=== PATIENT | male | born 1970 | race Caucasian/White ===

== ENCOUNTER 2018-11-03 21:04 | Emergency (ER) | payer OTHER ==
[2018-11-03] MEDS ORDERED: KETOROLAC 30 MG/ML INJ ONE (21:45)
--- NOTE | 2018-11-03 22:23 | ER ---
Nurse's Notes [facility] Name: Jd Devries Age: 48 yrs Sex: Male : 1970 Arrival Date: 11/03/2018 Time: 21:12 Bed 9 Private MD: Diagnosis: Pain in right foot Presentation: 11/03 21:17 Presenting complaint: Patient states: I had an ankle injury in the 90s and it was fine la1 for a while but for the last month it has been getting worse and worse. Pain and burning up my ankle. Unable to work today due to pain and not able to bare weight. Transition of care: patient was not received from another setting of care. Onset of symptoms was November 03, 2018. Risk Assessment: Do you want to hurt yourself or someone else? Patient reports no desire to harm self or others. Initial Sepsis Screen: Does the patient meet any 2 criteria? No. Patient's initial sepsis screen is negative. Does the patient have a suspected source of infection? No. Patient's initial sepsis screen is negative. Care prior to arrival: None. 21:17 Method Of Arrival: Wheelchair la1 21:17 Acuity: PARRIS 4 la1 Historical: - Allergies: 21:18 PENICILLINS; la1 - PMHx: 21:18 Hypertension; Sleep Apnea; High Cholesterol; la1 - Immunization history:: Adult Immunizations up to date. - Social history:: Smoking status: Patient/guardian denies using tobacco. - Ebola Screening: : No symptoms or risks identified at this time. Screenin:23 Abuse screen: Denies threats or abuse. Nutritional screening: No deficits noted. la1 Tuberculosis screening: No symptoms or risk factors identified. Fall Risk None identified. Assessment: 21:22 General: Appears uncomfortable, Behavior is calm, cooperative. Pain: Complains of pain la1 in right lateral malleolus and right Achilles. Neuro: Level of Consciousness is awake, alert, obeys commands, Oriented to person, place, time, situation. Cardiovascular: Capillary refill < 3 seconds Patient's skin is warm and dry. Respiratory: Airway is patent Respiratory effort is even, unlabored. GI: No signs and/or symptoms were reported involving the gastrointestinal system. : No signs and/or symptoms were reported regarding the genitourinary system. Musculoskeletal: Circulation, motion, and sensation intact. Range of motion: limited in right ankle. 22:35 Reassessment: Patient appears in no apparent distress at this time. Patient is alert, aa1 oriented x 3, equal unlabored respirations, skin warm/dry/pink. Discussed d/c \T\ f/u instructions with pt; denies questions or concerns at this time. Vital Signs: 21:19 BP 163 / 96; Pulse 62; Resp 18; Temp 97.8(TE); Pulse Ox 98% on R/A; Weight 140.16 kg; la1 Height 5 ft. 10 in. (177.80 cm); Pain 3/10; 21:19 Body Mass Index 44.34 (140.16 kg, 177.80 cm) la1 ED Course: 21:12 Patient arrived in ED. ds1 21:18 Triage completed. la1 21:18 Arm band placed on left wrist. la1 21:22 Augie Tyson RN is Primary Nurse. la1 21:23 Call light in reach. la1 21:28 Aly Mckeon PA is PHCP. [facility] 21:28 Jorge Cary MD is Attending Physician. [facility] 22:32 Ankle Right 3 View XRAY In Process Unspecified. EDMS 22:35 No provider procedures requiring assistance completed. Patient did not have IV access aa1 during this emergency room visit. Crutch training done. Rickey wrap to right ankle. Administered Medications: 21:44 Drug: Ketorolac 30 mg Route: IM; Site: right gluteus; la1 22:35 Follow up: Response: No adverse reaction; Pain is decreased aa1 Outcome: 22:22 Discharge ordered by . [facility] 22:35 Discharged to home ambulatory, with crutches, with significant other. aa1 22:35 Condition: good 22:35 Discharge instructions given to patient, Instructed on discharge instructions, follow up and referral plans. crutch walking, Demonstrated understanding of instructions, follow-up care, crutch walking. 22:36 Instructed on medication usage, Demonstrated understanding of medications, aa1 Prescriptions given X 1. 22:37 Patient left the ED. aa1 Signatures: Dispatcher [employer] EDMS Brii Little RN RN aa1 Aly Mckeon PA PA [facility] Grace Ontiveros ds1 Attema, Augie, RN RN la1
--- NOTE | 2018-11-03 22:24 | EDPHYS ---
Physician Documentation [facility] Name: Jd Devries Age: 48 yrs Sex: Male : 1970 Arrival Date: 11/03/2018 Time: 21:12 Bed 9 Private MD: ED Physician Jorge Cary HPI: 11/03 21:28 This 48 yrs old Male presents to ER via Wheelchair with complaints of Ankle jmm Injury. 21:28 The patient presents with pain, that is chronic. Onset: The symptoms/episode jmm began/occurred gradually, 1 month(s) ago. This is a 48 year old male with a history of htn, hlp that presents to the ED with complaints of right ankle swelling and pain over the past month and developing in creased pain to his right calcaneus region. . Historical: - Allergies: 21:18 PENICILLINS; la1 - PMHx: 21:18 Hypertension; Sleep Apnea; High Cholesterol; la1 - Immunization history:: Adult Immunizations up to date. - Social history:: Smoking status: Patient/guardian denies using tobacco. - Ebola Screening: : No symptoms or risks identified at this time. ROS: 21:28 Constitutional: Negative for fever, chills, and weight loss, Cardiovascular: Negative jmm for chest pain, palpitations, and edema, Respiratory: Negative for shortness of breath, cough, wheezing, and pleuritic chest pain. 21:28 MS/extremity: Positive for pain, swelling. 21:28 All other systems are negative. Exam: 21:28 Constitutional: This is a well developed, well nourished patient who is awake, alert, jmm and in no acute distress. Head/Face: atraumatic. Eyes: EOMI, no conjunctival erythema appreciated ENT: Moist Mucus Membranes Neck: Trachea midline, Supple Chest/axilla: Normal chest wall appearance and motion. Cardiovascular: Regular rate and rhythm. No edema appreciated Respiratory: Normal respirations, no respiratory distress appreciated Abdomen/GI: Non distended, soft Back: Normal ROM 21:28 Musculoskeletal/extremity: FROM noted to the right ankle, pain on palpation of right calcaneus, TTP, no erythema appreciated, compartments are soft, full dorsalis pulse, NVI. 21:28 Skin: Appearance: Color: normal in color. 21:28 Neuro: Orientation: is normal, Mentation: is normal, Memory: is normal. 21:28 Psych: Behavior/mood is pleasant, cooperative. Vital Signs: 21:19 BP 163 / 96; Pulse 62; Resp 18; Temp 97.8(TE); Pulse Ox 98% on R/A; Weight 140.16 kg; la1 Height 5 ft. 10 in. (177.80 cm); Pain 3/10; 21:19 Body Mass Index 44.34 (140.16 kg, 177.80 cm) la1 MDM: 21:28 Patient medically screened. [facility] 22:21 Data reviewed: vital signs, nurses notes. Counseling: I had a detailed discussion with [facility] the patient and/or guardian regarding: the historical points, exam findings, and any diagnostic results supporting the discharge/admit diagnosis, radiology results, the need for outpatient follow up, to return to the emergency department if symptoms worsen or persist or if there are any questions or concerns that arise at home. 11/03 21:28 Order name: Ankle Right 3 View XRAY [facility] 11/03 22:08 Order name: Rickey wrap-joint; Complete Time: 22:36 [facility] 11/03 22:12 Order name: Crutches; Complete Time: 22:35 [facility] Administered Medications: 21:44 Drug: Ketorolac 30 mg Route: IM; Site: right gluteus; [facility] 22:35 Follow up: Response: No adverse reaction; Pain is decreased aa1 Disposition: 11/04 02:35 Co-signature as Attending Physician, Jorge Cary MD. Disposition: 11/03/18 22:22 Discharged to Home. Impression: Pain in right foot. - Condition is Stable. - Discharge Instructions: Foot Pain. - Prescriptions for Medrol (Vince) 4 mg Oral Tablets, Dose Pack - take 1 tablet by ORAL route as directed - follow package instructions; 1 packet. - Medication Reconciliation Form, Thank You Letter, Antibiotic Education, Prescription Opioid Use form. - Follow up: Private Physician; When: 2 - 3 days; Reason: Recheck today's complaints, Continuance of care, Re-evaluation by your physician. Signatures: Dispatcher [employer] EDBrii Gonzalez RN RN aa1 Aly Mckeon PA PA [facility] Augie Tyson RN RN la1 Jorge Cary MD MD Corrections: (The following items were deleted from the chart) 11/03 22:37 22:22 11/03/2018 22:22 Discharged to Home. Impression: Pain in right foot. Condition is aa1 Stable. Forms are Medication Reconciliation Form, Thank You Letter, Antibiotic Education, Prescription Opioid Use. Follow up: Private Physician; When: 2 - 3 days; Reason: Recheck today's complaints, Continuance of care, Re-evaluation by your physician. ligia
[2018-11-03 23:46] VITALS: BP 163/96; TEMP 97.8; O2SAT 98
--- NOTE | 2018-11-04 09:06 | RAD REPORT ---
EXAM DESCRIPTION: RAD - Ankle Right 3 View - 11/03/2018 10:28 pm CLINICAL HISTORY: Right ankle pain and swelling, progressive pain pattern from a remote injury COMPARISON: Right ankle May 2014 FINDINGS: No fracture, dislocation or periosteal reaction. No joint effusion seen. No joint space na rrowing. Soft tissues are not substantially different from comparison. Spurring at the Achilles tendo n attachment is present but not substantially different. Spurring at the plantar tendon attachment melara s progressed minimally from 2015. IMPRESSION: No acute bone or joint finding. Minimal progression of plantar spurring since 2015.
== END 2018-11-03 22:37 | disposition home or self-care (01) ==
LOC: ER 21:04
DX: M79.671 Pain in right foot (principal); I10 Essential (primary) hypertension; Z88.0 Allergy status to penicillin
CPT/HCPCS: 96372; 99284

== ENCOUNTER 2019-10-17 06:47 | Emergency (ER) | payer BC, OTHER ==
[2019-10-17] MEDS ORDERED: TETANUS & DIPHTHERIA TOX,ADULT 0.5 ML VIAL ONE (07:15)
[2019-10-17] MEDS ORDERED: LIDOCAINE 1% MPF 30 ML VIAL ONE (07:15)
--- NOTE | 2019-10-17 07:44 | EDPHYS ---
Physician Documentation [facility] Name: Jd Devries Age: 49 yrs Sex: Male : 1970 Arrival Date: 10/17/2019 Time: 06:50 Bed 5 Private MD: ED Physician Elvis So HPI: 10/16 06:57 This 49 yrs old Male presents to ER via Unassigned with complaints of Head jmm Injury-Adult. 06:57 The patient or guardian reports injury, a laceration. The complaints affect the left jmm supraorbital ridge. Onset: The symptoms/episode began/occurred acutely, just prior to arrival. This is a 49 year old male that presents to the ED with complaints of a laceration to his left eyebrow. Patient states he was awoken to his dogs fighting in his bed. He believes he was scratched. Not UTD on tetanus immunization. . Historical: - Allergies: 06:58 PENICILLINS; sg - PMHx: 06:58 High Cholesterol; Hypertension; Sleep Apnea; sg - Immunization history:: Adult Immunizations not up to date, Last tetanus immunization: > 10 years ago. - Social history:: Smoking status: Patient denies any tobacco usage or history of. ROS: 06:57 Constitutional: Negative for fever, chills, and weight loss, Cardiovascular: Negative jmm for chest pain, palpitations, and edema, Respiratory: Negative for shortness of breath, cough, wheezing, and pleuritic chest pain. 06:57 Skin: Positive for laceration(s). 06:57 All other systems are negative. Exam: 06:57 Constitutional: This is a well developed, well nourished patient who is awake, alert, jmm and in no acute distress. 06:57 ENT: Moist Mucus Membranes Neck: Trachea midline, Supple Chest/axilla: Normal chest wall appearance and motion. Cardiovascular: Regular rate and rhythm. No edema appreciated Respiratory: Normal respirations, no respiratory distress appreciated Abdomen/GI: Non distended, soft Back: Normal ROM 06:57 Head/face: 3 cm laceration noted to the left upper eyebrow. 06:57 Skin: 3 cm laceration noted to the left supraorbital ridge region. . 06:57 Neuro: Orientation: is normal, Mentation: is normal, Memory: is normal. 06:57 Psych: Behavior/mood is pleasant, cooperative. Vital Signs: 07:02 BP 163 / 106; Pulse 66; Resp 18; Temp 97; Pulse Ox 97% ; Weight 147.42 kg; Height 5 ft. wh 10 in. (177.80 cm); 07:02 Body Mass Index 46.63 (147.42 kg, 177.80 cm) Tk Coma Score: 06:56 Eye Response: spontaneous(4). Verbal Response: oriented(5). Motor Response: obeys sg commands(6). Total: 15. Laceration: 07:40 Wound Repair of 3cm ( 1.2in ) subcutaneous laceration to left supraorbital ridge. jmm Distal neuro/vascular/tendon intact. Anesthesia: Local anesthetic administered with 3 mls of 1% lidocaine. Wound prep: Simple cleansing with betadine by me. Skin closed with 10 6-0 Prolene using simple sutures and sterile technique. Patient tolerated well. MDM: 06:54 Patient medically screened. [facility] 07:40 Data reviewed: vital signs, nurses notes. Counseling: I had a detailed discussion with ligia the patient and/or guardian regarding: the historical points, exam findings, and any diagnostic results supporting the discharge/admit diagnosis, the need for outpatient follow up, to return to the emergency department if symptoms worsen or persist or if there are any questions or concerns that arise at home. ED course: Patient given wound infection return precautions. . Administered Medications: 07:09 Drug: Tetanus-Diphtheria Toxoid Adult 0.5 ml {Relief Cook: [employer]. Exp: sv 05/16/2022. Lot #: [id number]. } Route: IM; Site: right deltoid; 07:49 Follow up: Response: No adverse reaction sv 07:38 Drug: Lidocaine (1 %) 20 ml {Note: given to Aly MEJIAS for procedure.} Volume: 20 ml; sv Route: Infiltration; Disposition: 10:37 Co-signature as Attending Physician, Elvis So MD I agree with the assessment and hailey plan of care. Disposition: 10/17/19 07:43 Discharged to Home. Impression: Facial Laceration. - Condition is Stable. - Discharge Instructions: Facial Laceration. - Prescriptions for Bactrim DS 800- 160 mg Oral Tablet - take 1 tablet by ORAL route every 12 hours for 7 days; 14 tablet. - Medication Reconciliation Form, Thank You Letter, Antibiotic Education, Prescription Opioid Use form. - Follow up: Private Physician; When: 5 - 6 days; Reason: Recheck today's complaints, Continuance of care, Staple/Suture removal, Re-evaluation by your physician. Signatures: Ninfa De La Cruz RN RN sv Gay, Steven, RN RN sg Anderson, Corey, MD MD cha Mickail, Joel, PA PA jmm Corrections: (The following items were deleted from the chart) 07:49 07:43 10/17/2019 07:43 Discharged to Home. Impression: Facial Laceration. Condition is sv Stable. Forms are Medication Reconciliation Form, Thank You Letter, Antibiotic Education, Prescription Opioid Use. Follow up: Private Physician; When: 5 - 6 days; Reason: Recheck today's complaints, Continuance of care, Staple/Suture removal, Re-evaluation by your physician. ligia
--- NOTE | 2019-10-17 07:44 | ER ---
Nurse's Notes [facility] Name: Jd Devries Age: 49 yrs Sex: Male : 1970 Arrival Date: 10/17/2019 Time: 06:50 Bed 5 Private MD: Diagnosis: Facial Laceration Presentation: 10/16 06:56 Chief complaint: Patient states: My dogs were fighting, and I was breaking up the fight sg when I think one of them scratched my left eye brow. Coronavirus screen: Patient denies a cough. Patient denies shortness of breath or difficulty breathing. Patient denies measured and/or subjective temperature greater than 100.4F prior to today's visit. Patient denies travel on a cruise ship or to a country the [facility] currently lists as an affected area. Patient denies contact with known and/or suspected case of COVID-19. Proceed with normal triage. Ebola Screen: Patient negative for fever greater than or equal to 101.5 degrees Fahrenheit, and additional compatible Ebola Virus Disease symptoms Patient denies exposure to infectious person. Patient denies travel to an Ebola-affected area in the 21 days before illness onset. No symptoms or risks identified at this time. Mechanism of Injury: The problem was sustained at home, resulted from. Initial Sepsis Screen: Does the patient meet any 2 criteria? No. Patient's initial sepsis screen is negative. Does the patient have a suspected source of infection? Yes: Skin breakdown/wound. Risk Assessment: Do you want to hurt yourself or someone else? Patient reports no desire to harm self or others. Onset of symptoms was October 17, 2019. Care prior to arrival: None. Transition of care: patient was not received from another setting of care. 06:56 Method Of Arrival: Ambulatory 06:56 Acuity: PARRIS 4 sg Triage Assessment: 07:03 Neuro: Reports. wh 07:10 General: Appears in no apparent distress. comfortable, well developed, Behavior is sv calm, cooperative, appropriate for age. Pain: Complains of pain in left eye. Neuro: Level of Consciousness is awake, alert, obeys commands, Oriented to person, place, time, situation, Moves all extremities. Full function. Respiratory: Respiratory effort is even, unlabored, Respiratory pattern is regular, symmetrical. Derm: Skin is pink, warm \T\ dry. Injury Description: Laceration sustained to left eye is 2.6 to 7.5 cm long. Historical: - Allergies: 06:58 PENICILLINS; sg - PMHx: 06:58 High Cholesterol; Hypertension; Sleep Apnea; sg - Immunization history:: Adult Immunizations not up to date, Last tetanus immunization: > 10 years ago. - Social history:: Smoking status: Patient denies any tobacco usage or history of. Screenin:02 Abuse screen: Denies threats or abuse. Denies injuries from another. Nutritional wh screening: No deficits noted. Tuberculosis screening: No symptoms or risk factors identified. Fall Risk None identified. Assessment: 07:24 Reassessment: Aly MEJIAS at bedside. sv 07:48 Reassessment: Patient appears in no apparent distress at this time. Patient and/or sv family updated on plan of care and expected duration. Pain level reassessed. Patient is alert, oriented x 3, equal unlabored respirations, skin warm/dry/pink. Patient denies pain at this time. Patient states feeling better. Patient states symptoms have improved. Vital Signs: 07:02 BP 163 / 106; Pulse 66; Resp 18; Temp 97; Pulse Ox 97% ; Weight 147.42 kg; Height 5 ft. wh 10 in. (177.80 cm); 07:02 Body Mass Index 46.63 (147.42 kg, 177.80 cm) Tk Coma Score: 06:56 Eye Response: spontaneous(4). Verbal Response: oriented(5). Motor Response: obeys sg commands(6). Total: 15. ED Course: 06:50 Patient arrived in ED. cl3 06:51 Elvis So MD is Attending Physician. hailey 06:52 Aly Mckeon PA is PHCP. jmm 06:56 Arm band placed on. sg 06:58 Triage completed. sg 07:02 Ninfa De La Cruz, RN is Primary Nurse. sv 07:03 Patient has correct armband on for positive identification. Bed in low position. Call wh light in reach. Side rails up X 1. Pulse ox on. NIBP on. 07:11 Assist provider with laceration repair Set up tray. sv 07:24 Patient did not have IV access during this emergency room visit. sv 07:43 Assist provider with laceration repair on left eye that was between 2.6 to 7.5 cm using sv sutures. Performed by Aly MEJIAS Patient tolerated well. Administered Medications: 07:09 Drug: Tetanus-Diphtheria Toxoid Adult 0.5 ml {Electrical Laboratory Technician: [employer]. Exp: sv 05/16/2022. Lot #: [id number]. } Route: IM; Site: right deltoid; 07:49 Follow up: Response: No adverse reaction sv 07:38 Drug: Lidocaine (1 %) 20 ml {Note: given to Aly MEJIAS for procedure.} Volume: 20 ml; sv Route: Infiltration; Outcome: 07:43 Discharge ordered by . ligia 07:48 Discharged to home ambulatory. sv 07:48 Condition: stable 07:48 Discharge instructions given to patient, Instructed on discharge instructions, follow up and referral plans. medication usage, wound care, Demonstrated understanding of instructions, follow-up care, medications, wound care, Prescriptions given X 1. 07:49 Patient left the ED. sv Signatures: Ninfa De La Cruz RN RN sv Gay, Steven, RN RN sg Anderson, Corey, MD MD cha Mickail, Joel, PA PA jmm Habalo, Winsy wh Lewis, Charde cl3
[2019-10-17 07:54] VITALS: BP 163/106; TEMP 97; O2SAT 97
== END 2019-10-17 07:49 | disposition home or self-care (01) ==
LOC: ER 06:47
PROC: 0JQ10ZZ Repair Face Subcutaneous Tissue and Fascia, Open Approach (ICD-10-PCS; principal; 2019-10-17)
DX: S01.112A Laceration without foreign body of left eyelid and periocular area, initial encounter (principal); W45.8XXA Other foreign body or object entering through skin, initial encounter; Y93.89 Activity, other specified; Y92.009 Unspecified place in unspecified non-institutional (private) residence as the place of occurrence of the external cause; Z23 Encounter for immunization; Z88.0 Allergy status to penicillin; I10 Essential (primary) hypertension
CPT/HCPCS: 90471; 90714; 99284

== ENCOUNTER 2019-11-10 21:19 | Emergency (ER) | payer BC ==
[2019-11-10] MEDS ORDERED: HYDRALAZINE HCL 20 MG/ML VIAL ONE ×2 (22:30→23:06)
[2019-11-10 22:32] LABS: Absolute Lymphocytes (CBC) 2.8 K/uL (0.7-4.9); Basophils % 0.4 % (0-1.3); Hematocrit 43.6 % (39.6-49.0); Lymphocytes % 30.8 % (15.3-44.8); MPV 9.6 fL (7.6-11.3); RBC Red Blood Cell Count 5.38 M/uL (4.33-5.43)
[2019-11-10 22:33] LABS: Protime INR 0.99
[2019-11-10 22:49] LABS: ALT/SGPT 57 U/L (12-78); Albumin 3.7 g/dL (3.4-5.0); Alkaline Phosphatase 135 U/L (45-117); BUN Blood Urea Nitrogen 19 mg/dL (7-18); Bicarbonate 28 mmol/L (21-32); Bilirubin Direct < 0.1 mg/dL (0-0.2); Bilirubin Total 0.3 mg/dL (0.2-1.0); Glucose Level 128 mg/dL (74-106); NT PRO-BNP 12 pg/mL (<125); Protein, Total 7.2 g/dL (6.4-8.2); Sodium Level 142 mmol/L (136-145); Troponin (Emerg Dept Use Only) < 0.02 ng/mL (0.0-0.045)
[2019-11-10 22:53] LABS: AST/SGOT 25 U/L (15-37); Magnesium 2.4 mg/dL (1.8-2.4); Potassium 3.7 mmol/L (3.5-5.1)
[2019-11-10] MEDS ORDERED: LABETALOL 20 MG/4ML SYRINGE IV ONE (23:56)
[2019-11-11] MEDS ORDERED: cloNIDine HCL 0.1 MG TAB ONE (00:13)
[2019-11-11] MEDS ORDERED: LABETALOL 20 MG/4ML SYRINGE IV ONE (00:13)
--- NOTE | 2019-11-11 00:14 | ER ---
Nurse's Notes [facility] Name: Jd Devries Age: 49 yrs Sex: Male : 1970 Arrival Date: 11/10/2019 Time: 21:21 Bed 13 Private MD: Diagnosis: Hypertension secondary to other renal disorders Presentation: 11/09 21:41 Chief complaint: Patient states: " My blood pressure has been elevated today, I even vc took a second dose, about 1900, to try and help with my blood pressure I started feeling short of breath with exertion, I can't even walk to the bathroom without getting winded, I'm having some chest pressure and a tension headache.". Coronavirus screen: shortness of breath, Client presents with at least one sign or symptom that may indicate coronavirus-19. Standard/surgical mask placed on the client. Ebola Screen: No symptoms or risks identified at this time. 21:41 Method Of Arrival: Ambulatory vc 21:45 Initial Sepsis Screen: Does the patient meet any 2 criteria? RR > 20 per min. No. vc Patient's initial sepsis screen is negative. Does the patient have a suspected source of infection? No. Patient's initial sepsis screen is negative. Risk Assessment: Do you want to hurt yourself or someone else? Patient reports no desire to harm self or others. Onset of symptoms was November 10, 2019. 21:45 Acuity: PARRIS 3 vc Triage Assessment: 21:49 General: Appears in no apparent distress. uncomfortable, obese, Behavior is calm, vc cooperative, appropriate for age. Respiratory: Reports shortness of breath on exertion Airway is patent Respiratory effort is even, labored, Respiratory pattern is regular, hyperventilation Onset: The symptoms/episode began/occurred today, the patient has mild shortness of breath. Historical: - Allergies: 21:47 PENICILLINS; vc - PMHx: 21:47 High Cholesterol; Hypertension; Sleep Apnea; vc - Immunization history:: Adult Immunizations up to date. - Social history:: Smoking status: Patient reports the use of cigarette tobacco products, denies chronic smoking, but will smoke occasionally. Screenin:48 Abuse screen: Denies threats or abuse. Nutritional screening: No deficits noted. vc Tuberculosis screening: No symptoms or risk factors identified. Fall Risk None identified. Assessment: 21:48 Pain: Complains of pain in head. Cardiovascular: Rhythm is regular. Respiratory: Airway vc is patent Respiratory effort is even. 22:27 General: Appears in no apparent distress. obese, Behavior is calm, cooperative. Neuro: ls4 No deficits noted. Cardiovascular: Edema is 1+ to left ankle, left foot, right ankle and right foot. Respiratory: Breath sounds are clear bilaterally. Derm: Skin is pink, warm \\T\\ dry. 22:30 Reassessment: Patient appears in no apparent distress at this time. Patient and/or ls4 family updated on plan of care and expected duration. Pain level reassessed. Patient is alert, oriented x 3, equal unlabored respirations, skin warm/dry/pink. 23:30 Reassessment: Assumed care of patient from Griselda Villarreal RN. vc 23:37 Reassessment: Patient appears in no apparent distress at this time. Patient and/or vc family updated on plan of care and expected duration. Pain level reassessed. Patient is alert, oriented x 3, equal unlabored respirations, skin warm/dry/pink. 11/10 00:25 Reassessment: Patient appears in no apparent distress at this time. Patient and/or vc family updated on plan of care and expected duration. Pain level reassessed. Patient is alert, oriented x 3, equal unlabored respirations, skin warm/dry/pink. 00:25 Reassessment: Patient states feeling better. Patient states symptoms have improved. vc Vital Signs: 11/09 21:45 BP 163 / 89; Pulse 75; Resp 23; Temp 98.1; Pulse Ox 98% on R/A; Weight 145.15 kg; vc Height 5 ft. 10 in. (177.80 cm); Pain 0/10; 22:28 BP 155 / 110; Pulse 72; Resp 16; Pulse Ox 99% on R/A; Pain 0/10; ls4 23:30 BP 171 / 83; Pulse 90; Resp 18; Pulse Ox 96% on R/A; vc 23:51 BP 155 / 85; Pulse 89; Resp 18; Pulse Ox 95% on R/A; vc 11/10 00:00 BP 143 / 84; Pulse 91; Resp 20; Pulse Ox 97% on R/A; vc 00:10 BP 129 / 76; Pulse 92; Resp 17; Pulse Ox 96% on R/A; vc 11/09 21:45 Body Mass Index 45.91 (145.15 kg, 177.80 cm) vc ED Course: 11/09 21:21 Patient arrived in ED. ag3 21:38 Griselda Villarreal, MARIZOL is Primary Nurse. ls4 21:42 Wilner Buckner MD is Attending Physician. tw4 21:47 Triage completed. vc 21:50 Arm band placed on right wrist. vc 21:50 Patient has correct armband on for positive identification. Bed in low position. Pulse vc ox on. NIBP on. 21:55 XRAY Chest (1 view) In Process Unspecified. EDMS 22:26 No provider procedures requiring assistance completed. Initial lab(s) drawn, by isa mccain sent to lab. EKG done, by ED staff, reviewed by Wilner Buckner MD. Inserted saline lock: 18 gauge in right antecubital area, using aseptic technique. Blood collected. Patient maintains SpO2 saturation greater than 95% on room air. 11/10 00:25 IV discontinued, intact, bleeding controlled, No redness/swelling at site. Pressure vc dressing applied. Administered Medications: 11/09 22:25 Drug: hydrALAZINE 10 mg Route: IV; Rate: bolus; Site: right antecubital; ls4 23:08 Drug: hydrALAZINE 10 mg Route: IV; Rate: bolus; Site: right antecubital; ls4 23:49 Drug: Labetalol 10 mg Route: IVP; Site: right antecubital; vc 23:58 Follow up: Response: Blood pressure is unchanged vc 23:51 Drug: cloNIDine 0.1 mg Route: PO; vc 11/10 00:15 Follow up: Response: No adverse reaction; Blood pressure is lowered vc 00:00 Drug: Labetalol 20 mg Route: IVP; Infused Over: 2 mins; Site: right antecubital; vc 00:15 Follow up: Response: Blood pressure is lowered vc Outcome: 00:13 Discharge ordered by . tw4 00:25 Discharged to home ambulatory. vc 00:25 Condition: improved 00:25 Discharge instructions given to patient, Instructed on discharge instructions, follow up and referral plans. medication usage, Demonstrated understanding of instructions, follow-up care, medications, Prescriptions given X 1. 00:27 Patient left the ED. oe Signatures: Dispatcher [employer] EDPR Nuno, Wilner Chan MD MD tw4 Annabel Downing ag3 Griselda Villarreal, MARIZOL RN ls4 Kirstin Kamara RN RN vc
--- NOTE | 2019-11-11 00:14 | EDPHYS ---
Physician Documentation [facility] Name: Jd Devries Age: 49 yrs Sex: Male : 1970 Arrival Date: 11/10/2019 Time: 21:21 Bed 13 Private MD: ED Physician Wilner Buckner HPI: 11/10 06:19 This 49 yrs old Male presents to ER via Ambulatory with complaints of tw4 Shortness Of Breath. 06:19 The patient has shortness of breath with light activity. Onset: The symptoms/episode tw4 began/occurred today. Duration: The symptoms are continuous, and are steadily getting worse. The patient's shortness of breath has no apparent modifying factors. Associated signs and symptoms: The patient has no apparent associated signs or symptoms. Severity of symptoms: At their worst the symptoms were moderate in the emergency department the symptoms are unchanged. The patient has not experienced similar symptoms in the past. Historical: - Allergies: 11/09 21:47 PENICILLINS; vc - PMHx: 21:47 High Cholesterol; Hypertension; Sleep Apnea; vc - Immunization history:: Adult Immunizations up to date. - Social history:: Smoking status: Patient reports the use of cigarette tobacco products, denies chronic smoking, but will smoke occasionally. ROS: 11/10 06:19 Constitutional: Negative for fever, chills, and weight loss, Eyes: Negative for injury, tw4 pain, redness, and discharge, ENT: Negative for injury, pain, and discharge, Cardiovascular: Negative for chest pain, palpitations, and edema, Abdomen/GI: Negative for abdominal pain, nausea, vomiting, diarrhea, and constipation, Back: Negative for injury and pain, MS/Extremity: Negative for injury and deformity, Skin: Negative for injury, rash, and discoloration, Neuro: Negative for headache, weakness, numbness, tingling, and seizure. Respiratory: Positive for cough, dyspnea on exertion, shortness of breath, Negative for hemoptysis, orthopnea, pleurisy. Exam: 06:19 Constitutional: This is a well developed, well nourished patient who is awake, alert, tw4 and in no acute distress. Head/Face: Normocephalic, atraumatic. Chest/axilla: Normal chest wall appearance and motion. Nontender with no deformity. No lesions are appreciated. Cardiovascular: Regular rate and rhythm with a normal S1 and S2. No gallops, murmurs, or rubs. Normal PMI, no JVD. No pulse deficits. Respiratory: Lungs have equal breath sounds bilaterally, clear to auscultation and percussion. No rales, rhonchi or wheezes noted. No increased work of breathing, no retractions or nasal flaring. Abdomen/GI: Soft, non-tender, with normal bowel sounds. No distension or tympany. No guarding or rebound. No evidence of tenderness throughout. Back: No spinal tenderness. No costovertebral tenderness. Full range of motion. MS/ Extremity: Pulses equal, no cyanosis. Neurovascular intact. Full, normal range of motion. Neuro: Awake and alert, GCS 15, oriented to person, place, time, and situation. Cranial nerves II-XII grossly intact. Motor strength 5/5 in all extremities. Sensory grossly intact. Cerebellar exam normal. Normal gait. Vital Signs: 11/09 21:45 BP 163 / 89; Pulse 75; Resp 23; Temp 98.1; Pulse Ox 98% on R/A; Weight 145.15 kg; vc Height 5 ft. 10 in. (177.80 cm); Pain 0/10; 22:28 BP 155 / 110; Pulse 72; Resp 16; Pulse Ox 99% on R/A; Pain 0/10; ls4 23:30 BP 171 / 83; Pulse 90; Resp 18; Pulse Ox 96% on R/A; vc 23:51 BP 155 / 85; Pulse 89; Resp 18; Pulse Ox 95% on R/A; vc 11/10 00:00 BP 143 / 84; Pulse 91; Resp 20; Pulse Ox 97% on R/A; vc 00:10 BP 129 / 76; Pulse 92; Resp 17; Pulse Ox 96% on R/A; vc 11/09 21:45 Body Mass Index 45.91 (145.15 kg, 177.80 cm) vc MDM: 11/09 21:42 Patient medically screened. tw4 11/10 06:19 Differential diagnosis: Anemia Anxiety Reaction Myocardial Infarction pneumonia, tw4 Pneumothorax pulmonary edema, Pulmonary Embolism reactive airway disease, Unstable Angina. Data reviewed: vital signs, nurses notes. Data reviewed: lab test result(s), CBC, electrolytes, hepatic panel. Data interpreted: Pulse oximetry: Interpretation: normal. 11/09 21:44 Order name: Basic Metabolic Panel; Complete Time: 22:57 [facility] 11/09 22:57 Interpretation: Normal except: GLUC 128; BUN 19; GFR 65. [facility] 11/09 21:44 Order name: CBC with Diff; Complete Time: 22:57 [facility] 11/09 22:57 Interpretation: Within normal limits. [facility] 11/09 21:44 Order name: LFT's; Complete Time: 22:57 [facility] 11/09 22:57 Interpretation: Normal except: ALK 135. [facility] 11/09 21:44 Order name: Magnesium; Complete Time: 22:57 [facility] 11/09 22:57 Interpretation: Within normal limits: MG 2.4. [facility] 11/09 21:44 Order name: NT PRO-BNP; Complete Time: 22:57 [facility] 11/09 22:57 Interpretation: Within normal limits: NT PRO-BNP 12. tw 11/09 21:44 Order name: PT-INR; Complete Time: 22:57 [facility] 11/09 22:57 Interpretation: Within normal limits: PT 11.7. [facility] 11/09 21:44 Order name: Troponin (emerg Dept Use Only); Complete Time: 22:57 [facility] 11/09 22:58 Interpretation: Within normal limits: TROPED < 0.02. [facility] 11/09 21:44 Order name: XRAY Chest (1 view) [facility] 11/09 21:44 Order name: EKG; Complete Time: 21:45 [facility] 11/09 21:44 Order name: Cardiac monitoring; Complete Time: 22:26 [facility] 11/09 21:44 Order name: EKG - Nurse/Tech; Complete Time: 22:26 [facility] 11/09 21:44 Order name: IV Saline Lock; Complete Time: 22:26 [facility] 11/09 21:44 Order name: Labs collected and sent; Complete Time: 22:26 [facility] 11/09 21:44 Order name: O2 Per Protocol; Complete Time: 22:26 [facility] 11/09 21:44 Order name: O2 Sat Monitoring; Complete Time: 22:26 tw4 Administered Medications: 11/09 22:25 Drug: hydrALAZINE 10 mg Route: IV; Rate: bolus; Site: right antecubital; ls4 23:08 Drug: hydrALAZINE 10 mg Route: IV; Rate: bolus; Site: right antecubital; ls4 23:49 Drug: Labetalol 10 mg Route: IVP; Site: right antecubital; vc 23:58 Follow up: Response: Blood pressure is unchanged vc 23:51 Drug: cloNIDine 0.1 mg Route: PO; vc 11/10 00:15 Follow up: Response: No adverse reaction; Blood pressure is lowered vc 00:00 Drug: Labetalol 20 mg Route: IVP; Infused Over: 2 mins; Site: right antecubital; vc 00:15 Follow up: Response: Blood pressure is lowered vc Disposition: 11/11/19 00:13 Discharged to Home. Impression: Hypertension secondary to other renal disorders. - Condition is Stable. - Discharge Instructions: Hypertension, Hypertension, [id number]. - Prescriptions for Lisinopril- Hydrochlorothiazide 20-12.5 mg Oral Tablet - take 1 tablet by ORAL route once daily; 20 tablet. - Medication Reconciliation Form, Thank You Letter, Antibiotic Education, Prescription Opioid Use form. - Follow up: Private Physician; When: Upon discharge from the Emergency Department; Reason: Recheck today's complaints, Continuance of care, Re-evaluation by your physician. - Problem is new. - Symptoms have improved. Signatures: Dispatcher [employer] EDMS Nas Nuno Terrence, MD MD tw4 Griselda Villarreal, RN RN ls4 Kirstin Kamara RN RN vc Corrections: (The following items were deleted from the chart) 00:27 00:13 11/11/2019 00:13 Discharged to Home. Impression: Hypertension secondary to other oe renal disorders. Condition is Stable. Forms are Medication Reconciliation Form, Thank You Letter, Antibiotic Education, Prescription Opioid Use. Follow up: Private Physician; When: Upon discharge from the Emergency Department; Reason: Recheck today's complaints, Continuance of care, Re-evaluation by your physician. Problem is new. Symptoms have improved. tw4
[2019-11-11] MEDS ORDERED: KETOROLAC 30 MG/ML INJ ONE (00:30)
[2019-11-11 01:04] VITALS: TEMP 98.1
[2019-11-11 01:05] VITALS: BP 155/110; O2SAT 99
--- NOTE | 2019-11-11 07:40 | RAD REPORT ---
EXAM DESCRIPTION: [place] Single View11/10/2019 9:55 pm CLINICAL HISTORY: Chest pain COMPARISON: 2015 FINDINGS: The lungs appear clear of acute infiltrate. The heart is normal size IMPRESSION: No acute abnormalities displayed
== END 2019-11-11 00:27 | disposition home or self-care (01) ==
LOC: ER 21:19
DX: I15.1 Hypertension secondary to other renal disorders (principal); I10 Essential (primary) hypertension; F17.210 Nicotine dependence, cigarettes, uncomplicated; Z88.0 Allergy status to penicillin
CPT/HCPCS: 93005; 85025; 80048; 36415; 83735; 85610; 80076; 84484; 83880; 71045; J0360 ×2; 96374; 96375; 99285

== ENCOUNTER 2020-10-25 14:23 | Observation (INO) | payer BC ==
--- OUTSIDE RECORDS SUMMARY | 2020-10-25 14:26 | XMS REPORT | Continuity of Care Document ---
:1970 Author Organization [facility] t Address [address] [place] [address] Care Team Providers Name Role Phone Unavailable Unavailable Unavailable Problems This patient has no known problems. Allergies, Adverse Reactions, Alerts This patient has no known allergies or adverse reactions. Medications This patient has no known medications. Procedures This patient has no known procedures. Encounters Start End Encounter Admission Attending Care Care Encounter Source Date/Time Date/Time Type Type Clinicians Facility Department ID 2020-09-25 2020-09-25 Outpatient [facility] [id number] [facility] 00:00:00 [facility]00[facility]00 [facility] 2020-09-03 2020-09-03 Outpatient [facility] [id number] 00[facility]00[facility]00 00[facility]00:00 [facility] 2020-08-26 2020-08-26 Outpatient [facility] [id number] 00:00:00 00[facility]00:00 [facility] 2020-08-04 2020-08-04 Outpatient [facility] [id number] [facility] 00[facility]00[facility]00 00[facility]00[facility]00 [facility] 2020-07-28 2020-07-28 Outpatient [facility] [id number] [place] [place] [facility]00 [facility]00[facility] 2020-07-21 2020-07-21 [facility] [id number] [facility] 2020-07-13 2020-07-13 [facility] [id number] [facility] 2020-07-01 2020-07-01 [facility] [id number] [facility] 2020-06-30 2020-06-30 [facility] [id number] [facility] 2020-06-26 2020-06-26 [facility] [id number] [facility] 2020-05-26 2020-05-26 [facility] [id number] [facility] 2020-04-22 2020-04-22 Out[facility] [id number] [facility] 2020-04-09 2020-04-09 Out[facility] [id number] [facility] 2020-04-08 2020-04-08 Out[facility] [id number] [facility] 2020-03-25 2020-03-25 Out[facility] [id number] [facility] 2019-12-18 2019-12-18 Outpatient [facility] [id number] [facility] 2019-12-18 2019-12-18 Out[facility] [id number] [facility] 00[facility]00:00 00:00:00 [facility] Results This patient has no known results.
--- NOTE | 2020-10-25 15:26 | RAD REPORT ---
EXAM DESCRIPTION: CT - Head Brain Wo Cont - 10/25/2020 3:08 pm CLINICAL HISTORY: DIZZINESS Headache, drowsiness COMPARISON: <Comparisons> TECHNIQUE: All CT scans are performed using dose optimization technique as appropriate and may inclu de automated exposure control or mA/KV adjustment according to patient size. FINDINGS: No intracranial hemorrhage, hydrocephalus or extra-axial fluid collection.No areas of brai n edema or evidence of midline shift. The paranasal sinuses and mastoids are clear. The calvarium is intact. IMPRESSION: No acute intracranial abnormality.
--- NOTE | 2020-10-25 15:26 | RAD REPORT ---
EXAM DESCRIPTION: RAD - Chest Single View - 10/25/2020 3:08 pm CLINICAL HISTORY: CHEST PAIN Chest pain. COMPARISON: Chest Single View dated 11/10/2019; Chest Single View dated 01/04/2016; Chest Single View dated 01/03/2016 FINDINGS: Portable technique limits examination quality. The lungs are grossly clear. The heart is normal in size. No displaced fractures. IMPRESSION: No acute intrathoracic process suspected.
[2020-10-25] MEDS ORDERED: ONDANSETRON 4 MG/2 ML VIAL ONE (15:39)
[2020-10-25] MEDS ORDERED: NA CHLORIDE 0.9% 1,000 ML ONE ×3 (15:39→18:56)
[2020-10-25] MEDS ORDERED: DIAZEPAM 10 MG/2 ML INJ SYRINGE ONE (15:39)
[2020-10-25 15:55] LABS: Absolute Lymphocytes (CBC) 2.1 K/uL (0.7-4.9); Basophils % 1.1 % (0-1.3); Lymphocytes % 28.1 % (15.3-44.8); MPV 8.8 fL (7.6-11.3); RBC Red Blood Cell Count 5.23 M/uL (4.33-5.43)
[2020-10-25 16:01] LABS: Protime INR 1.01
[2020-10-25 16:14] LABS: ALT/SGPT 60 U/L (12-78); AST/SGOT 24 U/L (15-37); Albumin 3.8 g/dL (3.4-5.0); Alkaline Phosphatase 99 U/L (45-117); BUN Blood Urea Nitrogen 22 mg/dL (7-18); Bicarbonate 28 mmol/L (21-32); Bilirubin Direct 0.1 mg/dL (0-0.2); Bilirubin Total 0.6 mg/dL (0.2-1.0); Glucose Level 104 mg/dL (74-106); Magnesium 2.4 mg/dL (1.8-2.4); Potassium 3.6 mmol/L (3.5-5.1); Protein, Total 7.2 g/dL (6.4-8.2); Sodium Level 140 mmol/L (136-145); Troponin (Emerg Dept Use Only) < 0.02 ng/mL (0.0-0.045)
[2020-10-25 16:42] LABS: NT PRO-BNP < 5 pg/mL (<125)
--- NOTE | 2020-10-25 18:31 | ER ---
Nurse's Notes [facility] Name: Jd Devries Age: 50 yrs Sex: Male : 1970 Arrival Date: 10/25/2020 Time: 14:26 Bed 19 Private MD: Diagnosis: Chest pain, unspecified;Dizziness and giddiness Presentation: 10/25 14:47 Chief complaint: Patient states: CP, SOB, and dizziness started at 1000 today. No cough ll1 or fever. Coronavirus screen: Client denies travel out of the [place] in the last 14 days. At this time, the client does not indicate any symptoms associated with coronavirus-19. Ebola Screen: Patient denies travel to an Ebola-affected area in the 21 days before illness onset. Initial Sepsis Screen: Does the patient meet any 2 criteria? No. Patient's initial sepsis screen is negative. Does the patient have a suspected source of infection? Yes: Other: CP/SOB. Risk Assessment: Do you want to hurt yourself or someone else? Patient reports no desire to harm self or others. Onset of symptoms was October 25, 2020. 14:47 Method Of Arrival: Ambulatory ll1 14:47 Acuity: PARRIS 3 ll1 Triage Assessment: 15:00 General: Appears in no apparent distress. comfortable, obese, Behavior is cooperative, bp appropriate for age, anxious. Pain: Complains of pain in chest. EENT: No deficits noted. Neuro: No deficits noted. Cardiovascular: Reports chest pain. Respiratory: Reports. GI: No signs and/or symptoms were reported involving the gastrointestinal system. : No signs and/or symptoms were reported regarding the genitourinary system. Derm: No deficits noted. Musculoskeletal: No deficits noted. Historical: - Allergies: 14:48 PENICILLINS; ll1 - Home Meds: 21:22 lisinopril-hydrochlorothiazide 20-12.5 mg Oral tab 1 tab once daily [Active]; Flomax ld1 0.4 mg Oral cap 1 cap once daily [Active]; - PMHx: 14:48 High Cholesterol; Hypertension; Sleep Apnea; ll1 - Immunization history:: Client reports receiving the 2nd dose of the Covid vaccine, Flu vaccine is not up to date. - Social history:: Smoking status: Patient reports the use of cigarette tobacco products, cigars. Screenin:00 Abuse screen: Denies threats or abuse. Denies injuries from another. Nutritional bp screening: No deficits noted. Tuberculosis screening: No symptoms or risk factors identified. Fall Risk None identified. Assessment: 15:00 General: SEE TRIAGE NOTE. bp 16:00 Reassessment: No changes from previously documented assessment. Patient and/or family bp updated on plan of care and expected duration. Pain level reassessed. 18:00 Reassessment: No changes from previously documented assessment. Patient and/or family bp updated on plan of care and expected duration. Pain level reassessed. ADMIT PENDING. 19:36 Reassessment: No changes from previously documented assessment. Patient and/or family em updated on plan of care and expected duration. Pain level reassessed. Patient is alert, oriented x 3, equal unlabored respirations, skin warm/dry/pink. Patient denies pain at this time. Patient states feeling better. Vital Signs: 14:47 BP 122 / 79; Pulse 80; Resp 18; Temp 97.5; Pulse Ox 96% on R/A; Weight 149.69 kg; ll1 Height 5 ft. 10 in. (177.80 cm); Pain 5/10; 16:00 BP 119 / 68; Pulse 81; Resp 15; Pulse Ox 94% on R/A; bp 17:00 BP 123 / 67; Pulse 80; Resp 15; Pulse Ox 95% ; bp 18:00 BP 123 / 50; Pulse 73; Resp 16; Pulse Ox 95% ; bp 19:00 BP 121 / 70; Pulse 73; Resp 15; Pulse Ox 98% ; bp 19:36 BP 127 / 72; Pulse 72; Resp 18; Temp 97.8; Pulse Ox 100% on R/A; Pain 0/10; em 14:47 Body Mass Index 47.35 (149.69 kg, 177.80 cm) ll1 ED Course: 14:26 Patient arrived in ED. ds1 14:34 Aly Mckeon PA is PHCP. jmm 14:34 Jesse Padilla MD is Attending Physician. jmm 14:42 Arm band placed on Patient placed in an exam room, on a stretcher. ll1 14:48 Triage completed. ll1 15:00 Patient has correct armband on for positive identification. Bed in low position. Call bp light in reach. Side rails up X2. Adult w/ patient. gambling monitor on. Pulse ox on. NIBP on. 15:00 Inserted saline lock: 20 gauge in right antecubital area, using aseptic technique. bp Blood collected. Patient maintains SpO2 saturation greater than 95% on room air. 15:02 Dell Ortiz, MARIZOL is Primary Nurse. bp 15:08 CT Head Brain wo Cont In Process Unspecified. EDMS 15:08 XRAY Chest (1 view) In Process Unspecified. EDMS 18:29 Bety Prescott MD is Hospitalizing Provider. [facility] 19:30 Primary Nurse role handed off by Dell Ortiz RN mw2 19:36 Adam Conway RN is Primary Nurse. em 10/26 07:00 Primary Nurse role handed off by Adam Conway RN bp 07:00 Dell Ortiz, MARIZOL is Primary Nurse. bp 19:42 No provider procedures requiring assistance completed. Patient admitted, IV remains in em place. Administered Medications: 10/25 15:00 Drug: Valium (diazepam) 2 mg Route: IVP; Site: right antecubital; bp 17:48 Follow up: Response: No adverse reaction bp 15:00 Drug: Zofran (Ondansetron) 4 mg Route: IVP; Site: left antecubital; bp 17:48 Follow up: Response: No adverse reaction bp 15:00 Drug: NS 0.9% 1000 ml Route: IV; Rate: 1 bolus; Site: right antecubital; bp 10/26 19:43 Follow up: IV Status: Completed infusion; IV Intake: 1000ml em 10/25 17:00 Drug: NS 0.9% 1000 ml Route: IV; Rate: 1 bolus; Site: right antecubital; bp / 19:42 Follow up: IV Status: Completed infusion; IV Intake: 1000ml em 10/25 18:35 Drug: Aspirin Chewable Tablet 324 mg Route: PO; bp 19:07 Follow up: Response: No adverse reaction bp Intake: 10/26 19:42 IV: 1000ml; Total: 1000ml. em 19:43 IV: 1000ml; Total: 2000ml. em Outcome: 10/25 18:31 Decision to Hospitalize by Provider. [facility] 10/26 19:44 Admitted to Med/surg accompanied by nurse, via wheelchair, room 208, with chart, Report em called to MARIZOL Aparicio Condition: good Instructed on the need for admit, Demonstrated understanding of instructions. 19:49 Patient left the ED. em Signatures: Dispatcher [employer] Aly Bentley PA PA jmm Munoz, Edgar, RN RN Grace Meyers ds1 Dell Ortiz RN RN Briana Up mw2 Sully Suárez RN RN ll1 Alexandra Moreno RN RN ld1
--- NOTE | 2020-10-25 18:32 | EDPHYS ---
Physician Documentation [facility] Name: Jd Devries Age: 50 yrs Sex: Male : 1970 Arrival Date: 10/25/2020 Time: 14:26 Bed 19 Private MD: ED Physician Jesse Padilla HPI: 10/25 14:47 This 50 yrs old Male presents to ER via Ambulatory with complaints of Chest jm Pain, Shortness Of Breath. 14:47 The patient or guardian reports chest pain that is located primarily in the substernal [facility] area. Onset: acutely, at 10:00. The pain does not radiate. Associated signs and symptoms: Pertinent positives: dizziness, palpitations, shortness of breath. The chest pain is described as a pressure. Duration: The patient or guardian reports a single episode, that is still ongoing, and unchanged. Modifying factors: The symptoms are alleviated by nothing. the symptoms are aggravated by exertion. The patient has experienced a previous episode. Historical: - Allergies: 14:48 PENICILLINS; ll1 - Home Meds: 21:22 lisinopril-hydrochlorothiazide 20-12.5 mg Oral tab 1 tab once daily [Active]; Flomax ld1 0.4 mg Oral cap 1 cap once daily [Active]; - PMHx: 14:48 High Cholesterol; Hypertension; Sleep Apnea; ll1 - Immunization history:: Client reports receiving the 2nd dose of the Covid vaccine, Flu vaccine is not up to date. - Social history:: Smoking status: Patient reports the use of cigarette tobacco products, cigars. ROS: 14:47 Constitutional: Negative for fever, chills, and weight loss. jmm 14:47 Cardiovascular: Positive for chest pain. 14:47 Respiratory: Positive for shortness of breath. 14:47 Neuro: Positive for dizziness. 14:47 All other systems are negative. Exam: 14:47 Constitutional: This is a well developed, well nourished patient who is awake, alert, jmm and in no acute distress. Head/Face: atraumatic. 14:47 ENT: Moist Mucus Membranes Neck: Trachea midline, Supple Chest/axilla: Normal chest wall appearance and motion. Cardiovascular: Regular rate and rhythm. No edema appreciated Respiratory: Normal respirations, no respiratory distress appreciated Abdomen/GI: Non distended, soft Back: Normal ROM Skin: General appearance color normal MS/ Extremity: Moves all extremities, no obvious deformities appreciated, no edema noted to the lower extremities Neuro: Awake and alert, normal gait Psych: Behavior is normal, Mood is normal, Patient is cooperative and pleasant 14:47 Eyes: Extraocular movements: intact throughout, Nystagmus: nystagmus with fast component noted, bilaterally. Vital Signs: 14:47 BP 122 / 79; Pulse 80; Resp 18; Temp 97.5; Pulse Ox 96% on R/A; Weight 149.69 kg; ll1 Height 5 ft. 10 in. (177.80 cm); Pain 5/10; 16:00 BP 119 / 68; Pulse 81; Resp 15; Pulse Ox 94% on R/A; bp 17:00 BP 123 / 67; Pulse 80; Resp 15; Pulse Ox 95% ; bp 18:00 BP 123 / 50; Pulse 73; Resp 16; Pulse Ox 95% ; bp 19:00 BP 121 / 70; Pulse 73; Resp 15; Pulse Ox 98% ; bp 19:36 BP 127 / 72; Pulse 72; Resp 18; Temp 97.8; Pulse Ox 100% on R/A; Pain 0/10; em 14:47 Body Mass Index 47.35 (149.69 kg, 177.80 cm) ll1 MDM: 14:47 Patient medically screened. [facility] 18:28 Data reviewed: vital signs, nurses notes. Counseling: I had a detailed discussion with ligia the patient and/or guardian regarding: the historical points, exam findings, and any diagnostic results supporting the discharge/admit diagnosis, lab results, radiology results, the need for further work-up and treatment in the hospital. ED course: I discussed the patient with Yariel Johnson whom accepted the patient to Dr. Newby service. . 10/25 14:49 Order name: Basic Metabolic Panel; Complete Time: 16:45 [facility] 10/25 14:49 Order name: CBC with Diff; Complete Time: 16:12 [facility] 10/25 14:49 Order name: LFT's; Complete Time: 16:45 [facility] 10/25 14:49 Order name: Magnesium; Complete Time: 16:45 [facility] 10/25 14:49 Order name: NT PRO-BNP; Complete Time: 16:45 [facility] 10/25 14:49 Order name: PT-INR; Complete Time: 16:12 [facility] 10/25 14:49 Order name: Troponin (emerg Dept Use Only); Complete Time: 16:45 [facility] 10/25 14:49 Order name: D-Dimer [facility] 10/25 17:03 Order name: SARS-COV-2 RT PCR; Complete Time: 17:06 [facility] 10/25 18:05 Order name: D-Dimer; Complete Time: 18:14 [facility] 10/25 22:15 Order name: Troponin I; Complete Time: 22:18 [facility] 10/26 03:22 Order name: CBC with Automated Diff [facility] 10/25 14:49 Order name: XRAY Chest (1 view); Complete Time: 15:28 [facility] 10/25 14:49 Order name: EKG; Complete Time: 14:50 [facility] 10/25 14:49 Order name: Cardiac monitoring; Complete Time: 16:05 [facility] 10/25 14:49 Order name: EKG - Nurse/Tech; Complete Time: 16:05 [facility] 10/25 14:49 Order name: IV Saline Lock; Complete Time: 16:05 [facility] 10/25 14:49 Order name: CT Head Brain wo Cont; Complete Time: 15:28 [facility] 10/26 03:39 Order name: Troponin I [facility] 10/26 03:43 Order name: Basic Metabolic Panel [facility] 10/26 03:43 Order name: Lipid Profile [facility] 10/26 03:43 Order name: T4 Free [facility] 10/26 03:43 Order name: Thyroid Stimulating Hormone [facility] 10/25 14:49 Order name: Labs collected and sent; Complete Time: 16:05 [facility] 10/25 14:49 Order name: O2 Per Protocol; Complete Time: 16:09 [facility] 10/25 14:49 Order name: O2 Sat Monitoring; Complete Time: 16:01 [facility] Administered Medications: 15:00 Drug: Valium (diazepam) 2 mg Route: IVP; Site: right antecubital; bp 17:48 Follow up: Response: No adverse reaction bp 15:00 Drug: Zofran (Ondansetron) 4 mg Route: IVP; Site: left antecubital; bp 17:48 Follow up: Response: No adverse reaction bp 15:00 Drug: NS 0.9% 1000 ml Route: IV; Rate: 1 bolus; Site: right antecubital; bp 10/26 19:43 Follow up: IV Status: Completed infusion; IV Intake: 1000ml em 10/25 17:00 Drug: NS 0.9% 1000 ml Route: IV; Rate: 1 bolus; Site: right antecubital; bp 10/26 19:42 Follow up: IV Status: Completed infusion; IV Intake: 1000ml em 10/25 18:35 Drug: Aspirin Chewable Tablet 324 mg Route: PO; bp 19:07 Follow up: Response: No adverse reaction bp Disposition Summary: 10/25/20 18:31 Hospitalization Ordered Hospitalization Status: Observation [facility] Provider: Bety Prescott Condition: Stable jm Problem: new jmm Symptoms: are unchanged [facility] Bed/Room Type: Standard [facility] Location: Telemetry/MedSurg (observation)(10/26/20 18:42) bd Room Assignment: 208(10/26/20 18:42) bd Diagnosis - Chest pain, unspecified jmm - Dizziness and giddiness [facility] Forms: - Medication Reconciliation Form [facility] - SBAR form [facility] Addendum: 11/02/2020 07:05 Co-signature as Attending Physician, Jesse Padilla MD I agree with the assessment and r n plan of care. Attestation: The patient's history, exam findings, diagnostics, and a summary of any interventions or procedures was reviewed in detail with Aly MEJIAS. Signatures: Dispatcher [employer] EDMS Charlotte Jerez Martha, RN RN mw Mickail, Joel, PA PA jm Jesse Padilla MD MD rn Peltier, Brian, RN RN bp Lewis, Lynsay, RN RN ll1 Alexandra Moreno RN RN ld1 Adam Conway RN em Corrections: (The following items were deleted from the chart) 10/25 14:51 14:50 D-Dimer ordered. EDNC EDNC 16:03 14:50 CORONAVIRUS+MR.LAB.BRZ ordered. EDNC EDNC 19:51 18:31 Telemetry/MedSurg (observation) [facility] 19:51 18:31 [facility] 10/26 18:42 10/25 19:51 [facility] ER HOLD [facility] 10/26 18:42 10/25 19:51 ERHOLD- mw bd
[2020-10-25] MEDS ORDERED: ASPIRIN 81 MG CHEWABLE TABLET ONE (18:56)
--- NOTE | 2020-10-25 20:07 | P.HP ---
Certification for Inpatient Patient admitted to: Observation With expected LOS: <2 Midnights Patient will require the following post-hospital care: None Practitioner: I am a practitioner with admitting privileges, knowledge of patient current condition, hospital course, and medical plan of care. Services: Services provided to patient in accordance with Admission requirements found in Title 42 Section 412.3 of the Code of Federal Regulations Patient History Date of Service: 10/25/20 Primary Care Provider: Judson Reason for admission: Chest pain History of Present Illness: This is a 50-year-old male history of high cholesterol, hypertension, sleep apnea that presented to the emergency room today after having chest pain that started around 1300 hrs. this afternoon. Patient stated for the past month he has noticed that he has been more short of breath with normal exertional activities when compared to in the past. Today he had been feeling fine until he started having palpitations that started with light exertion along with dyspnea on exertion and chest tightness that had radiated to the left jaw and down the left arm. Patient was worked up in the emergency room, no EKG changes, first troponin was negative, mild elevation in creatinine but otherwise no other acute findings. Patient's pain right now at most about a 1 he said. Patient stated that he has been compliant with all of his medications including his CPAP at nighttime. Last echocardiogram and chemical stress test was 4 years ago which were both negative at that time. Patient will be admitted for cardiac observation. Allergies Penicillins Allergy (Verified 01/03/16 16:22) Hives Home medications list reviewed: Yes Home Medications: Lisinopril/Hydrochlorothiazide [Lisinopril-Hctz 20-12.5 mg Tab] 1 tab PO DAILY 01/03/16 Venlafaxine HCl [Effexor*] 75 mg PO DAILY 01/03/16 - Past Medical/Surgical History Has patient received pneumonia vaccine in the past: No Diabetic: No -: htn -: sleep apnea -: high cholesterol -: previous chest pain - Family History Father -: Heart disease, Cancer Mother -: Hypertension - Social History Smoking Status: Current some day smoker Alcohol use: Yes CD- Drugs: No Caffeine use: Yes Place of Residence: Home Review of Systems General: Unremarkable Eyes: Unremarkable ENT: Unremarkable Respiratory: Shortness of Breath, SOB with Excertion Cardiovascular: Chest Pain, Palpitations Gastrointestinal: Unremarkable Genitourinary: Unremarkable Musculoskeletal: Unremarkable Integumentary: Unremarkable Neurological: Unremarkable Lymphatics: Unremarkable Physical Examination - Vital Signs Temperature: 97.5 F Blood Pressure: 122/79 Pulse: 80 Respirations: 18 Pulse Ox (%): 96 (Room air) - Physical Exam General: Alert, In no apparent distress, Oriented x3, Cooperative HEENT: Normocephalic, PERRLA, Mucous membr. moist/pink, EOMI Neck: Supple, 2+ carotid pulse no bruit, JVD not distended, No Thyromegaly, No LAD Respiratory: Clear to auscultation bilaterally, Normal air movement Cardiovascular: No edema, Normal pulses, Regular rate/rhythm, Normal S1 S2, No gallops, No rubs, No murmurs Capillary refill: <2 Seconds Gastrointestinal: Normal bowel sounds, Soft and benign, Non-distended, No ascites, No tenderness, No masses, No rebound, No guarding Musculoskeletal: No clubbing, No swelling, No contractures, No erythema, No tenderness, No warmth Integumentary: No rashes, No breakdown, No significant lesion, No tenderness/swelling, No erythema, No warmth, No cyanosis Neurological: Normal speech, Normal strength at 5/5 x4 extr, Normal tone, Sensation intact, Cranial nerves 3-12 intact, Normal affect Lymphatics: No axilla or inguinal lymphadenopathy - Studies Laboratory Data (last 24 hrs) 10/25/20 15:40: PT 11.6, INR 1.01 10/25/20 15:40: WBC 7.40, Hgb 14.3, Hct 43.0, Plt Count 205 10/25/20 15:40: Sodium 140, Potassium 3.6, BUN 22 H, Creatinine 1.31 H, Glucose 104, Magnesium 2.4, Total Bilirubin 0.6, AST 24, ALT 60, Alkaline Phosphatase 99 Assessment and Plan - Problems (Diagnosis) (1) Hyperlipidemia Current Visit: Yes Status: Chronic Qualifiers: Hyperlipidemia type: moderate mixed hyperlipidemia not requiring statin therapy Qualified Code(s): E78.2 - Mixed hyperlipidemia (2) Sleep apnea Current Visit: Yes Status: Chronic Qualifiers: Sleep apnea type: obstructive Qualified Code(s): G47.33 - Obstructive sleep apnea (adult) (pediatric) (3) Chest pain Onset Date: 01/04/16 Current Visit: No Status: Acute Qualifiers: Chest pain type: unspecified Qualified Code(s): R07.9 - Chest pain, unspecified (4) Hypertension Onset Date: 01/04/16 Current Visit: No Status: Chronic Qualifiers: Hypertension type: primary hypertension Qualified Code(s): I10 - Essential (primary) hypertension - Plan 1. Patient will be monitored over the next 24 hours for new onset chest pain 2. Cardiology has been consulted for further evaluation for his chest pain 3. Serial troponins will be ran 4. Patient's vital signs will be taken per protocol 5. Oxygen per protocol 6. Patient given antiemetics and pain medicine as needed 7. Basic labs to be drawn in the morning including cholesterol panel, TSH, T4 8. EKGs as needed 9. Will await further consultation from cardiology. It is assumed that if everything comes back okay patient will go home in the next 24 hours or less. Discharge Plan: Home Plan to discharge in: 24 Hours - Advance Directives Does patient have a Living Will: No Does patient have a Durable POA for Healthcare: No - Code Status/Comfort Care Code Status Assessed: Yes Code Status: Full Code Critical Care: No Time Spent Managing Pts Care (In Minutes): 70
[2020-10-25] MEDS ORDERED: MORPHINE 4 MG/ML SYR IV PRN (21:19)
[2020-10-25] MEDS ORDERED: ONDANSETRON 4 MG/2 ML VIAL IV PRN (21:19)
[2020-10-25] MEDS ORDERED: ACETAMINOPHEN 500 MG TAB PO PRN (21:19)
[2020-10-26 03:20] LABS: Absolute Lymphocytes (CBC) 2.6 K/uL (0.7-4.9); Basophils % 1.1 % (0-1.3); Hematocrit 40.8 % (39.6-49.0); Lymphocytes % 32.6 % (15.3-44.8); MPV 8.7 fL (7.6-11.3); RBC Red Blood Cell Count 4.92 M/uL (4.33-5.43)
[2020-10-26 03:43] LABS: Potassium 4.1 mmol/L (3.5-5.1); Thyroid Stimulating Hormone 1.98 uIU/mL (0.360-3.740)
[2020-10-26] MEDS ORDERED: ASPIRIN EC 81 MG TAB PO ONE (08:45)
[2020-10-26] MEDS ORDERED: lisinopriL 5 MG TAB ONE (08:45)
[2020-10-26] MEDS: ASPIRIN EC 81 MG TAB PO SCH (09:00)
[2020-10-26] MEDS ORDERED: lisinopriL 5 MG TAB PO SCH (09:00)
[2020-10-26] MEDS: FLUOXETINE 20 MG CAP PO SCH (09:00)
--- NOTE | 2020-10-26 09:05 | EKG ---
Test Date: 2020-10-25 Test Time: 15:38:45 Program Control Analyst: BP MEASUREMENT RESULTS: Intervals: Rate: 78 MS: 162 QRSD: 90 QT: 378 QTc: 430 [place]: P: 38 MS: 162 QRS: 18 T: 41 INTERPRETIVE STATEMENTS: Normal sinus rhythm Normal ECG Compared to ECG 11/10/2019 22:10:10 Left ventricular hypertrophy no longer present Electronically Signed On 10-26-20 09:04:01 CDT by Zachary Martin
--- NOTE | 2020-10-26 16:35 | P.PN ---
Subjective Date of Service: 10/26/20 Primary Care Provider: Judson Chief Complaint: Chest pain Subjective: Improving, Doing well (Chest pain improved.) Physical Examination - Vital Signs Temperature: 98.7 F Blood Pressure: 171/94 Pulse: 75 Respirations: 15 Pulse Ox (%): 98 - Studies Laboratory Data (last 24 hrs) 10/25/20 15:40: Sodium 140, Potassium 3.6, BUN 22 H, Creatinine 1.31 H, Glucose 104, Magnesium 2.4, Total Bilirubin 0.6, AST 24, ALT 60, Alkaline Phosphatase 99 Assessment & Plan Discharge Plan: Home Plan to discharge in: 24 Hours Physician Review Additional Text: CT Head: FINDINGS: No intracranial hemorrhage, hydrocephalus or extra-axial fluid collection.No areas of brain edema or evidence of midline shift. The paranasal sinuses and mastoids are clear. The calvarium is intact. IMPRESSION: No acute intracranial abnormality. CXR: COMPARISON: Chest Single View dated 11/10/2019; Chest Single View dated ; Chest Single View dated 01/03/2016 FINDINGS: Portable technique limits examination quality. The lungs are grossly clear. The heart is normal in size. No displaced fractures. IMPRESSION: No acute intrathoracic process suspected. Physical exam: General: Alert, In no apparent distress, Oriented x3, Cooperative HEENT: Normocephalic, PERRLA, Mucous membr. moist/pink, EOMI Neck: Supple, 2+ carotid pulse no bruit, JVD not distended, No Thyromegaly, No LAD Respiratory: Clear to auscultation bilaterally, Normal air movement Cardiovascular: No edema, Normal pulses, Regular rate/rhythm, Normal S1 S2, No gallops, No rubs, No murmurs Capillary refill: <2 Seconds Gastrointestinal: Normal bowel sounds, Soft and benign, Non-distended, No ascites, No tenderness, No masses, No rebound, No guarding Musculoskeletal: No clubbing, No swelling, No contractures, No erythema, No tenderness, No warmth Integumentary: No rashes, No breakdown, No significant lesion, No tenderness/swelling, No erythema, No warmth, No cyanosis Neurological: Normal speech, Normal strength at 5/5 x4 extr, Normal tone, Sensation intact, Cranial nerves 3-12 intact, Normal affect Lymphatics: No axilla or inguinal lymphadenopathy Impression: Chest pain suspect unstable angina Hypertension Hyperlipidemia Obstructive sleep apnea Depression BPH Plan: Chest pain suspect unstable angina: Patient seen and evaluated by cardiology. Cardiology recommends heart catheterization to further evaluate.. This will be done tomorrow. Keep n.p.o. after midnight. Await findings. Continue aspirin, Lipitor, fish oil, lisinopril and Lovenox. Hypertension: Restart lisinopril. Will monitor and adjust appropriately. Hyperlipidemia: Will provide medicationLipitor and fish oil. Obstructive sleep apnea: Continue with CPAP at night. Depression: Continue with Prozac. BPH: Continue Flomax DVT prophylaxis: Lovenox CODE STATUS: Full code Advance care [id number] minutes: Home at discharge Time Spent Managing Pts Care (In Minutes): 55
[2020-10-26] MEDS: lisinopriL 10 MG TAB PO SCH (20:32)
[2020-10-26] MEDS: DOCOSAHEXANOIC AC/EPA 1000 MG PO SCH (20:32)
[2020-10-26] MEDS ORDERED: TAMSULOSIN 0.4 MG SR CAP PO SCH (21:00)
[2020-10-26] MEDS ORDERED: ATORVASTATIN 40 MG TAB PO SCH (21:00)
[2020-10-26 21:41] VITALS: BMI 47.7
--- NOTE | 2020-10-27 06:02 | P.PN ---
Subjective Date of Service: 10/27/20 Primary Care Provider: Judson Chief Complaint: Chest pain Subjective: Improving, Doing well Physical Examination - Vital Signs Temperature: 97.6 F Blood Pressure: 101/54 Pulse: 65 Respirations: 16 Pulse Ox (%): 96 - Physical Exam General: Alert, In no apparent distress, Oriented x3, Cooperative HEENT: Atraumatic Neck: Supple Respiratory: Clear to auscultation bilaterally, Normal air movement Cardiovascular: Normal pulses, Regular rate/rhythm Gastrointestinal: Normal bowel sounds, No tenderness, No masses, No rebound, No guarding Musculoskeletal: No erythema, No tenderness, No warmth Integumentary: No tenderness/swelling Neurological: Normal speech, Normal strength at 5/5 x4 extr, Normal tone, Normal affect - Studies Medications List Reviewed: Yes Assessment & Plan Discharge Plan: Home Plan to discharge in: 24 Hours Physician Review Additional Text: CT Head: FINDINGS: No intracranial hemorrhage, hydrocephalus or extra-axial fluid collection.No areas of brain edema or evidence of midline shift. The paranasal sinuses and mastoids are clear. The calvarium is intact. IMPRESSION: No acute intracranial abnormality. CXR: COMPARISON: Chest Single View dated 11/10/2019; Chest Single View dated 01/04/2016; Chest Single View dated 01/03/2016 FINDINGS: Portable technique limits examination quality. The lungs are grossly clear. The heart is normal in size. No displaced fractures. IMPRESSION: No acute intrathoracic process suspected. Physical exam: General: Alert, In no apparent distress, Oriented x3, Cooperative HEENT: Normocephalic, PERRLA, Mucous membr. moist/pink, EOMI Neck: Supple, 2+ carotid pulse no bruit, JVD not distended, No Thyromegaly, No LAD Respiratory: Clear to auscultation bilaterally, Normal air movement Cardiovascular: No edema, Normal pulses, Regular rate/rhythm, Normal S1 S2, No gallops, No rubs, No murmurs Capillary refill: <2 Seconds Gastrointestinal: Normal bowel sounds, Soft and benign, Non-distended, No ascites, No tenderness, No masses, No rebound, No guarding Musculoskeletal: No clubbing, No swelling, No contractures, No erythema, No tenderness, No warmth Integumentary: No rashes, No breakdown, No significant lesion, No tenderness/swelling, No erythema, No warmth, No cyanosis Neurological: Normal speech, Normal strength at 5/5 x4 extr, Normal tone, Sensation intact, Cranial nerves 3-12 intact, Normal affect Lymphatics: No axilla or inguinal lymphadenopathy Impression: Chest pain suspect unstable angina Hypertension Hyperlipidemia Obstructive sleep apnea Depression BPH Plan: Chest pain suspect unstable angina: Patient to have heart catheterization today. Will monitor closely. Hypertension: Continue lisinopril. Will monitor and adjust appropriately. Hyperlipidemia: Will provide medicationLipitor and fish oil. Obstructive sleep apnea: Continue with CPAP at night. Depression: Continue with Prozac. BPH: Continue Flomax DVT prophylaxis: Lovenox CODE STATUS: Full code Advance care [id number] minutes: Home at discharge Time Spent Managing Pts Care (In Minutes): 55
[2020-10-27] MEDS ORDERED: HEPA 1000U/500MLS 1,000 UNIT/500 ML BAG IV ONE (07:07)
[2020-10-27] MEDS ORDERED: FENTANYL CITR 100 MCG/2 ML ONE (07:10)
[2020-10-27] MEDS ORDERED: MIDAZOLAM HCL 2 MG/2 ML INJ ONE ×2 (07:10→07:46)
[2020-10-27] MEDS ORDERED: NA CHLORIDE 0.9% 0 ML ONE (07:11)
[2020-10-27] MEDS ORDERED: ATROPINE SULF 1 MG/10 ML SYR IV ONE (07:11)
[2020-10-27] MEDS ORDERED: NA CHLORIDE 0.9% 1,000 ML ONE (07:24)
[2020-10-27 08:24] VITALS: O2SAT 98
--- NOTE | 2020-10-27 08:51 | OP ---
Date of Procedure: 10/27/2020 Surgeon: Zachary Martin MD Forest Manager: Mr. Oren Boland. Procedure Performed: Admitted to Dr. Barnett and Dr. Prescott on 10/25/2020 with unstable angina. The pa tient was seen on 10/26/2020. A heart catheterization was planned for today on 10/27/2020 as an inpa tient. Procedure In Detail: He was brought to the lab engineer, prepped and draped in routine sterile fashion. Given Versed and fentanyl for sedation. A 6-Portuguese sheath introduced in the right common femoral ar chelsie successfully. Angio-Seal was used to close the case. Angiography there was normal. Naomie ca theter left and right were used to do the heart catheterization. The patient was found to have felix l coronaries, right dominant system. There were no complications. Blood loss was 5 mL. Postoperative Diagnoses: Unstable angina, normal coronaries, history of obesity, hypertension, diabe anu, and dyslipidemia. Plan: To continue medical therapy. The patient can go home today in 2 hours after bedrest. Anesthesia: Total conscious sedation 45 minutes. NB/MODL Voice ID: [id number] Report ID: [id number]
[2020-10-27] MEDS: lisinopriL 10 MG TAB PO SCH (09:51)
[2020-10-27] MEDS: FLUOXETINE 20 MG CAP PO SCH (09:52)
[2020-10-27] MEDS: DOCOSAHEXANOIC AC/EPA 1000 MG PO SCH (09:53)
[2020-10-27] MEDS: ASPIRIN EC 81 MG TAB PO SCH (09:53)
[2020-10-27 10:29] VITALS: TEMP 97.6
--- NOTE | 2020-10-27 10:33 | P.DS ---
Admission Date: 10/25/20 Discharge Date: 10/27/20 Primary Care Provider: Simi Roper NP Disposition: ROUTINE DISCHARGE Discharge Condition: GOOD Reason for Admission: Chest pain Consultations: Cardiology-Dr. Martin Procedures: CT Head: FINDINGS: No intracranial hemorrhage, hydrocephalus or extra-axial fluid collection.No areas of brain edema or evidence of midline shift. The paranasal sinuses and mastoids are clear. The calvarium is intact. IMPRESSION: No acute intracranial abnormality. CXR: COMPARISON: Chest Single View dated 11/10/2019; Chest Single View dated 01/04/2016; Chest Single View dated 01/03/2016 FINDINGS: Portable technique limits examination quality. The lungs are grossly clear. The heart is normal in size. No displaced fractures. IMPRESSION: No acute intrathoracic process suspected. Heart catheterization: Unremarkable. Normal coronaries noted Medical problem list: Chest pain, status post heart catheterization showing normal coronaries Hypertension Hyperlipidemia Obstructive sleep apnea Depression BPH Brief History of Present Illness: 50-year-old male with history of hypertension, hyperlipidemia, sleep apnea. Patient presented with chest pain. Patient also reported some palpi tation. Patient was admitted for further evaluation. Hospital Course: Patient presented with chest pain. Patient with underlying history of hypertension, hyperlipidemia, obstructive sleep apnea, depression and BPH. Patient was seen and evaluated by cardiology. Cardiology recommended heart catheterization to further evaluate. Heart catheterization performed showed n ormal coronaries. Medications have been adjusted during the course of his stay. At discharge the patient will continue with lisinopril 10 mg 1 pill twice daily for hypertension. The patient will also continue with fish oil 1000 mg 1 pill twice daily for hyperlipidemia. Recommend follow-up with cardiology in 2 to 4 weeks. Recommend follow-up with PCP in 1 week to follow-up his hospitalization. Patient with hypertension. Medications have been adjusted during the course of his stay. Patient will no longer take lisinopril hydrochlorothiazide. Patient will continue with lisinopril 10 mg 1 pill twice daily. Recommend to maintain blood pressure less than 130/80. Further adjustment can be done by his PCP. Patient with hyperlipidemia. Patient was started on fish oil 1000 mg 1 pill twice daily due to elevated triglyceride level. Recommend to recheck fasting lipid panel in 4 to 6 weeks to monitor his progress. Further adjustment can be done by his PCP. Patient with obstructive sleep apnea. Patient will continue with CPAP at night. Patient with depression. At discharge patient will continue with Prozac 40 mg daily. Patient with BPH. At discharge patient will continue with Flomax 0.4 mg daily. Vital Signs/Physical Exam: Temp Pulse Resp BP Pulse Ox 97.6 F 65 16 101/54 L 96 10/27/20 10:28 10/27/20 10:28 10/27/20 10:28 10/27/20 10:28 10/27/20 10:28 General: Alert, In no apparent distress, Oriented x3, Cooperative HEENT: Atraumatic Neck: Supple Respiratory: Clear to auscultation bilaterally, Normal air movement Cardiovascular: Normal pulses, Regular rate/rhythm Gastrointestinal: Normal bowel sounds, Non-distended, No tenderness, No masses, No rebound, No guarding Musculoskeletal: No erythema, No tenderness, No warmth Integumentary: No tenderness/swelling Neurological: Normal speech, Normal strength at 5/5 x4 extr, Normal tone, Normal affect Laboratory Data at Discharge: WBC 8.00 K/uL (4.3-10.9) 10/26/20 02:31 Hgb 13.9 g/dL (13.6-17.9) 10/26/20 02:31 Hct 40.8 % (39.6-49.0) 10/26/20 02:31 Plt Count 188 K/uL (152-406) 10/26/20 02:31 PT 11.6 SECONDS (9.5-12.5) 10/25/20 15:40 INR 1.01 10/25/20 15:40 Sodium 140 mmol/L (136-145) 10/26/20 02:31 Potassium 4.1 mmol/L (3.5-5.1) 10/26/20 02:31 BUN 21 mg/dL (7-18) H 10/26/20 02:31 Creatinine 1.08 mg/dL (0.55-1.3) 10/26/20 02:31 Glucose 98 mg/dL (74-106) 10/26/20 02:31 Magnesium 2.4 mg/dL (1.8-2.4) 10/25/20 15:40 Total Bilirubin 0.6 mg/dL (0.2-1.0) 10/25/20 15:40 AST 24 U/L (15-37) 10/25/20 15:40 ALT 60 U/L (12-78) 10/25/20 15:40 Alkaline Phosphatase 99 U/L (45-117) 10/25/20 15:40 Troponin I < 0.02 ng/mL (0.0-0.045) 10/26/20 02:31 Triglycerides 324 mg/dL (<150) H 10/26/20 02:31 Cholesterol 194 mg/dL (<200) 10/26/20 02:31 HDL Cholesterol 28 mg/dL (40-60) L 10/26/20 02:31 Cholesterol/HDL Ratio 6.93 10/26/20 02:31 Home Medications: Fluoxetine HCl [Prozac] 40 mg PO DAILY 10/26/20 Tamsulosin HCl [Flomax] 1 tab PO BEDTIME 10/26/20 clomiPHENE citrate [Clomiphene Citrate] 0.5 tab PO DAILY 10/26/20 Docosahexanoic AC/Epa [Fish Oil 1,000 MG*] 1,000 mg PO BID #60 cap 10/27/20 lisinopriL [Prinivil*] 10 mg PO BID #60 tab 10/27/20 New Medications: Docosahexanoic AC/Epa [Fish Oil 1,000 MG*] 1,000 mg PO BID #60 cap lisinopriL [Prinivil*] 10 mg PO BID #60 tab Physician Discharge Instructions: Patient presented with chest pain. Patient with underlying history of hypertension, hyperlipidemia, obstructive sleep apnea, depression and BPH. Patient was seen and evaluated by cardiology. Cardiology recommended heart catheterization to further evaluate. Heart catheterization performed showed normal coronaries. Medications have been adjusted during the course of his stay. At discharge the patient will continue with lisinopril 10 mg 1 pill twice daily for hypertension. The patient will also continue with fish oil 1000 mg 1 pill twice daily for hyperlipidemia. Recommend follow-up with cardiology in 2 to 4 weeks. Recommend follow-up with PCP in 1 week to follow-up his hospitalization. Patient with hypertension. Medications have been adjusted during the course of his stay. Patient will no longer take lisinopril hydrochlorothiazide. Patient will continue with lisinopril 10 mg 1 pill twice daily. Recommend to maintain blood pressure less than 130/80. Further adjustment can be done by his PCP. Patient with hyperlipidemia. Patient was started on fish oil 1000 mg 1 pill twice daily due to elevated triglyceride level. Recommend to recheck fasting lipid panel in 4 to 6 weeks to monitor his progress. Further adjustment can be done by his PCP. Patient with obstructive sleep apnea. Patient will continue with CPAP at night. Patient with depression. At discharge patient will continue with Prozac 40 mg daily. Patient with BPH. At discharge patient will continue with Flomax 0.4 mg daily. Diet: AHA Activity: Ad huang Followup: Zachary Martin MD [ACTIVE - CAN ADMIT] - (Follow up in office in 2 weeks. Call to schedule an appointment.) Lenore Roper NP [Primary Care Provider] - Time spent managing pt's care (in minutes): 55
[2020-10-27 12:07] VITALS: BP 124/84
--- NOTE | 2020-10-29 11:27 | CON ---
Date of Consultation: 10/26/2020 Additional Admitting Physician: Kaiden Barnett DO. Reason For Consultation: Chest pain. History Of Present Illness: Mr. Devries is a 50-year-old male with history of obesity, sleep apnea, hy pertension, dyslipidemia. Came in with substernal chest pressure radiating to both arms with diaphor esis and shortness of breath and nausea without exertion. Symptoms would last anywhere from 30 minut es to an hour and half. Denied PND, orthopnea, pedal edema, fever, chills, palpitations, or syncope. He has already ruled out for an RI. Past Medical History: As stated above. Allergies: PENICILLIN. Review of Systems: Negative. Social History: Negative. Family History: Positive for heart disease. Medications: At home include Effexor, lisinopril with hydrochlorothiazide. Physical Examination: Vital Signs: He weighed 320 pounds. HEENT: Negative. Neck: Supple with no bruit. Chest: Clear to auscultation and percussion. Cardiac: Revealed a regular rhythm and rate. No murmurs, gallops, or rubs. Abdomen: Benign. Extremities: Revealed no clubbing, cyanosis, or edema. Diagnostic Data: All within normal limit. Impression And Plan: 1.Unstable angina. 2.Hypertension. 3.Dyslipidemia. 4.Obesity. 5.Sleep apnea. 6.Depression. I am not very comfortable having Mr. Devries do a stress test because of his size and t he high chance of this being a false positive or false negative. I think his symptoms are very worri some. He has many risk factors for heart disease including hypertension, dyslipidemia, obesity, and family history. I suggested a left heart catheterization to define his coronary anatomy. He underst ands the risk and the benefits of the procedure and he agrees to proceed. We will see what that show s before making further decisions. CHARLIE/KASSIE Voice ID: [id number] Report ID: [id number]
== END 2020-10-27 11:40 | disposition home or self-care (01) ==
LOC: ER 14:23 → ERHOLD 18:37 → 2ND 10-26 19:25
PROVIDERS: ADMIT Hospitalist; ATTEND Family Medicine
DX: R07.9 Chest pain, unspecified (principal); I10 Essential (primary) hypertension; G47.33 Obstructive sleep apnea (adult) (pediatric); E78.2 Mixed hyperlipidemia; N40.0 Benign prostatic hyperplasia without lower urinary tract symptoms; F32.9 Major depressive disorder, single episode, unspecified; E78.00 Pure hypercholesterolemia, unspecified; R42 Dizziness and giddiness; F17.210 Nicotine dependence, cigarettes, uncomplicated; E66.9 Obesity, unspecified; Z68.42 Body mass index [BMI] 45.0-49.9, adult; Z20.822 Contact with and (suspected) exposure to COVID-19; Z88.0 Allergy status to penicillin; Z82.49 Family history of ischemic heart disease and other diseases of the circulatory system; Z80.9 Family history of malignant neoplasm, unspecified
CPT/HCPCS: 93005 ×2; 85025 ×2; 80048 ×2; 36415; 83735; 85610; 80061; 85379; 80076; 84443; 84484 ×3; 84439; 83880; 70450; 71045; 93454; 94660; 99285; U0003; C1893; C1760; J2250; J3360; J3010; G0378 ×5; J7030 ×4; J1644; J2405; J0583

== ENCOUNTER 2022-01-18 13:18 | Emergency (ER) | payer SELFPAY ==
--- OUTSIDE RECORDS SUMMARY | 2022-01-18 13:24 | XMS REPORT | Continuity of Care Document ---
:1970 Author Organization [facility] t Address [address] [place] [address] Care Team Providers Name Role Phone Lenore Roper Attending Clinician Unavailable Meron Jaquez Attending Clinician Unavailable Payers Payer Name Policy Type Policy Number Effective Date Expiration Date S [place] [employer] 6 [id number] 2019 Common Spiri t [employer] of 00:00:00 - [facility] Problems Condition Condition Condition Status Onset Resolution Last Treating Co mments Source Name Details Category Date Date Treatment Clinician Date Arthralgia Pain in Problem Active Comm on of the right knee Spirit lower leg [facility] [id number] ED Problem Active Common (erectile Spirit dysfunctio - [facility] n[facility] of [facility] Low back Low back Problem Active Commo n pain pain Spirit [facility] [id number] Essential Problem Active Comm on hypertensi Spirit on [facility] [id number] Hyperchole Problem Active Com mon sterolemia Spirit [facility] [id number] Depression Problem Active Co mmon with Spirit anxiety [facility] [id number] Back Problem Active Common muscle Spirit spasm [facility] [id number] Low Problem Active Common testostero Spirit ne in male - [facility] [id number] Urethritis Problem Active Com mon Spirit [facility] Chronic Other Problem Active Common pain chronic [facility] pain [facility] [id number] Arthritis Problem Active Co mmon [id number] of knee, [facility] right [facility] Kidney Kidney Problem Active Common stone stones [facility] [id number] Other Problem Active Commo n [id number] stricture [facility] [id number] BPH loc w Problem Active Com [facility] urin Spirit obs/LUTS [facility] [id number] Hypogonadi Problem Active Com mon sm male [facility] Allergies, Adverse Reactions, Alerts Allergy Allergy Status Severity Reaction(s) Onset Inactive Treating Comm ents Source Name Type Date Date Clinician 0 Drug Active hives Common allergy [facility] Social History Social Habit Start Date Stop Date Quantity Comments Source History of Tobacco Current Smoker Co mmon [facility] - Use [facility] Medic al [place] Sex Assigned At Com [facility] Smoking Status Start Date Stop Date Source Current Smoker 2021-09-10 00:00:00 Common Spiri t - [facility] Medications Ordered Filled Start Stop Current Ordering Indication Dosage Frequency Signature Comments Components Source Medication Medication Date Date Medication? Clinician (SIG) Name Name Niki Anguiano Cialis 20 2020-03- No 1{table Cialis 20 MG MG 03-30 t} MG 00:00: 00:00 00 :00 Cialis 20 Gelylis 20 2020-03- No 1{table Cialis 20 MG MG 03-30 t} MG 00:00: 00:00 00 :00 Viagra 100 Viagra 100 2020-03- No QD Viagra 100 MG MG 0-14 05-12 MG 00:00: 00:00 00 :00 Viagra 100 Viagra 100 2020-03- No QD Viagra 100 MG MG 0-14 05-12 MG 00:00: 00:00 00 :00 Viagra 100 Viagra 100 2020-03- No QD Viagra 100 MG MG 0-14 05-12 MG 00:00: 00:00 00 :00 Viagra 100 Viagra 100 2020-03- No QD Viagra 100 MG MG 0-14 05-12 MG 00:00: 00:00 00 :00 clomiPHENE clomiPHENE 2020-0 No QD clomiPHENE Citrate 50 Citrate 50 7-15 Citrate 50 MG MG 00:00: MG 00 clomiPHENE clomiPHENE 0 No QD clomiPHENE Citrate 50 Citrate 50 7-15 Citrate 50 MG MG 00:00: MG 00 clomiPHENE clomiPHENE 2020-0 No QD clomiPHENE Citrate 50 Citrate 50 7-15 Citrate 50 MG MG 00:00: MG 00 clomiPHENE clomiPHENE 0 No QD clomiPHENE Citrate 50 Citrate 50 7-15 Citrate 50 MG MG 00:00: MG 00 clomiPHENE clomiPHENE 0 No QD clomiPHENE Citrate 50 Citrate 50 7-15 Citrate 50 MG MG 00:00: MG 00 clomiPHENE clomiPHENE 0 No QD clomiPHENE Citrate 50 Citrate 50 7-15 Citrate 50 MG MG 00:00: MG 00 clomiPHENE clomiPHENE 0 No QD clomiPHENE Citrate 50 Citrate 50 7-15 Citrate 50 MG MG 00:00: MG 00 clomiPHENE clomiPHENE 2020-0 No QD clomiPHENE Citrate 50 Citrate 50 7-15 Citrate 50 MG MG 00:00: MG 00 Flomax 0.4 Flomax 0.4 2021- No 1{capsu QD Flomax 0.4 MG MG -15 01-02 le} MG 00:00: 00:00 00 :00 Flomax 0.4 Flomax 0.4 2021- No 1{capsu QD Flomax 0.4 MG MG 7-15 01-02 le} MG 00:00: 00:00 00 :00 Flomax 0.4 Flomax 0.4 2021- No 1{capsu QD Flomax 0.4 MG MG 7-15 01-02 le} MG 00:00: 00:00 00 :00 Flomax 0.4 Flomax 0.4 2021- No 1{capsu QD Flomax 0.4 MG MG -15 01-02 le} MG 00:00: 00:00 00 :00 Flomax 0.4 Flomax 0.4 2020-0 2021- No 1{capsu QD Flomax 0.4 MG MG 10-08 le} MG 00:00: 00:00 00 :00 Flomax 0.4 Flomax 0.4 2020-0 2- No 1{capsu QD Flomax 0.4 MG MG -05-05 le} MG 00:00: 00:00 00 :00 Flomax 0.4 Flomax 0.4 2020-0 2- No 1{capsu QD Flomax 0.4 MG MG 10-08 le} MG 00:00: 00:00 00 :00 Flomax 0.4 Flomax 0.4 2020-0 2021- No 1{capsu QD Flomax 0.4 MG MG 10-08 le} MG 00:00: 00:00 00 :00 Bupivicaine Bupivicaine 2020-0 No 2.5mg Common Barnett Barnett 5-04 Spirit 00:00: - [facility]I 00 [facility] Kenalog Kenalog 2020-0 No 40mg Common (Triamcinol (Triamcinol 5-04 S pirit one) one) 00:00: - CHI 00 [facility] Methocarbam Methocarbam No QID Methocarba ol 750 MG ol 750 MG mol 750 MG Testosteron Testosteron No 1{ml} Testostero e Cypionate e Cypionate ne 200 MG/ML 200 MG/ML Cypionate 200 MG/ML Methocarbam Methocarbam No QID Methocarba ol 750 MG ol 750 MG mol 750 MG Lisinopril Lisinopril No Lisinopril 10 MG 10 MG 10 MG Celecoxib Celecoxib No 1{capsu BID Celecoxib 100 MG 100 MG le_with 100 MG _food} Fish Oil Fish Oil No 1{capsu BID Fish Oil 1000 MG 1000 MG le} 1000 MG FLUoxetine FLUoxetine No 1{capsu QD FLUoxetine HCl 40 MG HCl 40 MG le} HCl 40 MG Testosteron Testosteron No 1{ml} Testostero e Cypionate e Cypionate ne 200 MG/ML 200 MG/ML Cypionate 200 MG/ML FLUoxetine FLUoxetine No 1{capsu QD FLUoxetine HCl 40 MG HCl 40 MG le} HCl 40 MG Celecoxib Celecoxib No 1{capsu BID Celecoxib 100 MG 100 MG le_with 100 MG _food} Testosteron Testosteron No 1{ml} Testostero e Cypionate e Cypionate ne 200 MG/ML 200 MG/ML Cypionate 200 MG/ML Fish Oil Fish Oil No 1{capsu BID Fish Oil 1000 MG 1000 MG le} 1000 MG Methocarbam Methocarbam No QID Methocarba ol 750 MG ol 750 MG mol 750 MG Lisinopril Lisinopril No QD Lisinopril 10 MG 10 MG 10 MG Fish Oil Fish Oil No 1{capsu BID Fish Oil 1000 MG 1000 MG le} 1000 MG Methocarbam Methocarbam No QID Methocarba ol 750 MG ol 750 MG mol 750 MG Lisinopril Lisinopril No 1{table BID Lisinopril 20 MG 20 MG t} 20 MG FLUoxetine FLUoxetine No 1{capsu QD FLUoxetine HCl 40 MG HCl 40 MG le} HCl 40 MG Fish Oil Fish Oil No 1{capsu BID Fish Oil 1000 MG 1000 MG le} 1000 MG Methocarbam Methocarbam No QID Methocarba ol 750 MG ol 750 MG mol 750 MG Lisinopril Lisinopril No 1{table BID Lisinopril 20 MG 20 MG t} 20 MG FLUoxetine FLUoxetine No 1{capsu QD FLUoxetine HCl 40 MG HCl 40 MG le} HCl 40 MG FLUoxetine FLUoxetine No 1{capsu QD FLUoxetine HCl 40 MG HCl 40 MG le} HCl 40 MG Fish Oil Fish Oil No 1{capsu BID Fish Oil 1000 MG 1000 MG le} 1000 MG Methocarbam Methocarbam No QID Methocarba ol 750 MG ol 750 MG mol 750 MG Lisinopril Lisinopril No 1{table BID Lisinopril 20 MG 20 MG t} 20 MG FLUoxetine FLUoxetine No 1{capsu QD FLUoxetine HCl 40 MG HCl 40 MG le} HCl 40 MG Fish Oil Fish Oil No 1{capsu BID Fish Oil 1000 MG 1000 MG le} 1000 MG Methocarbam Methocarbam No QID Methocarba ol 750 MG ol 750 MG mol 750 MG Lisinopril Lisinopril No 1{table BID Lisinopril 20 MG 20 MG t} 20 MG FLUoxetine FLUoxetine No 1{capsu QD FLUoxetine HCl 40 MG HCl 40 MG le} HCl 40 MG Fish Oil Fish Oil No 1{capsu BID Fish Oil 1000 MG 1000 MG le} 1000 MG Lisinopril Lisinopril No 1{table BID Lisinopril 20 MG 20 MG t} 20 MG Lisinopril- Lisinopril- No QD Lisinopril hydroCHLORO hydroCHLORO -hydroCHLO thiazide thiazide ROthiazide 20-12.5 MG 20-12.5 MG 20-12.5 MG FLUoxetine FLUoxetine No 1{capsu QD FLUoxetine HCl 40 MG HCl 40 MG le} HCl 40 MG Methocarbam Methocarbam No QID Methocarba ol 750 MG ol 750 MG mol 750 MG Celecoxib Celecoxib No 1{capsu BID Celecoxib 100 MG 100 MG le_with 100 MG _food} Testosteron Testosteron No 1{ml} Testostero e Cypionate e Cypionate ne 200 MG/ML 200 MG/ML Cypionate 200 MG/ML Celecoxib Celecoxib No 1{capsu BID Celecoxib 100 MG 100 MG le_with 100 MG _food} Lisinopril- Lisinopril- No QD Lisinopril hydroCHLORO hydroCHLORO -hydroCHLO thiazide thiazide ROthiazide 20-12.5 MG 20-12.5 MG 20-12.5 MG FLUoxetine FLUoxetine No 1{capsu QD FLUoxetine HCl 40 MG HCl 40 MG le} HCl 40 MG Methocarbam Methocarbam 2021- No BID Methocarba ol 750 MG ol 750 MG 10-15 mol 750 MG 00:00 :00 Immunizations Ordered Immunization Filled Immunization Date Status Commen ts Source Name Name Bupivicaine Barnett Bupivicaine Barnett 2020-07-28 Completed Common Spirit 15:28:00 - [facility] Kenalog Kenalog 2020-07-28 Completed Common Spirit (Triamcinolone) (Triamcinolone) 15:28:00 - [facility] Bupivicaine Barnett Bupivicaine Barnett 2020-07-28 Completed Common [facility] 15:28:00 - [facility] Kenalog Kenalog 2020-07-28 Completed Common [facility] (Triamcinolone) (Triamcinolone) 15:28:00 - [facility] Bupivicaine Barnett Bupivicaine Barnett 2020-07-28 Completed Common [facility] 15:28:00 - [facility] Kenalog Kenalog 2020-07-28 Completed Common [facility] (Triamcinolone) (Triamcinolone) 15:28:00 [facility] Bupivicaine Barnett Bupivicaine Barnett 2020-07-28 Completed Common Spirit 15:28:00 - [facility] Salomón Kenlavell 2020-07-28 Completed [facility] (Triamcinolone) (Triamcinolone) 15:28:00 - CH I [facility] Bupivicaine Barnett Bupivicaine Barnett 2020-07-28 Completed Common [facility] 15:28:00 - [facility] Kenalog Kenalog 2020-07-28 Completed [facility] (Triamcinolone) (Triamcinolone) 15:28:00 - CH I [facility] Bupivicaine Barnett Bupivicaine Barnett 2020-07-28 Completed Common Spirit 15:28:00 - [facility] Salomón Kenalog 2020-07-28 Completed Common Spirit (Triamcinolone) (Triamcinolone) 15:28:00 - I [facility] Moderna COVID-19 Moderna COVID-19 2020-04-29 Completed Co mmon Spirit Vaccine Vaccine 09:26:00 - [facility] Moderna COVID-19 Moderna COVID-19 2020-04-29 Completed Co mmon Spirit Vaccine Vaccine 09:26:00 - [facility] Moderna COVID-19 Moderna COVID-19 2020-04-29 Completed Co mmon Spirit Vaccine Vaccine 09:26:00 - [facility] Moderna COVID-19 Moderna COVID-19 2020-04-29 Completed Co mmon Spirit Vaccine Vaccine 09:26:00 - [facility] Moderna COVID-19 Moderna COVID-19 2020-04-29 Completed Co mmon Spirit Vaccine Vaccine 09:26:00 - [facility] Moderna COVID-19 Moderna COVID-19 2020-04-29 Completed Co mmon Spirit Vaccine Vaccine 09:26:00 - [facility] Moderna COVID-19 Moderna COVID-19 2020-04-29 Completed Co mmon Spirit Vaccine Vaccine 09:26:00 - [facility] Moderna COVID-19 Moderna COVID-19 2020-04-29 Completed Co mmon Spirit Vaccine Vaccine 09:26:00 - [facility] Moderna COVID-19 Moderna COVID-19 2020-04-29 Completed Co mmon Spirit Vaccine Vaccine 09:26:00 - [facility] Moderna COVID-19 Moderna COVID-19 2020-03-24 Completed Co mmon Spirit Vaccine Vaccine 09:26:00 [facility] Moderna COVID-19 Moderna COVID-19 2020-03-24 Completed Co mmon Spirit Vaccine Vaccine 09:26:00 [facility] Moderna COVID-19 Moderna COVID-19 2020-03-24 Completed Co mmon Spirit Vaccine Vaccine 09:26:00 [facility] Moderna COVID-19 Moderna COVID-19 2020-03-24 Completed Co mmon Spirit Vaccine Vaccine 09:26:00 [facility] Moderna COVID-19 Moderna COVID-19 2020-03-24 Completed Co mmon Spirit Vaccine Vaccine 09:26:00 [facility] Moderna COVID-19 Moderna COVID-19 2020-03-24 Completed Co mmon Spirit Vaccine Vaccine 09:26:00 [facility] Moderna COVID-19 Moderna COVID-19 2020-03-24 Completed Co mmon Spirit Vaccine Vaccine 09:26:00 [facility] Moderna COVID-19 Moderna COVID-19 2020-03-24 Completed Co mmon Spirit Vaccine Vaccine 09:26:00 [facility] Moderna COVID-19 Moderna COVID-19 2020-03-24 Completed Co mmon Spirit Vaccine Vaccine 09:26:00 [facility] Vital Signs Vital Name Observation Time Observation Value Comments Source height 2021-09-10 08:40:00 70.00 [in_i] [facility] weight 2021-09-10 08:40:00 348.8 [lb_av] [facility] temperature 2021-09-10 08:40:00 97.3 [degF] [facility] bmi 2021-09-10 08:40:00 50.04 kg/m2 [facility] oximetry 2021-09-10 08:40:00 94 % Common S pirit - [facility] respiratory rate 2021-09-10 08:40:00 18 /min Comm on [facility] blood pressure 2021-09-10 08:40:00 138 mm[Hg] [facility] Spirit - systolic [facility] blood pressure 2021-09-10 08:40:00 88 mm[Hg] Common Spirit - diastolic [facility] height 2021-01-07 10:00:00 70.00 [in_i] Common S pirit [facility] weight 2021-01-07 10:00:00 332 [lb_av] [facility] temperature 2021-01-07 10:00:00 98.1 [degF] [facility] bmi 2021-01-07 10:00:00 47.63 kg/m2 [facility] oximetry 2021-01-07 10:00:00 96 % Common S pirit [facility] blood pressure 2021-01-07 10:00:00 161 mm[Hg] Common [facility] - systolic [facility] blood pressure 2021-01-07 10:00:00 97 mm[Hg] Common [facility] - diastolic [facility] height 2020-12-29 10:20:00 70.00 [in_i] Common S pirit [facility] weight 2020-12-29 10:20:00 334 [lb_av] Common S pirit [facility] temperature 2020-12-29 10:20:00 97.0 [degF] Common S pirit [facility] bmi 2020-12-29 10:20:00 47.92 kg/m2 Common S pirit [facility] oximetry 2020-12-29 10:20:00 97 % Common S pirit [facility] respiratory rate 2020-12-29 10:20:00 16 /min Comm on [facility] blood pressure 2020-12-29 10:20:00 134 mm[Hg] Common [facility] - systolic [facility] blood pressure 2020-12-29 10:20:00 88 mm[Hg] Common Spirit - diastolic [facility] height 2020-11-11 09:00:00 70.00 [in_i] Common [facility] weight 2020-11-11 09:00:00 339 [lb_av] Common S [facility] temperature 2020-11-11 09:00:00 97.9 [degF] Common S [facility] bmi 2020-11-11 09:00:00 48.64 kg/m2 Common [facility] oximetry 2020-11-11 09:00:00 97 % Common [facility] respiratory rate 2020-11-11 09:00:00 18 /min Comm on [facility] blood pressure 2020-11-11 09:00:00 140 mm[Hg] Common [facility] - systolic [facility] blood pressure 2020-11-11 09:00:00 89 mm[Hg] Common [facility] - diastolic [facility] height 2020-09-25 10:20:00 70.00 [in_i] Common [facility] weight 2020-09-25 10:20:00 333 [lb_av] [facility] temperature 2020-09-25 10:20:00 97.2 [degF] Common [facility] bmi 2020-09-25 10:20:00 47.78 kg/m2 Common [facility] oximetry 2020-09-25 10:20:00 95 % Common [facility] respiratory rate 2020-09-25 10:20:00 16 /min Comm on [facility] blood pressure 2020-09-25 10:20:00 127 mm[Hg] Common [facility] - systolic [facility] blood pressure 2020-09-25 10:20:00 74 mm[Hg] Common [facility] - diastolic [facility] Procedures This patient has no known procedures. Encounters Start End Encounter Admission Attending Care Care Encounter Source Date/Time Date/Time Type Type Clinicians Facility Department ID 2021-09-02 Out[place], STLMLC STLMLC [id number] Common 09:23:01 Lenore [facility] 2021-04-21 [place]patient [place], STLMLC STLMLC [id number] Common 14:01:47 Lenore [id number] [facility] 2021-04-21 [place]patient [place], STLMLC STLMLC [id number] Common 13:48:20 Lenore [id number] [facility] 2021-04-21 [place]patient [place], STLMLC STLMLC [id number] Common 13:39:41 Lenore [id number] [facility] 2021-04-21 Outpatient [place], STLMLC STLMLC [id number] Common 13:39:34 Lenore [id number] [facility] 2021-04-21 Outpatient [place], STLMLC STLMLC [id number] Common 13:26:31 Lenore [id number] [facility] 2021-04-21 Outpatient [place], STLMLC STLMLC [id number] Common 13:21:35 Lenore [id number] [facility] 2021-04-21 Outpatient [place], STLMLC STLMLC [id number] Common 12:59:15 Lenore [id number] [facility] 2021-04-21 Outpatient [place], STLMLC STLMLC [id number] Common 12:58:26 Lenore [id number] [facility] 2021-04-21 Outpatient [place], STLMLC STLMLC [id number] Common 12:57:42 Lenore [id number] [facility] 2021-04-21 Outpatient [place], STLMLC STLMLC [id number] Common 12:48:56 Lenore [id number] [facility] 2021-04-21 Outpatient [place], STLMLC STLMLC [id number] Common 12:48:19 Lenore [id number] [facility] 2021-04-21 Outpatient [place], STLMLC STLMLC [id number] Common 12:47:50 Lenore [id number] [facility] 2021-04-21 Outpatient STLMLC STLMLC [id number] Common 12:11:30 [id number] [facility] 2021-04-21 Outpatient [place], STLMLC STLMLC [id number] 11:48:33 [place]on 35789 [facility] 2021-09-10 2021-09-10 OFFICE STLMLC STLMLC [id number] Co mmon 00:00:00 00:00:00 VISIT EST Spir it PT LEVEL 3 - [facility] 2021-03-25 2021-03-25 (TEL) STLMLC STLMLC [id number] Co mmon 00:00:00 00:00:00 [facility] 2021-01-28 2021-01-28 OL DIG E/M STLMLC STLMLC [id number] Common 00:00:00 00:00:00 SVC 11-20 Spir it MIN [facility] 2021-01-07 2021-01-07 OFFICE STLMLC STLMLC [id number] Co mmon 00:00:00 00:00:00 VISIT Spirit ESTAB PT - CHI LEVEL 4 [facility] 2020-12-29 2020-12-29 OFFICE STLMLC STLMLC [id number] Co mmon 00:00:00 00:00:00 VISIT Spirit ESTAB PT - CHI LEVEL 4 [facility] 2020-12-17 2020-12-17 (TEL) STLMLC STLMLC [id number] Co mmon 00:00:00 00:00:00 [facility] 2020-11-11 2020-11-11 OFFICE STLMLC STLMLC [id number] Co mmon 00:00:00 00:00:00 VISIT EST Spir it PT LEVEL 3 - [facility] 2020-10-29 2020-10-29 (TEL) STLMLC STLMLC [id number] Co mmon 00:00:00 00:00:00 [facility] 2020-09-25 2020-09-25 OFFICE STLMLC STLMLC [id number] Co mmon 00:00:00 00:00:00 VISIT Spirit ESTAB PT - CHI LEVEL 4 [facility] 2020-09-03 2020-09-03 Outpatient STLMLC STLMLC [id number] Common 00:00:00 00:00:00 [facility] 2020-08-26 2020-08-26 Outpatient STLMLC STLMLC [id number] Common 00:00:00 00:00:00 [facility] 2020-08-04 2020-08-04 Outpatient STLMLC STLMLC [id number] Common 00:00:00 00:00:00 [facility] 2020-07-28 2020-07-28 Outpatient STLMLC STLMLC [id number] Common 00:00:00 00:00:00 [facility] 2020-07-21 2020-07-21 Outpatient STLMLC STLMLC [id number] Common 00:00:00 00:00:00 [facility] 2020-07-13 2020-07-13 Outpatient STLMLC STLMLC [id number] Common 00:00:00 00:00:00 [facility] 2020-07-01 2020-07-01 Outpatient STLMLC STLMLC [id number] Common 00:00:00 00:00:00 [facility] 2020-06-30 2020-06-30 Outpatient STLMLC STLMLC [id number] Common 00:00:00 00:00:00 [facility] 2020-06-26 2020-06-26 Outpatient STLMLC STLMLC [id number] Common 00:00:00 00:00:00 [facility] 2020-05-26 2020-05-26 Outpatient STLMLC STLMLC [id number] Common 00:00:00 00:00:00 [facility] 2020-04-22 2020-04-22 Outpatient STLMLC STLMLC [id number] Common 00:00:00 00:00:00 [facility] 2020-04-09 2020-04-09 Outpatient STLMLC STLMLC [id number] Common 00:00:00 00:00:00 [facility] 2020-04-08 2020-04-08 Outpatient STLMLC STLMLC [id number] Common 00:00:00 00:00:00 [facility] 2020-03-25 2020-03-25 Outpatient STLMLC STLMLC [id number] Common 00:00:00 00:00:00 [facility] 2019-12-18 2019-12-18 Outpatient STLMLC STLMLC [id number] Common 00:00:00 00:00:00 [facility] 2019-12-18 2019-12-18 Outpatient STLMLC STLMLC [id number] Common 00:00:00 00:00:00 [facility] Results This patient has no known results.
--- NOTE | 2022-01-18 14:12 | RAD REPORT ---
EXAM DESCRIPTION: RAD - Knee Left 3 View - 01/18/2022 1:55 pm CLINICAL HISTORY: PAIN COMPARISON: No comparisons FINDINGS/IMPRESSION: No acute fracture. No malalignment. No significant focal degenerative changes.
[2022-01-18] MEDS ORDERED: KETOROLAC 30 MG/ML INJ ONE (14:47)
--- NOTE | 2022-01-18 15:18 | EDPHYS ---
Physician Documentation [facility] Name: Jd Devries Age: 51 yrs Sex: Male : 1970 Arrival Date: 01/18/2022 Time: 13:21 Bed 27 Private MD: ED Physician Mac Anaya HPI: 01/18 15:29 This 51 yrs old Male presents to ER via Ambulatory with complaints of Knee Pain. kb 15:29 The patient presents with pain, that is acute, swelling. The complaints affect the left kb knee. Context: The problem was sustained at home, resulted from an unknown cause, the patient can fully bear weight, the patient is able to ambulate. Onset: The symptoms/episode began/occurred this morning. Modifying factors: The symptoms are alleviated by nothing. the symptoms are aggravated by movement, weight bearing, bending knee. Associated signs and symptoms: Pertinent positives: swelling, Pertinent negatives calf tenderness, fever, nausea, numbness, rash, tingling, vomiting, warmth, weakness. Treatment prior to arrival includes: no previous treatment. Severity of symptoms: At their worst the symptoms were moderate, in the emergency department the symptoms are unchanged. The patient has not experienced similar symptoms in the past. The patient has not recently seen a physician. Historical: - Allergies: 13:34 PENICILLINS; ll1 - PMHx: 13:34 High Cholesterol; Hypertension; Sleep Apnea; BPH; Arthritis; depression/anxiety; ll1 - PSHx: 13:34 heart cath; ll1 - Immunization history:: Client reports receiving the 2nd dose of the Covid vaccine. - Social history:: Smoking status: Patient reports the use of cigarette tobacco products, denies chronic smoking, but will smoke occasionally. ROS: 15:27 Constitutional: Negative for fever, chills, and weight loss. kb 15:27 MS/extremity: Positive for pain, swelling, of the left knee. 15:27 All other systems are negative. Exam: 15:27 Constitutional: This is a well developed, well nourished patient who is awake, alert, kb and in no acute distress. Head/Face: Normocephalic, atraumatic. ENT: Moist Mucous membranes Cardiovascular: Regular rate and rhythm with a normal S1 and S2. No gallops, murmurs, or rubs. No pulse deficits. Respiratory: Respirations even and unlabored. No increased work of breathing. Talking in full sentences Abdomen/GI: Soft, non-tender. No distention Skin: Warm, dry with normal turgor. Normal color. Neuro: Awake and alert, GCS 15, oriented to person, place, time, and situation. Moves all extremities. Normal gait. Psych: Awake, alert, with orientation to person, place and time. Behavior, mood, and affect are within normal limits. 15:27 Musculoskeletal/extremity: Extremities: grossly normal except: noted in the left knee: decreased ROM, pain, swelling, ROM: intact in all extremities, Circulation is intact in all extremities. Sensation intact. Weight bearing: able to fully bear weight. Vital Signs: 13:35 BP 147 / 69; Pulse 79; Resp 18; Temp 98.3; Pulse Ox 99% ; Weight 151.05 kg; Height 5 ll1 ft. 10 in. (177.80 cm); Pain 10/10; 14:35 BP 138 / 80; Pulse 78; Resp 18; Pulse Ox 96% on R/A; em6 13:35 Body Mass Index 47.78 (151.05 kg, 177.80 cm) ll1 MDM: 13:31 Patient medically screened. kb 15:27 Data reviewed: vital signs, nurses notes. Data interpreted: Pulse oximetry: on room air kb is 96 %. Interpretation: normal. Counseling: I had a detailed discussion with the patient and/or guardian regarding: the historical points, exam findings, and any diagnostic results supporting the discharge/admit diagnosis, radiology results, the need for outpatient follow up, a family practitioner, to return to the emergency department if symptoms worsen or persist or if there are any questions or concerns that arise at home. 15:27 ED course: Mild swelling noted to lateral aspect of knee. No redness or warmth kb appreciated. Pt educated on return precautions and need for ortho follow up. 01/18 13:37 Order name: Knee Left 3 View XRAY; Complete Time: 14:22 kb 01/18 15:17 Order name: Knee Immobilizer; Complete Time: 15:36 kb 01/18 15:17 Order name: Crutches; Complete Time: 15:36 kb Administered Medications: 14:49 Drug: Ketorolac 30 mg Route: IM; Site: right deltoid; em6 15:13 Follow up: Response: No adverse reaction em6 Disposition Summary: 01/18/22 15:18 Discharge Ordered Location: Home kb Condition: Stable kb Diagnosis - Pain in left knee kb Followup: kb - With: Emergency Department - When: As needed - Reason: Worsening of condition Followup: kb - With: Private Physician - When: 2 - 3 days - Reason: Recheck today's complaints, Continuance of care, Re-evaluation by your physician Discharge Instructions: - Discharge Summary Sheet kb - Acute Knee Pain, Adult, [id number] kb Forms: - Medication Reconciliation Form kb - Thank You Letter kb - Antibiotic Education kb - Prescription Opioid Use kb - Work release form em6 Prescriptions: - Diclofenac Sodium 75 mg Oral tablet,delayed release (DR/EC) - take 1 tablet by ORAL route 2 times per day As needed; 30 tablet; Refills: 0, kb Product Selection Permitted Signatures: Dispatcher [employer] Shanna Daly FNP-C FNP-Sully Bragg RN RN ll1 Zenobia Perez RN RN em6
--- NOTE | 2022-01-18 15:18 | ER ---
Nurse's Notes [facility] Name: Jd Devries Age: 51 yrs Sex: Male : 1970 Arrival Date: 01/18/2022 Time: 13:21 Bed 27 Private MD: Diagnosis: Pain in left knee Presentation: 01/18 13:35 Chief complaint: Patient states: L knee pain for 1 day, no specific injury remembered. ll1 Coronavirus screen: Vaccine status: Patient reports receiving the 2nd dose of the covid vaccine. Client denies travel out of the [place] in the last 14 days. At this time, the client does not indicate any symptoms associated with coronavirus-19. Ebola Screen: Patient denies travel to an Ebola-affected area in the 21 days before illness onset. Initial Sepsis Screen: Does the patient meet any 2 criteria? No. Patient's initial sepsis screen is negative. Does the patient have a suspected source of infection? Yes: Bone or joint infection. Risk Assessment: Do you want to hurt yourself or someone else? Patient reports no desire to harm self or others. Onset of symptoms was January 18, 2022. 13:35 Method Of Arrival: Ambulatory ll1 13:35 Acuity: PARRIS 4 ll1 Triage Assessment: 13:36 General: Appears uncomfortable, Behavior is cooperative, appropriate for age. Pain: ll1 Complains of pain in left leg Pain currently is 10 out of 10 on a pain scale. Quality of pain is described as aching, throbbing, Aggravated by increased activity, weight bearing. Musculoskeletal: Circulation, motion, and sensation intact. Capillary refill < 3 seconds, Reports pain in left leg. Historical: - Allergies: 13:34 PENICILLINS; ll1 - PMHx: 13:34 High Cholesterol; Hypertension; Sleep Apnea; BPH; Arthritis; depression/anxiety; ll1 - PSHx: 13:34 heart cath; ll1 - Immunization history:: Client reports receiving the 2nd dose of the Covid vaccine. - Social history:: Smoking status: Patient reports the use of cigarette tobacco products, denies chronic smoking, but will smoke occasionally. Screenin:41 Abuse screen: Denies threats or abuse. Nutritional screening: No deficits noted. em6 Tuberculosis screening: No symptoms or risk factors identified. Fall Risk Total Piña Fall Scale indicates No Risk (0-24 pts). Assessment: 13:39 General: Appears comfortable, Behavior is cooperative. Pain: Complains of pain in left em6 leg Pain does not radiate. Pain currently is 7 out of 10 on a pain scale. Quality of pain is described as sharp. Neuro: Level of Consciousness is awake, alert, obeys commands, Oriented to person, place, time, situation. Cardiovascular: Patient's skin is warm and dry. Respiratory: Airway is patent Respiratory effort is even, unlabored, Respiratory pattern is regular, symmetrical. GI: No signs and/or symptoms were reported involving the gastrointestinal system. : No signs and/or symptoms were reported regarding the genitourinary system. EENT: No signs and/or symptoms were reported regarding the EENT system. Derm: No signs and/or symptoms reported regarding the dermatologic system. Musculoskeletal: Swelling present in left knee. 14:35 Reassessment: No changes from previously documented assessment. Patient and/or family em6 updated on plan of care and expected duration. Pain level reassessed. Patient is alert, oriented x 3, equal unlabored respirations, skin warm/dry/pink. Vital Signs: 13:35 BP 147 / 69; Pulse 79; Resp 18; Temp 98.3; Pulse Ox 99% ; Weight 151.05 kg; Height 5 ll1 ft. 10 in. (177.80 cm); Pain 10/10; 14:35 BP 138 / 80; Pulse 78; Resp 18; Pulse Ox 96% on R/A; em6 13:35 Body Mass Index 47.78 (151.05 kg, 177.80 cm) ll1 ED Course: 13:21 Patient arrived in ED. rg4 13:24 Zenobia Perez, RN is Primary Nurse. em6 13:31 Shanna Styles FNP-C is PHCP. kb 13:31 Mac Anaya MD is Attending Physician. kb 13:34 Arm band placed on Patient placed in an exam room, on a stretcher. ll1 13:36 Triage completed. ll1 13:41 Bed in low position. Call light in reach. Side rails up X 1. Pulse ox on. NIBP on. Warm em6 blanket given. 13:49 Knee Left 3 View XRAY Sent. em6 13:57 Knee Left 3 View XRAY In Process Unspecified. EDMS 15:37 No provider procedures requiring assistance completed. Patient did not have IV access em6 during this emergency room visit. Administered Medications: 14:49 Drug: Ketorolac 30 mg Route: IM; Site: right deltoid; em6 15:13 Follow up: Response: No adverse reaction em6 Medication: 15:37 VIS not applicable for this client. em6 Outcome: 15:18 Discharge ordered by . rigo 15:37 Discharged to home with crutches. em6 15:37 Condition: stable 15:37 Discharge instructions given to patient, family, Instructed on discharge instructions, follow up and referral plans. medication usage, crutch walking, Demonstrated understanding of instructions, follow-up care, medications, crutch walking, Prescriptions given X 1. 15:37 Patient left the ED. em6 Signatures: Dispatcher [employer] EDMS Shanna Styles, CHILDREN'S ATTENDANT-C ALFREDA-Lisa Cazares rg4 Sully Suárez RN RN ll1 Zenobia Perez RN RN em6
[2022-01-18 16:27] VITALS: TEMP 98.3
[2022-01-18 16:28] VITALS: BP 138/80; O2SAT 96
== END 2022-01-18 15:37 | disposition home or self-care (01) ==
LOC: ER 13:18
DX: M25.562 Pain in left knee (principal)
CPT/HCPCS: 96372; 99284

== ENCOUNTER 2022-09-25 20:29 | Emergency (ER) | payer OTHER, SELFPAY ==
--- OUTSIDE RECORDS SUMMARY | 2022-09-25 20:32 | XMS REPORT | Continuity of Care Document ---
:1970 Author Organization [facility] t Address [address] [facility] [address] [place] [address] Care Team Providers Name Role Phone Lenore Barr Attending Clinician Unavailable Meron Jaquez Attending Clinician Unavailable Emiliano Murray Attending Clinician Unavailable LENORE BARR Admitting Clinician Unavailable Payers Payer Name Policy Type Policy Number Effective Date Expiration Date S milton [employer] 6 [id number] 2019 Common Spiri t [employer] of 00:00:00 - [facility] Problems Condition Condition Condition Status Onset Resolution Last Treating Co mments Source Name Details Category Date Date Treatment Clinician Date Arthralgia Pain in Problem Comm on of the right knee Spirit lower leg - [facility] [id number] ED Problem Common (erectile Spirit dysfunctio - [facility] n) of [facility] Low back Low back Problem Commo n pain pain [facility] [id number] Essential Problem Comm on hypertensi Spirit on [facility] [id number] Hyperchole Problem Com mon sterolemia [facility] [id number] Depression Problem Co mmon with Spirit anxiety - [facility] [id number] Back Problem Common muscle [facility] spasm [facility] [id number] Low Problem Common testostero Spirit ne in male [facility] [id number] Urethritis Problem Com mon Spirit - [facility] Chronic Other Problem Common pain chronic [facility] pain [facility] [id number] Arthritis Problem Co mmon [id number] of knee, [facility] right [facility] Kidney Kidney Problem Common stone stones [facility] [id number] Other Problem Commo n [id number] stricture [facility]appin [facility] [id number] BPH loc w Problem Com [facility] obs/LUTS [facility] [id number] Hypogonadi Problem Com mon male [facility] Allergies, Adverse Reactions, Alerts Allergy Allergy Status Severity Reaction(s) Onset Inactive Treating Comm ents Source Name Type Date Date Clinician Penicill DA Active U UNKNOWN [facility] ins 06-28 Corpus 00:00: [address] 0 Drug Active hives Common allergy [facility] Social History Social Habit Start Date Stop Date Quantity Comments Source History of Tobacco Current Smoker Co mmon [facility] Use [facility] Sex Assigned At Com [facility] Smoking Status Start Date Stop Date Source Current Smoker 2021-09-10 00:00:00 Common Spiri t [facility] Medications Ordered Filled Start Stop Current Ordering Indication Dosage Frequency Signature Comments Components Source Medication Medication Date Date Medication? Clinician (SIG) Name Name Cialis 20 Cialis 20 2020-03- No 1{table Cialis 20 MG MG 03-30 t} MG 00:00: 00:00 00 :00 Cialis 20 Cialis 20 2020-03- No 1{table Cialis 20 [...] 00 :00 Flomax 0.4 Flomax 0.4 2020-0 2022- No 1{capsu QD Flomax 0.4 MG MG -15 01-02 le} MG 00:00: 00:00 00 :00 Flomax 0.4 Flomax 0.4 2020-0 2022- No 1{capsu QD Flomax 0.4 MG MG -15 01-02 le} MG 00:00: 00:00 00 :00 Flomax 0.4 Flomax 0.4 2020-0 2- No 1{capsu QD Flomax 0.4 MG MG -05-05 le} MG 00:00: 00:00 00 :00 Flomax 0.4 Flomax 0.4 2020-0 2- No 1{capsu QD Flomax 0.4 MG MG -15 05-05 le} MG 00:00: 00:00 00 :00 Flomax 0.4 Flomax 0.4 2020-0 2- No 1{capsu QD Flomax 0.4 MG MG -15 05-05 le} MG 00:00: 00:00 00 :00 Bupivicaine Bupivicaine 2020-0 No 2.5mg Common [place] 5-04 Spirit 00:00: - [facility] Kenalog Kenalog 2020-0 No 40mg Common (Triamcinol (Triamcinol 5-04 S pirit one) one) 00:00: - [facility] Bupivicaine Bupivicaine 2020-0 No 2.5mg Common [place] Mer [place] 5-04 Spirit 00:00: - [facility] Kenalog Kenalog 2020-0 No 40mg Common (Triamcinol (Triamcinol 5-04 S pirit one) one) 00:00: - [facility] Methocarbam Methocarbam 2020-1 No BID Methocarba ol 750 MG ol 750 MG 2-03 mol 750 MG 00:00: 00 Methocarbam Methocarbam No QID Methocarba ol 750 [...] HCl 40 MG le} HCl 40 MG Lisinopril Lisinopril No 1{table BID Lisinopril 20 MG 20 MG t} 20 MG Fish Oil Fish Oil No 1{capsu BID Fish Oil 1000 MG 1000 MG le} 1000 MG Lisinopril- Lisinopril- No QD Lisinopril hydroCHLORO [...] MG le} HCl 40 MG Methocarbam Methocarbam BID Methocarba ol 750 MG ol 750 MG 10-15 mol 750 MG 00:00 :00 Immunizations Ordered Immunization Filled Immunization Date Status Commen ts Source Name Name Bupivicaine [place] Bupivicaine [place] 2020-07-28 Completed [facility] 15:28:00 - [facility] Salomón Aguilaralog 2020-07-28 Completed [facility] (Triamcinolone) (Triamcinolone) 15:28: [facility] Bupivicaine [place] Bupivicaine [place] 2020-07-28 Completed [facility] 15:28: [facility] Kenlavell Kenalog 2020-07-28 Completed [facility] (Triamcinolone) (Triamcinolone) 15:28: [facility] Bupivicaine [place] Bupivicaine [place] 2020-07-28 Completed [facility] 15:28:00 - [facility] Kenlavell Kenalog 2020-07-28 Completed [facility] (Triamcinolone) (Triamcinolone) 15:: [facility] Bupivicaine [place] Bupivicaine [place] 2020-07-28 Completed [facility] 15:28: - [facility] Kenlavell Kenalog 2020-07-28 Completed [facility] (Triamcinolone) (Triamcinolone) 15:28:00 [facility] Bupivicaine [place] Bupivicaine [place] 2020-07-28 Completed [facility] 15:28: - [facility] Kenlavell Kenalog 2020-07-28 Completed [facility] (Triamcinolone) (Triamcinolone) 15:28:00 [facility] Bupivicaine [place] Bupivicaine [place] 2020-07-28 Completed [facility] 15:28: [facility] Kenlavell Kenalog 2020-07-28 Completed [facility] (Triamcinolone) (Triamcinolone) 15:28:00 [facility] Moderna COVID-19 Moderna COVID-19 2020-04-29 Completed Co mmon Spirit Vaccine Vaccine 09:26:00 - [facility] Moderna COVID-19 Moderna COVID-19 2020-04-29 Completed Co mmon Spirit Vaccine Vaccine 09:26:00 - [facility] Moderna COVID-19 Moderna COVID-19 2020-04-29 Completed Co mmon Spirit Vaccine Vaccine 09:26:00 - [facility] Moderna COVID-19 Moderna COVID-19 2020-04-29 Completed Co mmon Spirit Vaccine Vaccine 09:26:00 - [facility] Moderna COVID-19 Moderna COVID-19 2020-04-29 Completed Co mmon Spirit Vaccine Vaccine 09:26:00 - [facility] Moderna COVID-19 Moderna COVID-19 2020-04-29 Completed Co mmon Spirit Vaccine Vaccine 09:26:00 - [facility] Moderna COVID-19 Moderna COVID-19 2020-04-29 Completed Co mmon Spirit Vaccine Vaccine 09:26:00 - [facility] Moderna COVID-19 Moderna COVID-19 2020-04-29 Completed Co mmon Spirit Vaccine Vaccine 09:26:00 - [facility] Moderna COVID-19 Moderna COVID-19 2020-04-29 Completed Co mmon Spirit Vaccine Vaccine 09:26:00 - [facility] Moderna COVID-19 Moderna COVID-19 2020-04-29 Completed Co mmon Spirit Vaccine Vaccine 09:26:00 - [facility] Moderna COVID-19 Moderna COVID-19 2020-03-24 Completed Co mmon Spirit Vaccine Vaccine 09:26:00 - [facility] Moderna COVID-19 Moderna COVID-19 2020-03-24 Completed Co mmon Spirit Vaccine Vaccine 09:26:00 - [facility] Moderna COVID-19 Moderna COVID-19 2020-03-24 Completed Co mmon Spirit Vaccine Vaccine 09:26:00 [facility] Moderna COVID-19 Moderna COVID-19 2020-03-24 Completed Co mmon Spirit Vaccine Vaccine 09:26:00 - [facility] Moderna COVID-19 Moderna COVID-19 2020-03-24 Completed Co mmon Spirit Vaccine Vaccine 09:26:00 - [facility] Moderna COVID-19 Moderna COVID-19 2020-03-24 Completed Co mmon Spirit Vaccine Vaccine 09:26:00 [facility] Moderna COVID-19 Moderna COVID-19 2020-03-24 Completed Co mmon Spirit Vaccine Vaccine 09:26:00 - [facility] Moderna COVID-19 Moderna COVID-19 2020-03-24 Completed Co mmon Spirit Vaccine Vaccine 09:26:00 - [facility] Moderna COVID-19 Moderna COVID-19 2020-03-24 Completed Co mmon Spirit Vaccine Vaccine 09:26:00 [facility] Moderna COVID-19 Moderna COVID-19 2020-03-24 Completed Co mmon Spirit Vaccine Vaccine 09:26:00 [facility] Vital Signs Vital Name Observation Time Observation Value Comments Source height 2021-09-10 08:40:00 70.00 [in_i] [facility] weight 2021-09-10 08:40:00 348.8 [lb_av] [facility] temperature 2021-09-10 08:40:00 97.3 [degF] [facility] bmi 2021-09-10 08:40:00 50.04 kg/m2 [facility] 2021-09-10 08:40:00 94 % [facility] respiratory rate 2021-09-10 08:40:00 18 /min Comm on [facility] blood pressure 2021-09-10 08:40:00 138 mm[Hg] Common [facility] - systolic [facility] blood pressure 2021-09-10 08:40:00 88 mm[Hg] Common [facility] - diastolic [facility] height 2021-01-07 10:00:00 70.00 [in_i] Common S pirit [facility] weight 2021-01-07 10:00:00 332 [lb_av] Common S pirit - [facility] temperature 2021-01-07 10:00:00 98.1 [degF] Common S pirit - [facility] bmi 2021-01-07 10:00:00 47.63 kg/m2 Common S pirit [facility] oximetry 2021-01-07 10:00:00 96 % Common S pirit - [facility] blood pressure 2021-01-07 10:00:00 161 mm[Hg] [facility] - systolic [facility] blood pressure 2021-01-07 10:00:00 97 mm[Hg] [facility] - diastolic [facility] height 2020-12-29 10:20:00 70.00 [in_i] Common S pirit [facility] weight 2020-12-29 10:20:00 334 [lb_av] Common pirit - [facility] temperature 2020-12-29 10:20:00 97.0 [degF] Common S pirit [facility] bmi 2020-12-29 10:20:00 47.92 kg/m2 [facility] S pirit [facility] oximetry 2020-12-29 10:20:00 97 % [facility] respiratory rate 2020-12-29 10:20:00 16 /min Comm on Spirit [facility] blood pressure 2020-12-29 10:20:00 134 mm[Hg] [facility] - systolic [facility] blood pressure 2020-12-29 10:20:00 88 mm[Hg] [facility] - diastolic [facility] height 2020-11-11 09:00:00 70.00 [in_i] Common S pirit [facility] weight 2020-11-11 09:00:00 339 [lb_av] Common S pirit [facility] temperature 2020-11-11 09:00:00 97.9 [degF] Common S pirit - [facility] bmi 2020-11-11 09:00:00 48.64 kg/m2 [facility] oximetry 2020-11-11 09:00:00 97 % [facility] respiratory rate 2020-11-11 09:00:00 18 /min Comm on [facility] blood pressure 2020-11-11 09:00:00 140 mm[Hg] Common [facility] - systolic [facility] blood pressure 2020-11-11 09:00:00 89 mm[Hg] Common [facility] - diastolic [facility] height 2020-09-25 10:20:00 70.00 [in_i] [facility] weight 2020-09-25 10:20:00 333 [lb_av] [facility] temperature 2020-09-25 10:20:00 97.2 [degF] [facility] bmi 2020-09-25 10:20:00 47.78 kg/m2 [facility] oximetry 2020-09-25 10:20:00 95 % [facility] respiratory rate 2020-09-25 10:20:00 16 /min Comm on [facility] blood pressure 2020-09-25 10:20:00 127 mm[Hg] [facility] systolic [facility] blood pressure 2020-09-25 10:20:00 74 mm[Hg] [facility] diastolic [facility] Procedures This patient has no known procedures. Encounters Start End Encounter Admission Attending Care Care Encounter Source Date/Time Date/Time Type Type Clinicians Facility Department ID 2022-05-09 Outpatient Judson, STLMLC STLMLC [id number] Common 14:37:01 Lenore 38851 [facility] 2021-09-02 Outpatient Judson, STLMLC STLMLC [id number] Common 09:23:01 Lenore 44105 [facility] 2021-04-21 Outpatient Judosn, STLMLC STLMLC [id number] Common 14:01:47 Lenore 64822 [facility] 2021-04-21 Outpatient Nye, STLMLC STLMLC [id number] Common 13:48:20 Lenore 65650 [facility] 2021-04-21 Outpatient Nye, STLMLC STLMLC [id number] Common 13:39:41 Lenore 24706 [facility] 2021-04-21 Outpatient Nye, STLMLC STLMLC [id number] Common 13:39:34 Lenore 19569 [facility] 2021-04-21 Outpatient Nye, STLMLC STLMLC [id number] Common 13:26:31 Lenore 54691 [facility] 2021-04-21 Outpatient Nye, STLMLC STLMLC [id number] Common 13:21:35 Lenore 16971 [facility] 2021-04-21 Outpatient Nye, STLMLC STLMLC [id number] Common 12:59:15 Lenore 99100 [facility] 2021-04-21 Outpatient Nye, STLMLC STLMLC [id number] Common 12:58:26 Lenore 34183 [facility] 2021-04-21 Outpatient Nye, STLMLC STLMLC [id number] Common 12:57:42 Lenore 10944 [facility] 2021-04-21 Outpatient Nye, STLMLC STLMLC [id number] Common 12:48:56 Lenore 86159 [facility] 2021-04-21 Outpatient Nye, STLMLC STLMLC [id number] Common 12:48:19 Lenore 40162 [facility] 2021-04-21 Outpatient Nye, STLMLC STLMLC [id number] Common 12:47:50 Lenore 77019 [facility] 2021-04-21 Outpatient STLMLC STLMLC [id number] Common 12:11:30 [id number] [facility] 2021-04-21 Outpatient Millender, STLMLC STLMLC [id number] Common 11:48:33 Meron 18957 [facility] 2022-06-28 2022-06-28 Emergency EM Shelby [facility] ER [id number] [facility] 14:25:00 17:40:[address] [facility] 2022-06-28 2022-06-28 Emergency EM Shelby [facility] ER [id number] [facility] 14:25:00 17:40:[address] [facility] 2022-04-27 2022-04-27 (TEL) STLMLC STLMLC [id number] Co mmon 00:00:00 00:00:00 [facility] 2021-09-10 2021-09-10 OFFICE STLMLC STLMLC [id number] Co mmon 00:00:00 00:00:00 VISIT EST Spir it PT LEVEL 3 [facility] 2021-03-25 2021-03-25 (TEL) STLMLC STLMLC [id number] Co mmon 00:00:00 00:00:00 [facility] 2021-01-28 2021-01-28 OL DIG E/M STLMLC STLMLC [id number] Common 00:00:00 00:00:00 [facility] Spir it MIN - [facility] 2021-01-07 2021-01-07 OFFICE STLMLC STLMLC [id number] Co mmon 00:00:00 00:00:00 VISIT [facility] ESTAB PT - CHI LEVEL 4 [facility] 2020-12-29 2020-12-29 OFFICE STLMLC STLMLC [id number] Co mmon 00:00:00 00:00:00 VISIT Spirit ESTAB PT - CHI LEVEL 4 [facility] 2020-12-17 2020-12-17 (TEL) STLMLC STLMLC [id number] Co mmon 00:00:00 00:00:00 [facility] 2020-11-11 2020-11-11 OFFICE STLMLC STLMLC [id number] Co mmon 00:00:00 00:00:00 VISIT EST Spir it PT LEVEL 3 [facility] 2020-10-29 2020-10-29 (TEL) STLMLC STLMLC [id number] Co mmon 00:00:00 00:00:00 [facility] 2020-09-25 2020-09-25 OFFICE STLMLC STLMLC [id number] Co mmon 00:00:00 00:00:00 VISIT [facility] 4 [facility] 2020-09-03 2020-09-03 Outpatient STLMLC STLMLC [id number] Common 00:00:00 00:00:00 [facility] 2020-08-26 2020-08-26 Outpatient STLMLC STLMLC [id number] Common 00:00:00 00:00:00 [facility] 2020-08-04 2020-08-04 Outpatient STLMLC STLMLC [id number] Common 00:00:00 00:00:00 [facility] 2020-07-28 2020-07-28 Outpatient STLMLC STLMLC [id number] Common 00:00:00 00:00:00 [facility] 2020-07-21 2020-07-21 Outpatient STLMLC STLMLC [id number] Common 00:00:00 00:00:00 [facility] 2020-07-13 2020-07-13 Outpatient STLMLC STLMLC [id number] Common 00:00:00 00:00:00 [facility] 2020-07-01 2020-07-01 Outpatient STLMLC STLMLC [id number] Common 00:00:00 00:00:00 [facility] 2020-06-30 2020-06-30 Outpatient STLMLC STLMLC [id number] Common 00:00:00 00:00:00 [facility] 2020-06-26 2020-06-26 Outpatient STLMLC STLMLC [id number] Common 00:00:00 00:00:00 [facility] 2020-05-26 2020-05-26 Outpatient STLMLC STLMLC [id number] Common 00:00:00 00:00:00 [facility] 2020-04-22 2020-04-22 Outpatient STLMLC STLMLC [id number] Common 00:00:00 00:00:00 [facility] 2020-04-09 2020-04-09 Outpatient STLMLC STLMLC [id number] Common 00:00:00 00:00:00 [facility] 2020-04-08 2020-04-08 Outpatient STLMLC STLMLC [id number] Common 00:00:00 00:00:00 [facility] 2020-03-25 2020-03-25 Outpatient STLMLC STLMLC [id number] Common 00:00:00 00:00:00 [facility] 2019-12-18 2019-12-18 Outpatient STLMLC STLMLC [id number] Common 00:00:00 00:00:00 [facility] 2019-12-18 2019-12-18 Outpatient STLMLC STLMLC [id number] Common 00:00:00 00:00:00 [facility] Results Test Description Test Time Test Comments Results Result Comments Source COMPREHENSIVE METABOLIC PANEL 2022-06-28 17:31:00 Test Item Value Reference Range Interpretation Comme nts SODIUM (test code = NA) 144 MMOL/L 133-145 N POTASSIUM (test code = K) 5.1 MMOL/L 3.6-5.2 N NO HEMOLYSIS CHLORIDE (test code = CL) 106 MMOL/L 100-108 N CARBON DIOXIDE (test code = 29 MMOL/L 22-32 N CO2) GLUCOSE (test code = GLU) 103 MG/DL 65-99 H Re sults of this assay method may be falsely depr essed orelevated if patient is t aking sulfasalazine. BLOOD UREA NITROGEN (test 17 MG/DL 6-20 N code = BUN) GLOMERULAR FILTRATION RATE 90 56-130 N T he Glomerular Filtration Rate (test code = GFR) is a calcu lated parameterbased on serum Creati nine, patient age and sex. GFR va luesless than 60 mL/min/1.73 squ are meters are indicative ofCh ronic Kidney Disease. Values less than 15 mL/min/1.73squa re meters indicate Kidney failure. The calculation for GFR is based on the CKD-EPI (20 21) calculation. This formulais race indifferent and is the esthela mmended formula for GFRby the [facility] Kidney Foundation for Adults.The GFR will not calcul ate if the sex is unknown or if t hepatient's age is <18 years. CREATININE (test code = 1.00 MG/DL 0.60-1.00 N CREAT) TOTAL PROTEIN (test code = 7.9 G/DL 6.4-8.2 N PROT) ALBUMIN (test code = ALB) 4.3 G/DL 3.4-5.0 N CALCIUM (test code = CA) 10.4 MG/DL 8.7-10.5 N BILIRUBIN TOTAL (test code = 0.9 MG/DL 0.0-1.0 N BILT) SGOT/AST (test code = AST) 50 Units/L 15-37 H R esults of this assay method may be falsely depr essed orelevated if patient is t aking sulfasalazine. SGPT/ALT (test code = ALT) 63 Units/L 30-65 N R esults of this assay method may be falsely depr essed orelevated if patient is t aking sulfasalazine. ALKALINE PHOSPHATASE TOTAL 149 Units/L 50-136 H (test code = ALKP) [id number] 16:40:00 Test Item Value Reference Range Interpretation Comments MAGNESIUM (test code = MAG) 2.1 MG/DL 1.8-2.4 N [id number] 16:40:00 Test Item Value Reference Range Interpretation Comments LIPASE (test code = LIP) 118 Units/L 73-393 N URINALYSIS W/O [id number] 16:34:00 Test Item Value Reference Range Interpretation Comments UA COLOR (test code = COLU) Yellow YELLOW UA APPEARANCE (test code = CLEAR CLEAR APPU) UA GLUCOSE DIPSTICK (test NEGATIVE mg/dL NEGATIVE code = DGLUU) UA BILIRUBIN DIPSTICK (test NEGATIVE NEGATIVE code = BILU) UA KETONE DIPSTICK (test code NEGATIVE mg/dL NEGATIVE = KETU) UA SPECIFIC GRAVITY (test 1.010 1.001-1.035 N code = SGU) UA BLOOD DIPSTICK (test code TRACE NEGATIVE = ALAINA) UA PH DIPSTICK (test code = 6.0 5.5-7.0 N NONA) UA PROTEIN DIPSTICK (test NEGATIVE mg/dL NEGATIVE code = PROU) UA UROBILINOGEN DIPSTICK 1.0 mg/dL NORMAL (test code = URO) UA NITRITE DIPSTICK (test NEGATIVE NEGATIVE code = BASIL) UA LEUKOCYTE ESTERASE NEGATIVE NEGATIVE DIPSTICK (test code = LEUU) UA COMMENT (test code = COMU) VOLUME 10-12 ML URINE SPECIMEN DESCRIPTION Clean Catch (test code = UASPEC) Indication for culture: RiskForSepsis-no oth srcURINE SOURCE: Clean Catch- CT ABD PELVIS [id number] 15:58:00 [facility] 1970 Sex: M Patient Name: JD COOMBS Unit No: [id number] EXAMS: CPT CODE: [id number] CT ABD PELVIS W/CONT [id number] Reason: ABD PAIN HISTORY: ABD PAIN TECHNIQUE: Helical imaging of the abdomen and pelvis is performed with intravenous contrast. Approximately 100 mL of intravenous contrast was administered. No oral contrast is administered. Sagittal and coronal reconstructions reviewed. CT DLP dose: 1234 mGy-cm. One or more of the following dose reduction techniques were used: Automated exposure control, adjustment of the mA and/or kV according to patient size, and/or utilization of iterative reconstruction technique.Location: W1 Comparison study: None FINDINGS: The images of the lung bases demonstrate no masses, effusions or infiltrates. Heart size is normal. There is no pericardial effusion. The liver is homogeneous, free of focal masses and dilated intrahepatic ducts. The gallbladder is contracted. The spleen is normal in size and contour. The pancreas is morphologically normal. No mass, pancreatic duct dilatation or peripancreatic edema is visible. The adrenal glands are normal in size and contour. Neither cystic nor solid renal masses are visible. No hydronephrosis is seen. No renal calculi or perinephricstranding. The urinary bladder is unremarkable. Stomach and duodenum appear unremarkable. The visualized small bowel is unremarkable without evidence of bowel thickening or obstruction. The colon is unremarkable. The appendix is not confidently seen. There is no pericecal inflammation. There is mild stranding in the root of mesentery. No retroperitoneal lymphadenopathy is present. The aorta is of normal caliber. The IVC is patent. The portal vein is patent. No evidence of ascites. Abdominal wall isintact. No significant bone lesions. IMPRESSION: 1. Mild nonspecific stranding along the root of themesentery. Consider possibility of mesenteritis. Kota FSED NAME: JD COOMBS [facility] PHYS: RODRIGUEMA. - Emiliano Murray Lashawn Escudero [id number] : 1970 AGE: 52 SEX: M LOC: D.RER PHONE #: EXAM DATE: 06/28/2022 STATUS: REG ER FAX #: RAD NO: DC Dt: PAGE 1 SignedReport (CONTINUED) Patient Name: JD COOMBS Unit No: [id number] EXAMS: CPT CODE: [id number] CT ABDPELVIS W/CONT 46453 (Continued) Reason: ABD PAIN at 1558 Reported and signed by: Elias Rogers MD CC: Germania Kirkpatrick; Emiliano Murray DO Technologist: SHREYA Ferrari Trscrpt Dt/ ([email or web address] Orig Print D/T: S: 06/28/2022 (1602) CTDI: DLP: Kota FS NAME: JD COOMBS [facility] PHYS: RODRIGUEMA. - ShelbyEmiliano Fuchs Lashawn Escudero [id number] : 1970 AGE: 52 SEX: M LOC: D.RER PHONE #: EXAM DATE: 06/28/2022 STATUS: REG ER FAX #: RAD NO: DC Dt: PAGE 2 Signed Report- CT ABD PELVIS [id number] 15:58:00 [facility] 1970 Sex: M Patient Name: JD COOMBS Unit No: [id number] EXAMS: CPT CODE: [id number] CT ABD PELVIS W/CONT 66426 Reason: ABD PAIN HISTORY: ABD PAIN TECHNIQUE: Helical imaging of the abdomen and pelvis is performed with intravenous contrast. Approximately 100 mL of intravenous contrast was administered. No oral contrast is administered. Sagittal and coronal reconstructions reviewed. CT DLP dose: 1234 mGy-cm. One or more of the following dose reduction techniques were used: Automated exposure control, adjustment of the mA and/or kV according to patient size, and/or utilization of iterative reconstruction technique.Location: W1 Comparison study: None FINDINGS: The images of the lung bases demonstrate no masses, effusions or infiltrates. Heart size is normal. There is no pericardial effusion. The liver is homogeneous, free of focal masses and dilated intrahepatic ducts. The gallbladder is contracted. The spleen is normal in size and contour. The pancreas is morphologically normal. No mass, pancreatic duct dilatation or peripancreatic edema is visible. The adrenal glands are normal in size and contour. Neither cystic nor solid renal masses are visible. No hydronephrosis is seen. No renal calculi or perinephric stranding. The urinary bladder is unremarkable. Stomach and duodenum appear unremarkable. The visualized small bowel is unremarkable without evidence of bowel thickening or obstruction. The colon is unremarkable. The appendix is not confidently seen. There is no pericecal inflammation. There is mild stranding in the root of mesentery. No retroperitoneal lymphadenopathy is present. The aorta is of normal caliber. The IVC is patent. The portal vein is patent. No evidence of ascites. Abdominal wall is intact. No significant bone lesions. IMPRESSION: 1. Mild nonspecific stranding along the root of the mesentery. Consider possibility of mesenteritis. [place] [facility] NAME: JD COOMBS [address] [place] [address] PHYS: Emil[place] [address] : 1970 AGE: 52 SEX: M LOC: D.RER PHONE #: EXAM DATE: 06/28/2022 STATUS: DEP ER FAX #: RAD NO: DC Dt: PAGE 1 Signed Report (CONTINUED) Patient Name: JD COOMBS Unit No: [id number] EXAMS: CPT CODE: [id number] CT ABD PELVIS W/CONT 85874 (Continued) Reason: ABD PAIN at 1558 Reported and signed by: Elias Rogers MD CC: Germania Kirkpatrick; Emiliano Murray DO Technologist: SHREYA Ferrari Trscrpt Dt/ ([id number] Orig Print D/T: S: 06/28/2022 (1602) CTDI: DLP: [place] [facility] NAME: JD COOMBS [address] [place] [address] PHYS: [place] [id number] : 1970 AGE: 52 SEX: M LOC: D.RER PHONE #: EXAM DATE: 06/28/2022 STATUS: DEP ER FAX #: RAD NO: DC Dt: PAGE 2 Signed ReportTROPONIN I [id number] 14:59:00 Test Item Value Reference Range Interpretation Comments TROPONIN I RAPID 0.02 NG/ML 0.00-0.08 N 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) EC - The use of serial sampling and te sting protocol is a recommended pra ctice.- An elevated tro ponin level alone is often not sufficient for diagnosis of my ocardial infarction. CBC W/AUTO [id number] 14:52:00 Test Item Value Reference Range Interpretation Comments WHITE BLOOD CELL 11.50 x10 4.80-10.80 H (test code = WBC) 3/uL RED BLOOD CELL (test 5.65 x10 6/uL 4.7-6.1 N code = RBC) HEMOGLOBIN (test code 15.5 G/DL 14.0-17.0 N = HGB) HEMATOCRIT (test code 47.5 % 42-52 N = HCT) MEAN CELL VOLUME 84.1 FL 80-94 N (test code = MCV) MEAN CELL HGB (test 27.4 PG 27-31 N code = MCH) MEAN CELL HGB 32.6 G/DL 33-37 L CONCENTRATION (test code = MCHC) RED CELL DISTRIBUTION 13.1 % 11.5-14.5 N WIDTH (test code = RDW) PLATELET COUNT (test 227 x10 3/uL 150-450 N code = PLT) MEAN PLATELET VOLUME 10.7 FL 7.4-10.4 H (test code = MPV) NEUTROPHIL % (test 69.3 % 42-86 N code = NT%) LYMPHOCYTE % (test 24.5 % 24-44 N code = LY%) MIXED % (test code = 6.2 % MIXED P ERCENTAGE AND MX%) ABSOLUTE INCLUD E MONOCYTE, BASOP HIL ANDEOSINOPHIL COUNTS. NEUTROPHIL # (test 8.00 x10 3/uL 1.8-7.7 H code = NT#) LYMPHOCYTE # (test 2.80 x10 3/uL 1.0-4.8 N code = LY#) MIXED # (test code = 0.7 k/mm3 MIXED P ERCENTAGE AND MX#) ABSOLUTE INCLUD E MONOCYTE, BASOP HIL ANDEOSINOPHIL COUNTS. Notes Date/Time Note Provider Source 2022-06-28 14:40:00-00:00 [facility] ([facility]) OR A CAMP[facility] OF [facility] EMERGENCY PROVIDER REPORT REPORT#:[id number] REPORT STATUS: Signed DATE:06/28/22 TIME: 1439 PATIENT: JD COOMBS UNIT #: [id number] ROOM/BED: AGE: 52 SEX: M PCP PHYS: Undefined Provider SERVICE AUTHOR: Germania Kirkpatrick APR STUNT MAN * ALL edits or amendments must be made on the el [employer]/computer document * Germania Kirkpatrick 06/28/22 1440: HPI-Abd Pain M 40 and Over Free Text HPI Notes Free Text HPI Notes 52-year-old, obese male with a history of hypert ension, sleep apnea and dyslipidemia arrives to the emergency department stating that he had bloating on Monday with nonradiating lower abdominal pain an d nausea accompanied with burping. States notes that on Monday he did no abbe that he was having diarrhea which has increased over the last 24 ho urs. Patient states diarrhea x10 over the last 24 hours. Denies any chest sarabjit n or shortness of breath. For his history of hypertension he does take lisinopril 20 mg but has not taken this today due to the fact that h e felt this would just go straight through him with a history of diarrhea. Denies any bloody stool o r vomiting. General Confirmed Patient Yes Initial Greet Date/Time 06/28/221426 Presentation Chief Complaint Abdominal pain, Diarrhea moderat e Hx Obtained From Patient Sudden in Onset? No Risk-Abd Pain M 40 and Over )( Abdominal Aortic Aneurysm Risk factors review ed Review of Systems Free Text ROS Notes Free Text ROS Notes CONSTITUTIONAL: No fever, fatigue or weight loss . SKIN: No rash. HENT: No congestion, ear pain, or sore throat. EYES: No recent vision problems or eye pain. ENDOCRINE: No thyroid problems. No polyuria or p olydipsia. CARDIOVASCULAR: No chest pain or edema. RESPIRATORY: No cough, shortness of breath, dana estion, or wheezing. GASTROINTESTINAL: No vomiting, bloody stools or diarrhea. GENITOURINARY: No dysuria. MUSCULOSKELETAL: No joint pain or swelling. LYMPHATIC: No swollen glands. NEUROLOGIC: No seizures. No headache, focal weak ness or sensory changes. HEMATOLOGIC: No unusual bruising or bleeding. PSYCHIATRIC: No depression or anxiety. Past Medical History - Adult Stated Complaint ABDOMINAL PAIN Allergies Coded Allergies: Penicillins (UNKNOWN 06/28/22) Review of Nursing Notes Rev avail, and agree Additional Medical History Hypertension, sleep apnea, dyslipidemia Physical Exam Vital Signs Vital Signs First Documented: Result Date Time Pulse Ox 97 06/28 1425 B/P 189/107 06/28 1425 B/P Mean 134 06/28 1425 O2 Delivery Room air 06/28 1425 Temp 98.7 06/28 1425 Pulse 99 06/28 1425 Resp 16 06/28 1425 Last Documented: Result Date Time Pulse Ox 95 06/28 1709 B/P 168/90 06/28 1709 B/P Mean 116 06/28 1709 Pulse 83 06/28 1709 Resp 16 06/28 1709 O2 Delivery Room air 06/28 1425 Temp 98.7 06/28 1425 Review of Vital Signs Reviewed Free Text PE Notes Free Text PE Notes GENERAL: No acute distress, non-toxic appearance . HEAD: Normal with no signs of head trauma. EYES: PERRLA, EOMI, conjunctiva normal, no disch arge. EARS: Hearing grossly intact. NOSE: Normal. THROAT: Oropharynx is normal. NECK: Normal range of motion, no tenderness, sup ple, no lymphadenopathy, No adenopathy, no JVD. CHEST: Clear breath sounds bilaterally. No wheez es, rales, or rhonchi. CARDIAC: Regular rate and rh ythm. S1 and S2, without murmurs, gallops, or rubs. VASCULAR: No Edema. Peripheral pulses normal and equal in all extremities. ABDOMEN: Normal and soft with no tenderness, no masses or pulsatile masses. GASTROINTESTINAL: Bowel sounds normal GENITOURINARY: Normal, No tenderness LYMPATHTIC: No lymphadenopathy noted. MUSCULOSKELETAL: Good range of motion of all major joints. Extremities without clubbing, cyanosis or edema. NEUROLOGICAL: Alert and oriented x 3. No focal s ensory or strength deficits. Speech normal. Follows commands appropriately. PSYCHIATRIC: Normal Affect, judgement and mood. SKIN: Normal appearance with no rashes or lesion s. Interpretation Diagnostics Lab Results Interpretation Results Laboratory Tests 06/28/22 1448: [Embedded Image Not Available] 06/28/22 1442: [Embedded Image Not Available] Laboratory Tests: 06/28 06/28 06/28 1620 1448 1443 Chemistry Magnesium (1.8 - 2.4 MG/DL) 2.1 Rapid Troponin I (0.00 - 0.08 NG/ML) 0.02 Lipase (73 - 393 Units/L) 118 Hematology WBC (4.80 - 10.80 x10 3/uL) 11.50 H RBC (4.7 - 6.1 x10 6/uL) 5.65 Hgb (14.0 - 17.0 G/DL) 15.5 Hct (42 - 52 %) 47.5 MCV (80 - 94 FL) 84.1 MCH (27 - 31 PG) 27.4 MCHC (33 - 37 G/DL) 32.6 L RDW Coeff of Rosa Elena (11.5 - 14.5 %) 13.1 Plt Count (150 - 450 x10 3/uL) 227 MPV (7.4 - 10.4 FL) 10.7 H Neut % (Auto) (42 - 86 %) 69.3 Lymph % (Auto) (24 - 44 %) 24.5 Mixed Cells % (Auto) (%) 6.2 Mixed Cells # (k/mm3) 0.7 Absolute Neuts (auto) (1.8 - 7.7 x10 3/uL) 8.00 H Absolute Lymphs (auto) (1.0 - 4.8 x10 3/uL) 2.8 0 Urines Ur Spec Description Clean Catch Urine Color (YELLOW) Yellow Urine Appearance (CLEAR) CLEAR Urine pH (5.5 - 7.0) 6.0 Ur Specific [place] (1.001 - 1.035) 1.010 Urine Protein (NEGATIVE mg/dL) NEGATIVE Urine Glucose (UA) (NEGATIVE mg/dL) NEGATIVE Urine Ketones (NEGATIVE mg/dL) NEGATIVE Urine Blood (NEGATIVE) TRACE Urine Nitrite (NEGATIVE) NEGATIVE Urine Bilirubin (NEGATIVE) NEGATIVE Urine Urobilinogen (NORMAL mg/dL) 1.0 Ur Leukocyte Esterase (NEGATIVE) NEGATIVE Urine Comment VOLUME 10-12 ML 06/28 1442 Chemistry Sodium (133 - 145 MMOL/L) 144 Potassium (3.6 - 5.2 MMOL/L) 5.1 Chloride (100 - 108 MMOL/L) 106 Carbon Dioxide (22 - 32 MMOL/L) 29 BUN (6 - 20 MG/DL) 17 Creatinine (0.60 - 1.00 MG/DL) 1.00 Estimated GFR (MDRD) (56 - 130) 90 Glucose (65 - 99 MG/DL) 103 H Calcium (8.7 - 10.5 MG/DL) 10.4 Total Bilirubin (0.0 - 1.0 MG/DL) 0.9 AST (15 - 37 Units/L) 50 H ALT (30 - 65 Units/L) 63 Alkaline Phosphatase (50 - 136 Units/L) 149 H Total Protein (6.4 - 8.2 G/DL) 7.9 Albumin (3.4 - 5.0 G/DL) 4.3 Recent Impressions: CAT SCAN - CT ABD PELVIS W/CONT 06/28 1520 Report Impression - Status: SIGNED Entered: 06/28/2022 1602 IMPRESSION: 1. Mild nonspecific stranding along the root of the mesentery. Consider possibility of mesenteritis. Impression By: [email or web address] - Elias Rogers MD Re-Evaluation MDM Free Text MDM Notes Free Text MDM Notes Patient to be treated today for mesenteric adeni tis via CT scan results. He does have pain located to the lower aspe ct of his right and left quadrant as a "burning" sensation. Diarrhea approximately x10 without any vomiting. Complains of some continued nausea therefore hubert l be provided with antiemetic for home use. NSAIDs provided for anti-inflammat ory purposes, discussed risks such as bowel obstruction and when to re turn to the emergency room. Encouraged to follow with primary care provider or local [facility] center, resources provided at time of discharg e. Patient verbalizes understanding, agrees to plan of care and discharge )( Re-Evaluation/Progress #1 )( Re-Eval Status Improved Re-Eval Abdomen Soft, Non-tender, No guarding, N o rebound Abd Pain MDM Note M > 40 The patient is resting comfortably and feels bet ter, is alert and in no distress. The repeat examination is unremarkable and benign; in particular, there is no discomfort at McBurney's poi nt and there is no pulsatile mass. The history, exam, diagnostic testing, and current c ondition do not suggest acute appendicitis, bowel obstruction, acute c holecystitis, bowel perforation, major gastrointestinal bleeding, severe diverticulitis , abdominal aortic aneurysm, mesenteric ischemia, volvulu s, sepsis, or other significant pathology to warrant further testing, continued ED treatment, admissi on, or surgical evaluation at this point. The vital signs have been stable. Th e patient does not have uncontrollable pain, intractable vomiting, or ot her significant symptoms. The patient's condition is stable and approp riate for discharge from the emergency department. The patient will pursue further outp atient evaluation with the primary care physician or ot her designated or consulting physician as indicated in the discharge instructions. ED Course Medication(s) Ordered Medication(s) Ordered: Autonomic Drugs Sig/Benja Start time Last Medication Dose Route Stop Time Status Admin Hyoscyamine Sulfate 0.125 MG X1ED STA 06/28 143 6 DC 06/28 SL 06/28 1437 1448 Cardiovascular Drugs Sig/Benja Start time Last Medication Dose Route Stop Time Status Admin Metoprolol Tartrate 25 MG X1ED STA 04/04 1440 D C / PO 04 1441 1448 Central Nervous System Agents Sig/Bneja Start time Last Medication Dose Route Stop Time Status Admin Ketorolac 30 MG X1ED STA 06/28 1724 DC 06/28 Tromethamine IV 06/28 1725 1742 Diagnostic Agents Sig/Benja Start time Last Medication Dose Route Stop Time Status Admin Iopamidol 0 .STK-MED ONE 06/28 1507 DC 06/28 IV 1518 Electrolytic, Caloric, And Ismael Sig/Benja Start time Last Medication Dose Route Stop Time Status Admin Sodium Chloride 1,000 ML X1ED STA 06/28 1436 DC 06/28 IV 06/28 1535 1447 Gastrointestinal Drugs Sig/Benja Start time Last Medication Dose Route Stop Time Status Admin Ondansetron HCl 4 MG ONCE PRN 06/28 1440 DC IV 1448 Patient Discharge Departure Vital Signs/Condition Vital Signs First Documented: Result Date Time Pulse Ox 97 06/28 1425 B/P 189/107 06/28 1425 B/P Mean 134 06/28 1425 O2 Delivery Room air 06/28 1425 Temp 98.7 04 1425 Pulse 99 04/ 1425 Resp 16 04/ 1425 Last Documented: Result Date Time Pulse Ox 95 06/28 1709 B/P 168/90 04 1709 B/P Mean 116 04 1709 Pulse 83 04/ 1709 Resp 16 04/04 1709 O2 Delivery Room air 06/28 1425 Temp 98.7 04 1425 All vital signs available at the time of this en try have been reviewed. Condition Stable Clinical Impression Clinical Impression Primary Impression: Mesenteric adenitis Time of Impression 1727 Disposition Decision Discharge )( Discharged to Home Yes )( Time 172 )( Date 06/28/22 Discharge/Care Plan Counseled Regarding Diagnosi s, Imaging studies, Prescriptions, Need for follow- up, When to return to ED (Auto) Prescriptions Current Visit Scripts KETOROLAC (TORADOL) 10 MG PO Q6H PRN PRN PAIN KETOROLAC (TORADOL) 10 MG PO Q6H PRN PRN PAIN # 20 TABS Prescriptions Reviewed Risks, Benefits, Alternat balaji treatment Patient Instructions ED Adenitis, Mesenteric Additional Instructions Take your anti-inflammatories as prescribed. Follow up: Please follow-up with your primary care doctor in the next 1-2 days. Please call tomorrow for an appointment. If you cannot follow-up with your primary care doctor please return to the ED for any urgent issues. Instructions: If you have an y worsening of symptoms or any other concerns please return to the ED immediately. Please continue taking your home medications as directed. If you were given any prescr iptions, please take them as directed. Do not drive or operate heavy machinery while taking narcotic medications. Do not drink alcohol while taking antibiotics or narcotics. Keep in mind that all X-Rays, CT's, MRI' s and Ultrasounds read after hours may be over-read the following day by the staff radi ologist DO NOT DRIVE AFTER TAKING NARCOTICS, SEDATIVES, OR OTHER MEDICATIONS THAT MAY CAUSE SEDATION. RETURN TO THE EMERGENCY DEPARTMENT NEEDED FOR WORSENING SYMPTOMS. THANK YOU [place]OS[place] [facility] [place]. LUBA ROWAN EDITH CON BALLARD DOCTOR PARA VERLO E N 1 A 2 STILES. SI EMPEORAN BEN SINTOMAS REGRESE A LA EMERGENCIA. CIRA POR WYATT GIR EL [facility] PARA BALLARD NECESIDADES DE LA EMERGENCIA. CLINICS: [facility] - [phone] [address] [place] [address] [facility] - [phone] [address] [place] [address] DENTAL CLINIC: [id number] (MUST ARRANGE NUECES AIDE FIRST) [phone] [facility] [place] D[facility] CLINIC: [id number] [address] (THANIA OLGUIN) OPEN EVERY MONDAY - [phone] [facility]: [address] [facility] [place], [place] [phone] IF YOU HAVE NO INSURANCE AND LIVE IN [facility], YOU MAY QUALIFY FOR A NUECES AIDE CARE. CALL TO SIGN UP AND/OR CALL FOR A LIST OF REQUIREMENTS. FOR SCHEDULING APPOINTMENTS CALL . IF YOU LIVE IN [facility] AND DO NOT CHRIS LIFY FOR NUECES AIDE, CONTACT [facility]: [address], [address], [place], [place] [phone] IF YOU LIVE IN [facility] AND HAVE NO INSURANCE, YOU MAY BE ABLE TO BE SEEN AT THE [facility] HEALTH DEPARTMENT LOCATED AT [address] [place], [place]. CALL [phone] TO SEE IF YOU QUAL ITY AND/OR TO SCHEDULE AN APPOINTMENT. [facility]: [address], [address], [place], [place] [facility]: [address], [address], [place], [place] [facility]: [address], [place] [phone] [facility]: [address] [place], [place]: [address], [place]: [address] [facility], [address], [place], [place] Discharge Note I have spoken with the patie nt and/or caregivers. I have explained the patient's condition, diagnoses and luba atment plan based on the information available to me at this time. I have answered the patient's and/ or caregiver's questions and addressed any concerns. The patient and/or careg eliel have as good an understanding of the patient 's diagnosis, condition and treatment plan as can be expected at this point. The vital signs have bee n stable. The patient's condition is stable and appr opriate for discharge from the emergency department. The patient will pursue further outpatient evalu ation with the primary care physician or other designated or consulting phys ician as outlined in the discharge instructions. The patient and/or caregivers are agreeable to this plan of care and follow-up instructions have been exp lained in detail. The patient and/or caregivers have received these instructio ns in written format and have expressed an understanding of the discharge inst ructions. The patient and/or caregivers are aware that any significant change in condition or worsening of symptoms should prompt an immediate return to [facility] or the closest emergency department or a call to 911. Emiliano Murray 06/30/22 1031: Patient Discharge Departure Supervising Physician Note MidLv Saw Pt Alone I have reviewed the PA/ENROLLED AGENT's note and plan of car e. I was available for consultation as needed at al l times during the patient's visit in the emergency department. I agree with the clinical impression , plan and disposition. at 1747 at 1038 RPT #:[id number] END OF REPORT
[2022-09-25 21:04] LABS: MCV 82.3 fL (80-100); MPV 8.6 fL (7.6-11.3); RBC Red Blood Cell Count 5.11 M/uL (4.33-5.43)
[2022-09-25] MEDS ORDERED: ONDANSETRON 4 MG/2 ML VIAL ONE (21:09)
[2022-09-25] MEDS ORDERED: FENTANYL CITR 100 MCG/2 ML ONE (21:09)
[2022-09-25] MEDS ORDERED: NA CHLORIDE 0.9% 1,000 ML ONE (21:10)
[2022-09-25] MEDS ORDERED: FAMOTIDINE 20 MG/2 ML VIAL IV ONE (21:10)
--- NOTE | 2022-09-25 21:11 | RAD REPORT ---
EXAM DESCRIPTION: [place] Single View09/25/2022 9:02 pm CLINICAL HISTORY: Abdominal pain COMPARISON: 2020 FINDINGS: The lungs appear clear of acute infiltrate. The heart is normal size IMPRESSION: No acute abnormalities displayed
--- NOTE | 2022-09-25 21:28 | RAD REPORT ---
EXAM DESCRIPTION: US - Abdomen Exam Limited - 09/25/2022 9:20 pm CLINICAL HISTORY: Abdominal pain. COMPARISON: None. FINDINGS: Examination is somewhat limited as the patient was not NPO so the gallbladder is somewhat contracted. The gallbladder wall is not thickened. A gallstone is not seen. 6 millimeter gallbladder polyp The biliary tree is normal caliber. IMPRESSION: 6 millimeter gallbladder polyp. Follow-up ultrasound 1 year recommended to assess stabil ity
[2022-09-25 22:11] LABS: ALT/SGPT 92 U/L (16-61); Albumin 3.4 g/dL (3.4-5.0); Alkaline Phosphatase 148 U/L (45-117); BUN Blood Urea Nitrogen 17 mg/dL (7-18); Bicarbonate 27 mEq/L (21-32); Bilirubin Total 0.4 mg/dL (0.2-1.0); Glomerular Filtration Rate 93 ml/min (=/>90); Glucose Level 145 mg/dL (74-106); Lipase 46 U/L (13-75); NT PRO-BNP 18 pg/mL (<125); Protein, Total 6.8 g/dL (6.4-8.2); Sodium Level 138 mEq/L (136-145); Troponin High Sensitivity 15.2 pg/mL (<58.9)
[2022-09-25 22:13] LABS: AST/SGOT 41 U/L (15-37); Bilirubin Direct < 0.1 mg/dL (0-0.2); Bilirubin Indirect, Calculated ND mg/dL (0.2-0.8); Magnesium 2.3 mg/dL (1.6-2.4); Potassium 3.7 mEq/L (3.5-5.1)
--- NOTE | 2022-09-25 22:42 | RAD REPORT ---
EXAM DESCRIPTION: CT - Abdomen Pelvis W Contrast - 09/25/2022 10:25 pm CLINICAL HISTORY: Abdominal pain COMPARISON: none. TECHNIQUE: Computed axial tomography of the abdomen pelvis was obtained. 95 cc Isovue-300 was admini stered intravenously. Oral contrast was not requested which limits evaluation of bowel and appendix All CT scans are performed using dose optimization technique as appropriate and may include automated exposure control or mA/KV adjustment according to patient size. FINDINGS: Fatty liver Spleen, pancreas, adrenals and kidneys are unremarkable Normal appendix. No evidence diverticulitis. Mild stranding within central mesentery of abdomen Moderate left and small right inguinal hernias contain fat. Small umbilical hernia IMPRESSION: Fatty liver Mild stranding within central mesentery of abdomen may indicate a mesenteritis
[2022-09-25] MEDS ORDERED: CIPROFLOXACIN 400mg IV 400 MG/200 ML BAG IV ONE (23:31)
[2022-09-25] MEDS ORDERED: METRONIDAZOLE 500mg IVPB 500 MG/100 ML BAG IV ONE (23:31)
--- NOTE | 2022-09-26 | EDPHYS ---
Physician Documentation [facility] Name: Jd Devries Age: 52 yrs Sex: Male : 1970 Arrival Date: 09/25/2022 Time: 20:29 Bed 7 Private MD: ANGELICA Physician Elvis So HPI: 09/25 23:54 This 52 yrs old Male presents to ER via Ambulatory with complaints of hailey Abdominal Pain. 23:54 The patient presents with abdominal pain in the upper abdomen, in the lower abdomen, hailey abdominal distention in the epigastric area, in the upper abdomen. Onset: The symptoms/episode began/occurred 7 day(s) ago. The symptoms do not radiate. Associated signs and symptoms: Pertinent positives: nausea and vomiting. The symptoms are described as crampy. Modifying factors: The symptoms are alleviated by nothing, the symptoms are aggravated by food. Severity of pain: At its worst the pain was mild in the emergency department the pain is unchanged. The patient has experienced similar episodes in the past, multiple times. Historical: - Allergies: 20:55 PENICILLINS; kd3 - PMHx: 20:55 Arthritis; BPH; Depression/Anxiety; High Cholesterol; Hypertension; Sleep Apnea; kd3 - PSHx: 20:55 heart cath; kd3 - Immunization history:: Adult Immunizations up to date. - Social history:: Smoking status: unknown. - Family history:: not pertinent. ROS: 23:54 Constitutional: Negative for fever, chills, and weight loss, Eyes: Negative for injury, hailey pain, redness, and discharge, ENT: Negative for injury, pain, and discharge, Neck: Negative for injury, pain, and swelling, Cardiovascular: Negative for chest pain, palpitations, and edema, Respiratory: Negative for shortness of breath, cough, wheezing, and pleuritic chest pain, Back: Negative for injury and pain, : Negative for injury, bleeding, discharge, and swelling, MS/Extremity: Negative for injury and deformity, Skin: Negative for injury, rash, and discoloration, Neuro: Negative for headache, weakness, numbness, tingling, and seizure, Psych: Negative for depression, anxiety, suicide ideation, homicidal ideation, and hallucinations, Allergy/Immunology: Negative for hives, rash, and allergies, Endocrine: Negative for neck swelling, polydipsia, polyuria, polyphagia, and marked weight changes, Hematologic/Lymphatic: Negative for swollen nodes, abnormal bleeding, and unusual bruising. 23:54 Abdomen/GI: Positive for 23:54 Abdomen/GI: Positive for abdominal pain, constipation, abdominal cramps. Exam: 23:54 Constitutional: This is a well developed, well nourished patient who is awake, alert, hailey and in no acute distress. Head/Face: Normocephalic, atraumatic. Eyes: Pupils equal round and reactive to light, extra-ocular motions intact. Lids and lashes normal. Conjunctiva and sclera are non-icteric and not injected. Cornea within normal limits. Periorbital areas with no swelling, redness, or edema. ENT: Nares patent. No nasal discharge, no septal abnormalities noted. Tympanic membranes are normal and external auditory canals are clear. Oropharynx with no redness, swelling, or masses, exudates, or evidence of obstruction, uvula midline. Mucous membranes moist. Neck: Trachea midline, no thyromegaly or masses palpated, and no cervical lymphadenopathy. Supple, full range of motion without nuchal rigidity, or vertebral point tenderness. No Meningismus. Chest/axilla: Normal chest wall appearance and motion. Nontender with no deformity. No lesions are appreciated. Cardiovascular: Regular rate and rhythm with a normal S1 and S2. No gallops, murmurs, or rubs. Normal PMI, no JVD. No pulse deficits. Respiratory: Lungs have equal breath sounds bilaterally, clear to auscultation and percussion. No rales, rhonchi or wheezes noted. No increased work of breathing, no retractions or nasal flaring. Abdomen/GI: Soft, non-tender, with normal bowel sounds. No distension or tympany. No guarding or rebound. No evidence of tenderness throughout. Back: No spinal tenderness. No costovertebral tenderness. Full range of motion. Male : Normal genitalia with no discharge or lesions. Skin: Warm, dry with normal turgor. Normal color with no rashes, no lesions, and no evidence of cellulitis. MS/ Extremity: Pulses equal, no cyanosis. Neurovascular intact. Full, normal range of motion. Neuro: Awake and alert, GCS 15, oriented to person, place, time, and situation. Cranial nerves II-XII grossly intact. Motor strength 5/5 in all extremities. Sensory grossly intact. Cerebellar exam normal. Normal gait. Psych: Awake, alert, with orientation to person, place and time. Behavior, mood, and affect are within normal limits. 23:54 ECG was reviewed by the Attending Physician. Vital Signs: 20:52 BP 178 / 82; Pulse 84; Resp 16; Temp 98.6(O); Pulse Ox 97% on R/A; Weight 156.94 kg; kd3 Height 5 ft. 10 in. ; 22:00 BP 169 / 100; Pulse 76; Resp 21; Pulse Ox 96% on R/A; ll3 22:55 BP 165 / 87; Pulse 74; Resp 20; Pulse Ox 96% on R/A; ll3 09/26 00:00 BP 160 / 88; Pulse 72; Resp 20; Pulse Ox 97% on R/A; ll3 01:00 BP 161 / 86; Pulse 69; Resp 20; Pulse Ox 96% on R/A; 3 09/25 20:52 Body Mass Index 49.65 (156.94 kg, 177.8 cm) kd3 MDM: 09/25 20:48 Patient medically screened. [facility] 09/25 20:53 Order name: Basic Metabolic Panel; Complete Time: 22:[address] [facility] 09/25 20:53 Order name: CBC with Diff; Complete Time: 22:[address] [facility] 09/25 20:53 Order name: LFT's; Complete Time: 22:[address] [facility] 09/25 20:53 Order name: Magnesium; Complete Time: 22:[address] [facility] 09/25 20:53 Order name: NT PRO-BNP; Complete Time: 22:[address] [facility] 09/25 20:53 Order name: PT-INR; Complete Time: 23:[address] [facility] 09/25 20:53 Order name: Troponin HS; Complete Time: 22:[address] [facility] 09/25 20:53 Order name: Lipase; Complete Time: 22:[address] [facility] 09/25 23:05 Order name: Lactate w/ 2H reflex if indic.; Complete Time: 23:[address] [facility] 09/25 20:53 Order name: XRAY Chest (1 view); Complete Time: 22:[address] [facility] 09/25 20:53 Order name: US Abdomen Limited; Complete Time: 22:[address] [facility] 09/25 20:53 Order name: CT Abd/Pelvis - IV Contrast Only; Complete Time: 23:[address] [facility] 09/25 20:53 Order name: EKG; Complete Time: 20:[address] [facility] 09/25 20:53 Order name: Cardiac monitoring; Complete Time: 20:[address] [facility] 09/25 20:53 Order name: EKG - Nurse/Tech; Complete Time: 21:[address] [facility] 09/25 20:53 Order name: IV Saline Lock; Complete Time: 20:[address] [facility] 09/25 20:53 Order name: Labs collected and sent; Complete Time: 20:[address] [facility] 09/25 20:53 Order name: O2 Per Protocol; Complete Time: : [facility] 09/25 20:53 Order name: O2 Sat Monitoring; Complete Time: 20:[address] [facility] EC:54 Rate is 77 beats/min. Rhythm is regular. QRS [place] is Normal. CT interval is normal. QRS hailey interval is normal. QT interval is normal. No Q waves. T waves are Normal. No ST changes noted. Clinical impression: NSR w/ Non-specific ST/T Changes and No evidence of ischemia. Interpreted by me. Reviewed by me. Administered Medications: 21:09 Drug: NS 0.9% IV 1000 ml Route: IV; Rate: 1 bolus; Site: right antecubital; ll3 09/26 00:05 Follow up: Response: No adverse reaction; IV Status: Completed infusion; IV Intake: rv 1000ml 09/25 21:09 Drug: Famotidine IVP 20 mg Route: IVP; Site: right antecubital; ll3 09/26 00:05 Follow up: Response: No adverse reaction; Marked relief of symptoms rv 09/25 21:09 Drug: fentaNYL (PF) IVP 50 mcg Route: IVP; Site: right antecubital; ll3 09/26 00:04 Follow up: Response: No adverse reaction; Marked relief of symptoms rv 09/25 21:09 Drug: Ondansetron IVP 4 mg Route: IVP; Site: right antecubital; ll3 09/26 00:04 Follow up: Response: No adverse reaction; Marked relief of symptoms rv 09/25 23:30 Drug: metroNIDAZOLE IVPB 500 mg Volume: 100 ml; Route: IVPB; Rate: 200 ml/hr; Infused ll3 Over: 30 mins; Site: right antecubital; 09/26 00:04 Follow up: Response: No adverse reaction; IV Status: Completed infusion; IV Intake: rv 100ml 00:00 Drug: Ciprofloxacin IVPB 400 mg Volume: 200 ml; Route: IVPB; Infused Over: 60 mins; rv Site: right antecubital; 01:25 Follow up: Response: No adverse reaction; IV Status: Completed infusion; IV Intake: ll3 200ml Disposition Summary: 09/25/22 23:59 Discharge Ordered Location: Home [facility] Problem: new hailey Symptoms: have improved hailey Condition: Stable hailey Diagnosis - Abdominal pain, Generalized - Mesenteritis hailey - Morbid (severe) obesity due to excess calories [facility] Followup: hailey - With: Private Physician - When: 2 - 3 days - Reason: Recheck today's complaints, Continuance of care, Re-evaluation by your physician Followup: hailey - With: Sabas Barros MD - When: 2 - 3 days - Reason: Recheck today's complaints, Re-evaluation by your physician Discharge Instructions: - Discharge Summary Sheet hailey - Abdominal Pain, Adult hailey - Obesity, Adult hailey - Abdominal Pain, Adult, [id number] [facility] Forms: - Medication Reconciliation Form [facility] - Thank You Letter [facility] - Antibiotic Education [facility] - Prescription Opioid Use [facility] - [email or web address] [facility] - Work release form ll3 Prescriptions: - Flagyl 500 mg Oral Tablet - take 1 tablet by ORAL route every 8 hours for 10 days; 30 tablet; Refills: 0, [facility] Product Selection Permitted - Pepcid 20 mg Oral Tablet - take 1 tablet by ORAL route every 12 hours for 21 days; 42 tablet; Refills: 0, [facility] Product Selection Permitted - Zofran 4 mg Oral Tablet - take 1 tablet by ORAL route every 12 hours As needed; 20 tablet; Refills: 0, [facility] Product Selection Permitted - Cipro 500 mg Oral Tablet - take 1 tablet by ORAL route every 12 hours for 7 days; 14 tablet; Refills: 0, [facility] Product Selection Permitted - dicyclomine 20 mg Oral Tablet - take 1 tablet by ORAL route 4 times per day; 28 tablet; Refills: 0, Product [facility] Selection Permitted Signatures: Dispatcher [employer] Elvis Connolly MD MD cha Vicente, Ronaldo RN RN rv Bridgette Guillaume RN RN ll3 Debbie Alfaro RN RN kd3
--- NOTE | 2022-09-26 | ER ---
Nurse's Notes [facility] Name: Jd Devries Age: 52 yrs Sex: Male : 1970 Arrival Date: 09/25/2022 Time: 20:29 Bed 7 Private MD: Diagnosis: Abdominal pain, Generalized-Mesenteritis;Morbid (severe) obesity due to excess calories Presentation: 09/25 20:52 Chief complaint: Patient states: I HAVE BEEN HAVING ABDOMINAL PAIN FOR A FEW MONTHS. kd3 THE PAST COUPLE OF DAYS I HAVE HAD DIARRHEA WITH NAUSEA AND NO VOMITING. IT HURTS IN THE LEFT UPPER QUADRANT AT ABOUT AN 8 OUT OF 10. Coronavirus screen: Vaccine status: Patient reports receiving the 2nd dose of the covid vaccine. Ebola Screen: No symptoms or risks identified at this time. Initial Sepsis Screen: Does the patient meet any 2 criteria? No. Patient's initial sepsis screen is negative. Does the patient have a suspected source of infection? No. Patient's initial sepsis screen is negative. Risk Assessment: Do you want to hurt yourself or someone else? Patient reports no desire to harm self or others. Onset of symptoms was September 25, 2022. 20:52 Method Of Arrival: Ambulatory kd3 20:52 Acuity: PARRIS 3 kd3 Triage Assessment: 20:55 General: Appears uncomfortable, Behavior is calm, cooperative. Pain: Complains of pain kd3 in left upper quadrant. GI: Abdomen is obese. Historical: - Allergies: 20:55 PENICILLINS; kd3 - PMHx: 20:55 Arthritis; BPH; Depression/Anxiety; High Cholesterol; Hypertension; Sleep Apnea; kd3 - PSHx: 20:55 heart cath; kd3 - Immunization history:: Adult Immunizations up to date. - Social history:: Smoking status: unknown. - Family history:: not pertinent. Screenin:00 [facility] ED Fall Risk Assessment (Adult) History of falling in the last 3 months, rv including since admission No falls in past 3 months (0 pts) Confusion or Disorientation No (0 pts) Intoxicated or Sedated No (0 pts) Impaired Gait No (0 pts) Mobility Assist Device Used No (0 pt) Altered Elimination No (0 pt) Score/Fall Risk Level 0 - 2 = Low Risk Oriented to surroundings, Maintained a safe environment, Educated pt \T\ family on fall prevention, incl call for assistance when getting out of bed, Assessed \T\ reinforced patient's understanding of fall precautions, Provided non-skid footwear, Hourly rounding (assess needs \T\ fall precautionary measures) done, Used ambulatory aids as needed (educated on \T\ assisted with), Used gait belt as appropriate. Abuse screen: Denies threats or abuse. Denies injuries from another. Nutritional screening: No deficits noted. Tuberculosis screening: No symptoms or risk factors identified. Assessment: 21:00 General: Appears uncomfortable, Behavior is calm, cooperative. Pain: Complains of pain ll3 in left upper quadrant Pain radiates to abdomen Pain currently is 7 out of 10 on a pain scale. Pain began 3 months ago, states got worse today. GI: Abdomen is round distended, Stools are reported to be loose, Bowel sounds present X 4 quads. Abd is soft and non tender X 4 quads. Reports lower abdominal pain, upper abdominal pain, diarrhea, nausea, vomiting. Derm: Skin is pink, warm \T\ dry. 09/26 00:19 Reassessment: D/c pending antibiotic infusion completion. ll3 Vital Signs: 09/25 20:52 BP 178 / 82; Pulse 84; Resp 16; Temp 98.6(O); Pulse Ox 97% on R/A; Weight 156.94 kg; kd3 Height 5 ft. 10 in. ; 22:00 BP 169 / 100; Pulse 76; Resp 21; Pulse Ox 96% on R/A; ll3 22:55 BP 165 / 87; Pulse 74; Resp 20; Pulse Ox 96% on R/A; ll3 09/26 00:00 BP 160 / 88; Pulse 72; Resp 20; Pulse Ox 97% on R/A; ll3 01:00 BP 161 / 86; Pulse 69; Resp 20; Pulse Ox 96% on R/A; ll3 09/25 20:52 Body Mass Index 49.65 (156.94 kg, 177.8 cm) kd3 ED Course: 09/25 20:32 Patient arrived in ED. kj1 20:48 Elvis So MD is Attending Physician. hailey 20:55 Triage completed. kd3 20:55 Arm band placed on right wrist. kd3 20:55 Inserted saline lock: 20 gauge in right antecubital area, using aseptic technique. rv Blood collected. 20:59 Basic Metabolic Panel Sent. rv 20:59 CBC with Diff Sent. rv 20:59 LFT's Sent. rv 20:59 Magnesium Sent. rv 20:59 NT PRO-BNP Sent. rv 20:59 PT-INR Sent. rv 20:59 Troponin HS Sent. rv 21:03 XRAY Chest (1 view) In Process Unspecified. EDMS 21:22 US Abdomen Limited In Process Unspecified. EDMS 22:27 CT Abd/Pelvis - IV Contrast Only In Process Unspecified. EDMS 22:58 Patient has correct armband on for positive identification. Bed in low position. Call ll3 light in reach. Side rails up X 1. Adult w/ patient. 23:58 Sabas Barros MD is Referral Physician. [facility] 09/26 00:04 Vincent Bolanos RN is Primary Nurse. rv 01:25 No provider procedures requiring assistance completed. IV discontinued, intact, ll3 bleeding controlled, No redness/swelling at site. Pressure dressing applied. Administered Medications: 09/25 21:09 Drug: NS 0.9% IV 1000 ml Route: IV; Rate: 1 bolus; Site: right antecubital; ll3 09/26 00:05 Follow up: Response: No adverse reaction; IV Status: Completed infusion; IV Intake: rv 1000ml 09/25 21:09 Drug: Famotidine IVP 20 mg Route: IVP; Site: right antecubital; ll3 09/26 00:05 Follow up: Response: No adverse reaction; Marked relief of symptoms 09/25 21:09 Drug: fentaNYL (PF) IVP 50 mcg Route: IVP; Site: right antecubital; ll3 09/26 00:04 Follow up: Response: No adverse reaction; Marked relief of symptoms 09/25 21:09 Drug: Ondansetron IVP 4 mg Route: IVP; Site: right antecubital; ll3 09/26 00:04 Follow up: Response: No adverse reaction; Marked relief of symptoms 09/25 23:30 Drug: metroNIDAZOLE IVPB 500 mg Volume: 100 ml; Route: IVPB; Rate: 200 ml/hr; Infused ll3 Over: 30 mins; Site: right antecubital; 09/26 00:04 Follow up: Response: No adverse reaction; IV Status: Completed infusion; IV Intake: rv 100ml 00:00 Drug: Ciprofloxacin IVPB 400 mg Volume: 200 ml; Route: IVPB; Infused Over: 60 mins; rv Site: right antecubital; 01:25 Follow up: Response: No adverse reaction; IV Status: Completed infusion; IV Intake: ll3 200ml Medication: 01:26 VIS not applicable for this client. ll3 Intake: 00:04 IV: 100ml; Total: 100ml. rv 00:05 IV: 1000ml; Total: 1100ml. rv 01:25 IV: 200ml; Total: 1300ml. ll3 Outcome: 09/25 23:59 Discharge ordered by . hailey 09/26 01:25 Discharged to home ambulatory, with family. ll3 Condition: stable Discharge instructions given to patient, Instructed on discharge instructions, follow up and referral plans. medication usage, Demonstrated understanding of instructions, follow-up care, medications, Prescriptions given X 5 01:27 Patient left the ED. ll3 Signatures: Dispatcher [employer] EDIL Elvis So MD MD cha Vicente, Ronaldo RN RN Lian Ordonez1 Bridgette Guillaume RN RN ll3 Debbie Alfaro RN RN kd3
[2022-09-26 02:30] VITALS: TEMP 98.6
[2022-09-26 02:37] VITALS: BP 161/86; O2SAT 96
--- NOTE | 2022-09-26 19:30 | EKG ---
Test Date: 2022-09-25 Test Time: 21:08:07 [id number] Technical Lead: RV MEASUREMENT RESULTS: Intervals: Rate: 77 TX: 168 QRSD: 90 QT: 386 QTc: 436 Garrett: P: 34 TX: 168 QRS: 20 T: 74 INTERPRETIVE STATEMENTS: Normal sinus rhythm Normal ECG Compared to ECG 10/26/2020 12:55:16 No significant changes Electronically Signed On 09-26-22 19:28:49 CDT by Zachary Martin
== END 2022-09-26 01:27 | disposition home or self-care (01) ==
LOC: ER 20:29
DX: K65.4 Sclerosing mesenteritis (principal); E66.01 Morbid (severe) obesity due to excess calories; Z68.42 Body mass index [BMI] 45.0-49.9, adult; Z88.0 Allergy status to penicillin
CPT/HCPCS: 96365; 96361; 93005; 85025; 80048; 36415; 83735; 85610; 80076; 83605; 84484; 83690; 83880; 74177; 71045; 76705; 96375; 99284; Q9967; J3010; J2405; J0744; J7030

== ENCOUNTER 2022-11-03 08:40 | Day surgery (SDC) | payer OTHER ==
[2022-11-03 09:05] LABS: Potassium 4.2 mEq/L (3.5-5.1)
[2022-11-03] MEDS ORDERED: Ringers Lactate 1,000 ML IV ONE (09:19)
[2022-11-03] MEDS ORDERED: LIDOCAINE 1% MPF 30 ML VIAL ONE (10:51)
[2022-11-03] MEDS ORDERED: propofoL 200 MG/20 ML VIAL IV ONE ×4 (10:51→11:45)
[2022-11-03] MEDS ORDERED: SUCCINYLCHOLINE 20 MG/ML (10 ML) IV ONE (11:02)
[2022-11-03] MEDS ORDERED: MIDAZOLAM HCL 2 MG/2 ML INJ ONE (11:09)
[2022-11-03] MEDS ORDERED: SIMETHICONE 40 MG/ 0.6 ML ONE (11:12)
[2022-11-03 15:50] VITALS: BP 105/66; TEMP 97; O2SAT 98
== END 2022-11-03 13:04 | disposition home or self-care (01) ==
LOC: OR 08:40
PROVIDERS: ATTEND Surgery
PROC: 0DB78ZX Excision of Stomach, Pylorus, Via Natural or Artificial Opening Endoscopic, Diagnostic (ICD-10-PCS; 2022-11-03)
PROC: 0DB68ZX Excision of Stomach, Via Natural or Artificial Opening Endoscopic, Diagnostic (ICD-10-PCS; 2022-11-03)
PROC: 0DB58ZX Excision of Esophagus, Via Natural or Artificial Opening Endoscopic, Diagnostic (ICD-10-PCS; 2022-11-03)
PROC: 0DJD8ZZ Inspection of Lower Intestinal Tract, Via Natural or Artificial Opening Endoscopic (ICD-10-PCS; principal; 2022-11-03 11:45)
PROC: 0DB98ZX Excision of Duodenum, Via Natural or Artificial Opening Endoscopic, Diagnostic (ICD-10-PCS; 2022-11-03 11:45)
DX: Z12.11 Encounter for screening for malignant neoplasm of colon (principal); R10.9 Unspecified abdominal pain; K21.9 Gastro-esophageal reflux disease without esophagitis; K44.9 Diaphragmatic hernia without obstruction or gangrene; K25.3 Acute gastric ulcer without hemorrhage or perforation; K29.50 Unspecified chronic gastritis without bleeding; Z91.199 Patient's noncompliance with other medical treatment and regimen due to unspecified reason
CPT/HCPCS: 45378; 43239; 80048; 36415; 88312; 88305; J2704 ×3; J2001; J2250; J7120; 88304

== ENCOUNTER 2022-12-12 08:50 | Day surgery (SDC) | payer OTHER ==
[2022-12-12 09:12] LABS: Potassium 3.8 mEq/L (3.5-5.1)
[2022-12-12] MEDS ORDERED: Ringers Lactate 1,000 ML IV ONE (09:24)
[2022-12-12] MEDS ORDERED: LIDOCAINE 1% MPF 5 ML VIAL ONE (10:37)
[2022-12-12] MEDS ORDERED: propofoL 200 MG/20 ML VIAL IV ONE (10:37)
[2022-12-12 12:39] VITALS: O2SAT 98
[2022-12-12 12:40] VITALS: BP 143/85; TEMP 97.9
== END 2022-12-12 12:06 | disposition home or self-care (01) ==
LOC: OR 08:50
PROVIDERS: ATTEND Surgery
PROC: 0DJD8ZZ Inspection of Lower Intestinal Tract, Via Natural or Artificial Opening Endoscopic (ICD-10-PCS; principal; 2022-12-12 11:30)
DX: Z12.11 Encounter for screening for malignant neoplasm of colon (principal); Z91.199 Patient's noncompliance with other medical treatment and regimen due to unspecified reason; K64.8 Other hemorrhoids
CPT/HCPCS: 80048; 36415; 45378; J2704; J2001; J7120

== ENCOUNTER 2023-01-27 07:01 | Day surgery (SDC) | payer OTHER ==
[2023-01-27] MEDS: Ringers Lactate 1,000 ML IV ONE ×3 (07:44→07:53)
[2023-01-27] MEDS ORDERED: propofoL 200 MG/20 ML VIAL IV ONE (07:47)
[2023-01-27] MEDS ORDERED: LIDOCAINE 1% MPF 5 ML VIAL ONE (07:47)
[2023-01-27 08:52] VITALS: BP 109/51; O2SAT 96
[2023-01-27 08:53] VITALS: TEMP 98.2
== END 2023-01-27 08:54 | disposition home or self-care (01) ==
LOC: OR 07:01
PROVIDERS: ATTEND Surgery
PROC: 0DJD8ZZ Inspection of Lower Intestinal Tract, Via Natural or Artificial Opening Endoscopic (ICD-10-PCS; principal; 2023-01-27 08:00)
DX: Z12.11 Encounter for screening for malignant neoplasm of colon (principal); K64.8 Other hemorrhoids; I10 Essential (primary) hypertension; F41.9 Anxiety disorder, unspecified; E78.00 Pure hypercholesterolemia, unspecified
CPT/HCPCS: 80048; 36415; 88305; 45378; J2704; J2001; J7120

== ENCOUNTER 2024-01-15 11:12 | Emergency (ER) | payer BC ==
--- OUTSIDE RECORDS SUMMARY | 2024-01-15 11:16 | XMS REPORT | Continuity of Care Document ---
Author Name Unknown Address [address] [facility] [place] [address] [facility] thconnect Address [address] [facility] [address] [place] [address] Care Team Providers Care Retail Product Demo Specialist Name Role Phone Judson Lenore Attending Clinician Unavailable Meron Jaquez Attending Clinician Unavailable Agusto Webster Attending Clinician Unavailable Ever Smith Attending Clinician Unavailable Emiliano Murray Attending Clinician Unavail le Physician, No Primary or Family Admitting Clinic cuate Unavailable UNDEFINED Admitting Clinician Unavailable Payers Payer Name Policy Type Policy Number Effective Date Expirati on Date Source [facility] 6 [id number] [place] [address] [id number] [facility] 6 [id number] 2019 00:00:00 [facility] Problems Condition Name Condition Details Condition Category Status Onset Date Resolution Date Last Treatment Date Treating Clinician Comments Source Arthralgia of the lower leg Pain in right knee Problem [facility] [id number] ED (erectile dysfunctio n) of organic origin Problem [facility] [id number] BMI 45.0-49.9, adult Problem [facility] [id number] Morbid obesity Problem [facility] [id number] Hyperhidro sis Problem [facility] [id number] Chronic GERD Problem [facility] [id number] Type 2 diabetes mellitus with hyperglyce ramon, without long-term current use of insulin Problem [facility] Low back pain Low back pain Problem [facility] [id number] Essential hypertensi on Problem [facility] [id number] Hyperchole sterolemia Problem [facility] [id number] Depression with anxiety Problem [facility] [id number] Back muscle spasm Problem [facility] [id number] Low testostero ne in male Problem [facility] [id number] Urethritis Problem Comm on [facility] Chronic pain Other chronic pain Problem [facility] [id number] Arthritis of knee, right Problem [facility] Kidney stone Kidney stones Problem [facility] [id number] Other stricture of overlappin g sites of 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 Problem [facility] [id number] BPH loc w urin obs/LUTS Problem [facility] [id number] 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 Problem [facility] Allergies, Adverse Reactions, Alerts Allergy Name Allergy Type Status Severity Reaction(s) Onset Date Inactive Date Treating Clinician Comments Source Penicill ins DA Active U UNKNOWN 06-28 00:00: 00 [facility] Penicill ins DA Active U HIVES 09-19 00:00: 00 [facility] 0 Drug allergy Active hives [facility] Social History Social Habit Start Date Stop Date Quantity Comments Source History of Tobacco Use Current Smoker [facility] Sex Assigned At [facility] Smoking Status Start Date Stop Date Source Current Smoker 2023-11-22 00:00:00 [facility] Medications Ordered Medication Name Filled Medication Name Start Date Stop Date Current Medication? Ordering Clinician Indication Dosage Frequency Signature (SIG) Comments Components Source metFORMIN HCl ER 750 MG metFORMIN HCl ER 750 MG 07-24 00:00: 00 No 1{table t_with_ evening _meal} BID metFORMIN HCl ER 750 MG Tamsulosin HCl 0.4 MG Tamsulosin HCl 0.4 MG 09-06 00:00: 00 No 1{capsu le} QD Tamsulosin HCl 0.4 MG Bupivicaine [place] Bupivicaine Yuma 07-28 00:00: 00 No 2.5mg [facility] Kenalog (Triamcinol one) Kenalog (Triamcinol one) 07-28 00:00: 00 No 40mg [facility] Methocarbam ol 750 MG Methocarbam ol 750 MG No QID Methocarba mol 750 MG FLUoxetine HCl 40 MG FLUoxetine HCl 40 MG No 1{capsu le} QD FLUoxetine HCl 40 MG Lisinopril 20 MG Lisinopril 20 MG No 1{table t} BID Lisinopril 20 MG Dicyclomine HCl 20 MG Dicyclomine HCl 20 MG No 1{table t} TID Dicyclomin e HCl 20 MG Pepcid 20 MG Pepcid 20 MG No 1{table t_at_be dtime_a s_neede d} QD Pepcid 20 MG Ondansetron HCl 4 MG Ondansetron HCl 4 MG No 1{table t} QD Ondansetro n HCl 4 MG Omeprazole 40 MG Omeprazole 40 MG No QD Omeprazole 40 MG Fish Oil 1000 MG Fish Oil 1000 MG No 1{capsu le} BID Fish Oil 1000 MG Immunizations Ordered Immunization Name Filled Immunization Name Date Status Comments Source Bupivicaine Yuma Bupivicaine Yuma 2020-07-28 15:28:00 Completed [facility] Kenalog (Triamcinolone) Kenalog (Triamcinolone) 2020-07-28 15:28:00 Completed [facility] Bupivicaine Yuma Bupivicaine Yuma 2020-07-28 15:28:00 Completed [facility] Kenalog (Triamcinolone) Kenalog (Triamcinolone) 2020-07-28 15:28:00 Completed [facility] Moderna COVID-19 Vaccine Moderna COVID-19 Vaccine 2020-04-29 09:26:00 Completed [facility] Moderna COVID-19 Vaccine Moderna COVID-19 Vaccine 2020-04-29 09:26:00 Completed [facility] Moderna COVID-19 Vaccine Moderna COVID-19 Vaccine 2020-04-29 09:26:00 Completed [facility] Moderna COVID-19 Vaccine Moderna COVID-19 Vaccine 2020-04-29 09:26:00 Completed [facility] Moderna COVID-19 Vaccine Moderna COVID-19 Vaccine 2020-03-24 09:26:00 Completed [facility] Moderna COVID-19 Vaccine Moderna COVID-19 Vaccine 2020-03-24 09:26:00 Completed [facility] Moderna COVID-19 Vaccine Moderna COVID-19 Vaccine 2020-03-24 09:26:00 Completed [facility] Moderna COVID-19 Vaccine Moderna COVID-19 Vaccine 2020-03-24 09:26:00 Completed [facility] Moderna COVID-19 Vaccine Moderna COVID-19 Vaccine Unknown Completed [facility] Moderna COVID-19 Vaccine Moderna COVID-19 Vaccine Unknown Completed [facility] Moderna COVID-19 Vaccine Moderna COVID-19 Vaccine Unknown Completed [facility] Moderna COVID-19 Vaccine Moderna COVID-19 Vaccine Unknown Completed [facility] Moderna COVID-19 Vaccine Moderna COVID-19 Vaccine Unknown Completed [facility] Moderna COVID-19 Vaccine Moderna COVID-19 Vaccine Unknown Completed [facility] Moderna COVID-19 Vaccine Moderna COVID-19 Vaccine Unknown [facility] Moderna COVID-19 Vaccine Unknown Completed [facility] Vital Signs Vital Name Observation Time Observation Value Comments Florinda rose height 2023-11-22 10:40:00 70.00 [in_i] Com [facility] weight 2023-11-22 10:40:00 368.2 [lb_av] [facility] 2023-11-22 10:40:00 97.8 [degF] Com [facility] bmi 2023-11-22 10:40:00 52.83 kg/m2 Comm on [facility] oximetry 2023-11-22 10:40:00 96 % Commo n [facility] respiratory rate 2023-11-22 10:40:00 16 /min [facility] blood pressure systolic 2023-11-22 10:40:00 130 mm[Hg] [facility] blood pressure diastolic 2023-11-22 10:40:00 74 mm[Hg] [facility] height 2023-07-25 10:40:00 70.00 [in_i] Com [facility] weight 2023-07-25 10:40:00 359.4 [lb_av] Co mmon [facility] temperature 2023-07-25 10:40:00 98.0 [degF] Com [facility] bmi 2023-07-25 10:40:00 51.56 kg/m2 Comm on [facility] oximetry 2023-07-25 10:40:00 95 % Commo n [facility] respiratory rate 2023-07-25 10:40:00 15 /min [facility] blood pressure systolic 2023-07-25 10:40:00 121 mm[Hg] Common [facility] blood pressure diastolic 2023-07-25 10:40:00 54 mm[Hg] [facility] height 2023-01-09 14:40:00 70.00 [in_i] Com [facility] weight 2023-01-09 14:40:00 352.0 [lb_av] Co mmon [facility] temperature 2023-01-09 14:40:00 97.5 [degF] Com [facility] bmi 2023-01-09 14:40:00 50.5 kg/m2 Commo n [facility] oximetry 2023-01-09 14:40:00 96 % Commo n [facility] respiratory rate 2023-01-09 14:40:00 16 /min [facility] blood pressure systolic 2023-01-09 14:40:00 120 mm[Hg] [facility] blood pressure diastolic 2023-01-09 14:40:00 78 mm[Hg] [facility] height 2022-10-05 15:00:00 70.00 [in_i] Com [facility] weight 2022-10-05 15:00:00 336.8 [lb_av] Co mmon [facility] temperature 2022-10-05 15:00:00 98.4 [degF] Com [facility] bmi 2022-10-05 15:00:00 48.32 kg/m2 Comm on [facility] oximetry 2022-10-05 15:00:00 96 % Commo n [facility] respiratory rate 2022-10-05 15:00:00 16 /min [facility] blood pressure systolic 2022-10-05 15:00:00 122 mm[Hg] [facility] blood pressure diastolic 2022-10-05 15:00:00 78 mm[Hg] Common [facility] height 2022-09-06 13:40:00 70.00 [in_i] Com [facility] weight 2022-09-06 13:40:00 347.4 [lb_av] Co mmon [facility] temperature 2022-09-06 13:40:00 98.2 [degF] Com [facility] bmi 2022-09-06 13:40:00 49.84 kg/m2 Comm on [facility] oximetry 2022-09-06 13:40:00 94 % Commo n [facility] respiratory rate 2022-09-06 13:40:00 16 /min Common [facility] blood pressure systolic 2022-09-06 13:40:00 138 mm[Hg] Common [facility] blood pressure diastolic 2022-09-06 13:40:00 76 mm[Hg] Common [facility] height 2022-05-09 15:00:00 70.00 [in_i] Com [facility] weight 2022-05-09 15:00:00 335 [lb_av] Comm on [facility] temperature 2022-05-09 15:00:00 97.7 [degF] Com [facility] bmi 2022-05-09 15:00:00 48.06 kg/m2 Comm on [facility] oximetry 2022-05-09 15:00:00 97 % Commo n [facility] respiratory rate 2022-05-09 15:00:00 17 /min Common [facility] blood pressure systolic 2022-05-09 15:00:00 148 mm[Hg] [facility] blood pressure diastolic 2022-05-09 15:00:00 88 mm[Hg] [facility] height 2021-09-10 08:40:00 70.00 [in_i] Com [facility] weight 2021-09-10 08:40:00 348.8 [lb_av] Co mmon [facility] temperature 2021-09-10 08:40:00 97.3 [degF] Com [facility] bmi 2021-09-10 08:40:00 50.04 kg/m2 Comm on [facility] oximetry 2021-09-10 08:40:00 94 % Commo n [facility] respiratory rate 2021-09-10 08:40:00 18 /min Common [facility] blood pressure systolic 2021-09-10 08:40:00 138 mm[Hg] Common [facility] blood pressure diastolic 2021-09-10 08:40:00 88 mm[Hg] [facility] height 2021-01-07 10:00:00 70.00 [in_i] Com [facility] weight 2021-01-07 10:00:00 332 [lb_av] Comm on [facility] temperature 2021-01-07 10:00:00 98.1 [degF] Com [facility] bmi 2021-01-07 10:00:00 47.63 kg/m2 Comm on [facility] oximetry 2021-01-07 10:00:00 96 % Commo n [facility] blood pressure systolic 2021-01-07 10:00:00 161 mm[Hg] Common [facility] blood pressure diastolic 2021-01-07 10:00:00 97 mm[Hg] Common [facility] height 2020-12-29 10:20:00 70.00 [in_i] Com [facility] weight 2020-12-29 10:20:00 334 [lb_av] Comm on [facility] temperature 2020-12-29 10:20:00 97.0 [degF] Com [facility] bmi 2020-12-29 10:20:00 47.92 kg/m2 Comm on [facility] oximetry 2020-12-29 10:20:00 97 % Commo n [facility] respiratory rate 2020-12-29 10:20:00 16 /min [facility] blood pressure systolic 2020-12-29 10:20:00 134 mm[Hg] [facility] blood pressure diastolic 2020-12-29 10:20:00 88 mm[Hg] [facility] height 2020-11-11 09:00:00 70.00 [in_i] Com [facility] weight 2020-11-11 09:00:00 339 [lb_av] Comm on [facility] temperature 2020-11-11 09:00:00 97.9 [degF] Com [facility] bmi 2020-11-11 09:00:00 48.64 kg/m2 Comm on [facility] oximetry 2020-11-11 09:00:00 97 % Commo n [facility] respiratory rate 2020-11-11 09:00:00 18 /min [facility] blood pressure systolic 2020-11-11 09:00:00 140 mm[Hg] Common [facility] blood pressure diastolic 2020-11-11 09:00:00 89 mm[Hg] [facility] height 2020-09-25 10:20:00 70.00 [in_i] Com [facility] weight 2020-09-25 10:20:00 333 [lb_av] Comm on [facility] temperature 2020-09-25 10:20:00 97.2 [degF] Com [facility] bmi 2020-09-25 10:20:00 47.78 kg/m2 Comm on [facility] oximetry 2020-09-25 10:20:00 95 % Commo n [facility] respiratory rate 2020-09-25 10:20:00 16 /min [facility] blood pressure systolic 2020-09-25 10:20:00 127 mm[Hg] [facility] blood pressure diastolic 2020-09-25 10:20:00 74 mm[Hg] [facility] Encounters Start Date/Time End Date/Time Encounter Type Admission Type Attending [facility] Care Department Encounter ID Source 2023-11-21 15:34:00 Outpatient Lenore Roper [facility]C ST[facility] [id number] [facility] 2023-07-05 15:45:00 Outpatient Lenore Roper STL[facility]C ST[facility] [id number] [facility] 2023-05-11 07:38:00 Outpatient Lenore Roper [facility] ST[facility] [id number] [facility] 2023-01-30 10:24:00 Outpatient Lenore Roper STL[facility]C ST[facility] [id number] [facility] 2022-05-09 14:37:01 Outpatient Lenore Roper STL[facility]C ST[facility]C [id number] [facility] 2021-09-02 09:23:01 Outpatient Lenore Roper [facility]C ST[facility]C [id number] [facility] 2021-04-21 14:01:47 Outpatient Lenore Roper STL[facility]C ST[facility]C [id number] [facility] 2021-04-21 13:48:20 Outpatient Lenore Roper [facility] ST[facility] [id number] [facility] 2021-04-21 13:39:41 Outpatient Lenore Roper [facility] ST[facility] [id number] [facility] 2021-04-21 13:39:34 Outpatient Lenore Roper [facility] ST[facility]C [id number] [facility] 2021-04-21 13:26:31 Outpatient Lenore Roper [facility] ST[facility] [id number] [facility] 2021-04-21 13:21:35 Outpatient Lenore Roper [facility] ST[facility] [id number] [facility] 2021-04-21 12:59:15 Outpatient Lenore Roper [facility] ST[facility] [id number] [facility] 2021-04-21 12:58:26 Outpatient [place] [facility] [id number] [facility] 2021-04-21 12:57:42 Outpatient [place] [facility] ST[facility] [id number] [facility] 2021-04-21 12:48:56 Outpatient Lenore Roper ST[facility]C STL[facility]C [id number] [facility] 2021-04-21 12:48:19 Outpatient Lenore Roper ST[facility] ST[facility] [id number] [facility] 2021-04-21 12:47:50 Outpatient Lenore Roper [facility] ST[facility] [id number] [facility] 2021-04-21 12:11:30 Outpatient [facility] ST[facility] [id number] [facility] 2021-04-21 11:48:33 Outpatient Meron Jaquez STL[facility]C ST[facility] [id number] [facility] 2023-11-22 00:00:00 2023-11-22 00:00:00 OFFICE VISIT ESTAB PT LEVEL 4 [facility]LMLC STL[facility]C [id number] [facility] 2023-11-21 00:00:00 2023-11-21 00:00:00 (TEL) STLMLC STL[facility]C [id number] [facility] 2023-09-20 00:00:00 2023-09-20 00:00:00 (TEL) STLMLC STLMLC [id number] [facility] 2023-07-25 00:00:00 2023-07-25 00:00:00 OFFICE VISIT ESTAB PT LEVEL 4 [facility]C STL[facility]C [id number] [facility] 2023-07-20 00:00:00 2023-07-20 00:00:00 (TEL) STLMLC STLMLC [id number] [facility] 2023-03-25 15:32:00 2023-03-25 19:33:00 Emergency EM Agusto Webster [facility] ER [id number] 25 [facility] 2023-01-30 00:00:00 2023-01-30 00:00:00 (TEL) STLMLC STLMLC [id number] [facility] 2023-01-25 00:00:00 2023-01-25 00:00:00 (TEL) STLMLC STLMLC [id number] [facility] 2023-01-09 00:00:00 2023-01-09 00:00:00 OFFICE VISIT ESTAB PT LEVEL 3 [facility] STL[facility]C [id number] [facility] 2022-10-16 19:47:00 2022-10-16 20:45:00 Emergency EM Ever Smith [facility] ER [id number] 92 [facility] 2022-10-05 00:00:00 2022-10-05 00:00:00 OFFICE VISIT ESTAB PT LEVEL 3 [facility]C STL[facility]C [id number] [facility] 2022-09-06 00:00:00 2022-09-06 00:00:00 OFFICE VISIT ESTAB PT LEVEL 3 [facility] STL[facility]C [id number] [facility] 2022-06-28 14:25:00 2022-06-28 17:40:00 Emergency EM mEiliano Murray [facility] ER [id number] [facility] 2022-06-28 14:25:00 2022-06-28 17:40:00 [id number] 15 [facility] 2022-05-09 00:00:00 2022-05-09 00:00:00 OFFICE VISIT ESTAB PT LEVEL 3 STLMLC STLMLC [id number] [facility] 2022-04-27 00:00:00 2022-04-27 00:00:00 (TEL) STLMLC STLMLC [id number] [facility] 2021-09-10 00:00:00 2021-09-10 00:00:00 OFFICE VISIT EST PT LEVEL 3 [facility]C STL[facility]C [id number] [facility] 2021-03-25 00:00:00 2021-03-25 00:00:00 (TEL) STLMLC STLMLC [id number] [facility] 2021-01-28 00:00:00 2021-01-28 00:00:00 OL DIG E/M SVC 11-20 MIN STLMLC STLMLC [id number] [facility] 2021-01-07 00:00:00 2021-01-07 00:00:00 OFFICE VISIT ESTAB PT LEVEL 4 [facility] ST[facility]C [id number] [facility] 2020-12-29 00:00:00 2020-12-29 00:00:00 OFFICE VISIT ESTAB PT LEVEL 4 [facility] STL[facility]C [id number] [facility] 2020-12-17 00:00:00 2020-12-17 00:00:00 (TEL) STLMLC STLMLC [id number] [facility] 2020-11-11 00:00:00 2020-11-11 00:00:00 OFFICE VISIT EST PT LEVEL 3 [facility] STL[facility]C [id number] [facility] 2020-10-29 00:00:00 2020-10-29 00:00:00 (TEL) STLMLC STLMLC [id number] [facility] 2020-09-25 00:00:00 2020-09-25 00:00:00 OFFICE VISIT ESTAB PT LEVEL 4 [facility]C ST[facility]C [id number] [facility] 2020-09-03 00:00:00 2020-09-03 00:00:00 Outpatient [facility] [id number] [facility] 2020-08-26 00:00:00 2020-08-26 00:00:00 Outpatient [facility] ST[facility] [id number] [facility] 2020-08-04 00:00:00 2020-08-04 00:00:00 Outpatient [facility] [id number] [facility] 2020-07-28 00:00:00 2020-07-28 00:00:00 Outpatient [facility] [id number] [facility] 2020-07-21 00:00:00 2020-07-21 00:00:00 Outpatient [facility] [id number] [facility] 2020-07-13 00:00:00 2020-07-13 00:00:00 Outpatient [facility] ST[facility] [id number] [facility] 2020-07-01 00:00:00 2020-07-01 00:00:00 Outpatient [facility] ST[facility] [id number] [facility] 2020-06-30 00:00:00 2020-06-30 00:00:00 Outpatient [facility]C STL[facility]C [id number] [facility] 2020-06-26 00:00:00 2020-06-26 00:00:00 Outpatient [facility] ST[facility] [id number] [facility] 2020-05-26 00:00:00 2020-05-26 00:00:00 Outpatient [facility] [id number] [facility] 2020-04-22 00:00:00 2020-04-22 00:00:00 Outpatient [facility] [id number] [facility] 2020-04-09 00:00:00 2020-04-09 00:00:00 Outpatient [facility] [id number] [facility] 2020-04-08 00:00:00 2020-04-08 00:00:00 Outpatient [facility] ST[facility] [id number] [facility] 2020-03-25 00:00:00 2020-03-25 [facility]:00:[id number] 2019-12-18 00:00:00 2019-12-18 00:00:00 Outpatient [facility] [id number] [facility] 2019-12-18 00:00:00 2019-12-18 00:00:00 Outpatient [facility] [id number] [facility] Results Test Description Test Time Test Comments Results Result Co mments Source - CT ABD PELVIS [id number] 18:48[facility] 1970 Sex: M Patient Name: JD COOMBS Unit No: [id number] EXAMS: CPT CODE: [id number] CT ABD PELVIS W/CONT 06265 Reason: ABDOMINAL DISTENTION, ABDOMINAL EXAM: - CT ABD PELVIS W/CONT INDICATION: 52 years -old Male with ABDOMINAL DISTENTION, ABDOMINAL PAIN TECHNIQUE: Contrast - IV contrast was given. No oral contrast was given Portal venous phase - abdomen and pelvis No delayed phase images were obtained. Reconstructions - coronal and sagittal planes Automated exposure reduction (Auto mA/Smart mA) was utilized in compliance with ACR Image Wisely COMPARISON: None FINDINGS: Statements: None. Thoracic: Included images of the lower chest demonstrate no abnormalities. Hepatobiliary: The liver is normal without focal lesion. The gallbladder is normal. No biliary dilation. Pancreas: Normal. Spleen: Normal. Adrenals: Normal. Genitourinary: The kidneys are normal. No evidence of hydronephrosis. Evaluation of the bladder is limited, but no obvious bladder abnormality is present. Gastrointestinal: No evidence of bowel obstruction. There is minimal haziness involving central mesentery. The appendix is normal. Vascular: No evidence of aneurysm or dissection. Bones/Soft Tissues: No acute osseous findings. Peritoneum/Other: No extraluminal fluid. IMPRESSION: 1. Normal appendix. No evidence of bowel obstruction. 2. Minimal haziness involving central mesentery nonspecific in nature. Findings couldrepresent sequelae of prior enteritis versus mesenteritis. No fluid collection or abscess. No otheracute inflammatory process demonstrated. [place] FSED NAME: JD COOMBS [id number] [facility] PHYS: [place] [address] : 1970 AGE: 52 SEX: M LOC: D.NER PHONE #: [phone] EXAM DATE: 03/25/2023 STATUS: REG ER FAX #: RAD NO:DC Dt: PAGE 1 Signed Report (CONTINUED) Patient Name: JD COOMBS Unit No: [id number] EXAMS: CPT CODE: [id number] CT ABD PELVIS W/CONT 44318 (Continued) Reason: ABDOMINAL DISTENTION, ABDOMINAL at 1848 Reported and signed by: Sukhdev Mccarty MD CC: Ayla MEJIAS; Agusto Webster MD Technologist: SHREYA Stapleton Trscrpt Dt/ ([id number] Orig Print D/T: S: 03/25/2023 (185) CTDI: DLP: [place] FS NAME: JD COOMBS [id number] [facility] PHYS: [place] [address] : 1970 AGE: 52 SEX: M LOC: DFabienneNER PHONE #: [phone] EXAM DATE: 03/25/2023 STATUS: REG ER FAX #: RAD NO: DC Dt: PAGE 2 Signed ReportBASIC METABOLIC PANEL 2023-03-25 16:59:00* Test Item Value Reference Range Interpretation Comme nts SODIUM (test code = NA) 137 MMOL/L 133-145 N POTASSIUM (test code = K) 4.1 MMOL/L 3.6-5.2 N CHLORIDE (test code = CL) 101 MMOL/L 100-108 N CARBON DIOXIDE (test code = CO2) 25 MMOL/L 22-32 N GLUCOSE (test code = GLU) 110 MG/DL 65-99 H Results of this assay method may be falsely depressed orelevated if patient is taking sulfasalazine. BLOOD UREA NITROGEN (test code = BUN) 21 MG/DL 6-20 H GLOMERULAR FILTRATION RATE (test code = GFR) 81 56-130 N The Glomerular Filtration Rate is a calculated parameterbased on serum Creatinine, patient age and sex. GFR valuesless than 60 mL/min/1.73 square meters are indicative ofChronic Kidney Disease. Values less than 15 mL/min/1.73square meters indicate Kidney failure. The calculation forGFR is based on the CKD-EPI (2020) calculation. This formulais race indifferent and is the recommended formula for GFRby the National Kidney Foundation for Adults.The GFR will not calculate if the sex is unknown or if thepatient's age is <18 years. CREATININE (test code = CREAT) 1.09 MG/DL 0.60-1.00 H CALCIUM (test code = CA) 10.0 MG/DL 8.7-10.5 N HEPATIC FUNCTION [id number] 16:59:00* Test Item Value Reference Range Interpretation Comme nts TOTAL PROTEIN (test code = PROT) 7.7 G/DL 6.4-8.2 N ALBUMIN (test code = ALB) 4.3 G/DL 3.4-5.0 N GLOBULIN (test code = GLOB) 3.4 G/DL 1.5-3.8 N ALBUMIN/GLOBULIN RATIO (test code = A/G) 1.3 1.1-2.2 N BILIRUBIN TOTAL (test code = BILT) 0.9 MG/DL 0.0-1.0 N BILIRUBIN DIRECT (test code = BILD) 0.2 MG/DL 0.0-0.3 N BILIRUBIN INDIRECT (test code = BILIND) 0.7 MG/DL 0.0-0.7 N SGOT/AST (test code = AST) 27 Units/L 15-37 N Results of this assay method may be falsely depressed orelevated if patient is taking sulfasalazine. SGPT/ALT (test code = ALT) 80 Units/L 30-65 H Results of this assay method may be falsely depressed orelevated if patient is taking sulfasalazine. ALKALINE PHOSPHATASE TOTAL (test code = ALKP) 153 Units/L 50-136 H [id number] 16:59:00* Test Item Value Reference Range Interpretation Comme nts LIPASE (test code = LIP) 31 U/L 16-77 N New Reference Ranges of 16-77 U/L please reviewrevised from 73-393 U/L on 01/10/2023 TROP-I HIGH [id number] 16:59:00* Test Item Value Reference Range Interpretation Comme nts TROP-I HIGH SENSITIVITY (test code = TROPIHS) 10 ng/L < 76 Results above 51 for females and 76 for males are consistent with IFCC Committee recommendations to use the 99th percentile of a normal population as a reference decision-limit. - The use of serial sampling and testing protocol is a recommended practive.- An elevated high sensitiveity troponin level alone is often not sufficient for diagnosis of myocardial infarction.- In order to distinguish acute elevations of high sensitivity troponin from other clinical conditions, the Fourth [place] Definition of Myocardial Infarction stresses clinical assessment and demonstration of a rise and/or fall in serial troponin results above the upper reference limit.Results of this assay method may be falsely depressed orelevated if patient is taking high doses of Biotin. LACTIC [id number] 16:59:00* Test Item Value Reference Range Interpretation Comme nts LACTIC ACID (test code = LACT) 0.6 MMOL/L 0.5-2.2 N UA RFLX MICROSCOPIC [id number] 16:38:00* Test Item Value Reference Range Interpretation Comme nts UA COLOR (test code = COLU) YELLOW YELLOW UA APPEARANCE (test code = APPU) HAZY CLEAR UA GLUCOSE DIPSTICK (test code = DGLUU) NEGATIVE mg/dL NEGATIVE UA BILIRUBIN DIPSTICK (test code = BILU) 1+ NEGATIVE A Not able to rule out false positive; No confirmatory test. UA KETONE DIPSTICK (test code = KETU) NEGATIVE mg/dL NEGATIVE UA SPECIFIC GRAVITY (test code = SGU) 1.020 1.001-1.035 N UA BLOOD DIPSTICK (test code = ALAINA) 1+ NEGATIVE A UA PH DIPSTICK (test code = NONA) 5.0 5.5-7.0 L UA PROTEIN DIPSTICK (test code = PROU) NEGATIVE mg/dL NEGATIVE UA UROBILINOGEN DIPSTICK (test code = URO) NORMAL mg/dL NORMAL UA NITRITE DIPSTICK (test code = BASIL) NEGATIVE NEGATIVE UA LEUKOCYTE ESTERASE DIPSTICK (test code = LEUU) NEGATIVE NEGATIVE UA COMMENT (test code = COMU) VOLUME 10-12 ML URINE SPECIMEN DESCRIPTION (test code = UASPEC) Clean Catch UA WBC (test code = WBCU) < 10 #/hpf <10 UA SQUAMOUS CELLS (test code = SQU) 80 - 100 #/lpf <100 UA CULTURE NEEDED? (test code = UACULT) Criteria not met Indication for culture: RiskForSepsis-no oth srcURINE SOURCE: Clean CatchUA [id number] 16:38:00* Test Item Value Reference Range Interpretation Comme nts UA RBC (test code = RBCU) 2-5 #/hpf NONE SEEN A UA BACTERIA (test code = BACU) 1+ #/hpf NONE SEEN UA MUCUS (test code = MUCU) 1+ #/lpf NONE SEEN Indication for culture: RiskForSepsis-no oth srcURINE SOURCE: Clean CatchCBC W/AUTO [id number] 16:36:00* Test Item Value Reference Range Interpretation Comme nts WHITE BLOOD CELL (test code = WBC) 12.27 x10 3/uL 4.80-10.80 H Results called t o and read back by DAWN STEELE RN;[id number], 03/25/23, [id number]. RED BLOOD CELL (test code = RBC) 5.67 x10 6/uL 4.7-6.1 N HEMOGLOBIN (test code = HGB) 15.6 G/DL 14.0-17.0 N HEMATOCRIT (test code = HCT) 47.2 % 42-52 N MEAN CELL VOLUME (test code = MCV) 83.2 FL 80-94 N MEAN CELL HGB (test code = MCH) 27.5 PG 27-31 N MEAN CELL HGB CONCENTRATION (test code = MCHC) 33.1 G/DL 33-37 N RED CELL DISTRIBUTION WIDTH (test code = RDW) 13.5 % 11.5-14.5 N PLATELET COUNT (test code = PLT) 238 x10 3/uL 150-450 N MEAN PLATELET VOLUME (test code = MPV) 11.2 FL 7.4-10.4 H NEUTROPHIL % (test code = NT%) 79.6 % 42-86 N LYMPHOCYTE % (test code = LY%) 13.3 % 24-44 L MONOCYTE % (test code = MO%) 5.9 % 0.0-4.0 H EOSINOPHIL % (test code = EO%) 0.9 % 0.0-2.7 N BASOPHIL % (test code = BA%) 0.3 % 0.0-0.5 N NEUTROPHIL # (test code = NT#) 9.76 x10 3/uL 1.8-7.7 H LYMPHOCYTE # (test code = LY#) 1.63 x10 3/uL 1.0-4.8 N MONOCYTE # (test code = MO#) 0.73 x10 3/uL 0.0-0.8 N EOSINOPHIL # (test code = EO#) 0.11 x10 3/uL 0.0-0.5 N BASOPHIL # (test code = BA#) 0.04 x10 3/uL 0.0-0.2 N - XR L-SPINE [id number] 20:26:00 [facility] 1970 Sex: M Patient Name: JD COOMBS Unit No: [id number] EXAMS: CPT CODE: [id number] XR L-SPINE 4+VIEWS [id number] Reason: back pain STUDY: Lumbar spine radiograph HISTORY: Back pain COMPARISON: No Prior TECHNIQUE: AP, oblique, lateral, and lateral coned down views of the lumbar spine. LOCATION: H19 FINDINGS: There are 5 nonrib-bearing lumbar vertebral bodies. There is no significant scoliosis or listhesis. The v ertebral body heights are maintained. There is mild to moderate intervertebral disc space narrowing. Prominent anterior marginal spurs are demonstrated throughout the lumbar spine, greatest at L1-2 and L2-3. The pedicles and sacroiliac joints appear symmetric. IMPRESSION: No evidence of acute osseous abnormality. Mild to moderate multilevel spondylosis. at 2025 Reported and signed by: Sukhdev Joaquin MD CC: Ever Smith III, DO Technologist: SHREYA Cr Trscrpt Dt/ (2025)[id number] Orig Print D/T: S: 10/16/2022 (2029) [place] FS NAME: JD COOMBS [address] [place] [address] PHYS: [email or web address].Eduardo [place] [address] : 1970 AGE: 52 SEX: M LOC: JAIDEN PHONE #: EXAM DATE: 10/16/2022 STATUS: REG ER FAX #: RAD NO: DC Dt: PAGE 1 Signed ReportCOMPREHENSIVE METABOLIC [id number] 17:31:00* Test Item Value Reference Range Interpretation Comme nts SODIUM (test code = NA) 144 MMOL/L 133-145 N POTASSIUM (test code = K) 5.1 MMOL/L 3.6-5.2 N NO HEMOLYSIS CHLORIDE (test code = CL) 106 MMOL/L 100-108 N CARBON DIOXIDE (test code = CO2) 29 MMOL/L 22-32 N GLUCOSE (test code = GLU) 103 MG/DL 65-99 H Results of this assay method may be falsely depressed orelevated if patient is taking sulfasalazine. BLOOD UREA NITROGEN (test code = BUN) 17 MG/DL 6-20 N GLOMERULAR FILTRATION RATE (test code = GFR) 90 56-130 N The Glomerular Filtration Rate is a calculated parameterbased on serum Creatinine, patient age and sex. GFR valuesless than 60 mL/min/1.73 square meters are indicative ofChronic Kidney Disease. Values less than 15 mL/min/1.73square meters indicate Kidney failure. The calculation forGFR is based on the CKD-EPI (202) calculation. This formulais race indifferent and is the recommended formula for GFRby the National Kidney Foundation for Adults.The GFR will not calculate if the sex is unknown or if thepatient's age is <18 years. CREATININE (test code = CREAT) 1.00 MG/DL 0.60-1.00 N TOTAL PROTEIN (test code = PROT) 7.9 G/DL 6.4-8.2 N ALBUMIN (test code = ALB) 4.3 G/DL 3.4-5.0 N CALCIUM (test code = CA) 10.4 MG/DL 8.7-10.5 N BILIRUBIN TOTAL (test code = BILT) 0.9 MG/DL 0.0-1.0 N SGOT/AST (test code = AST) 50 Units/L 15-37 H Results of this assay method may be falsely depressed orelevated if patient is taking sulfasalazine. SGPT/ALT (test code = ALT) 63 Units/L 30-65 N Results of this assay method may be falsely depressed orelevated if patient is taking sulfasalazine. ALKALINE PHOSPHATASE TOTAL (test code = ALKP) 149 Units/L 50-136 H [id number] 16:40:00* Test Item Value Reference Range Interpretation Comme nts LIPASE (test code = LIP) 118 Units/L 73-393 N [id number] 16:40:00* Test Item Value Reference Range Interpretation Comme nts MAGNESIUM (test code = MAG) 2.1 MG/DL 1.8-2.4 N URINALYSIS W/O [id number] 16:34:00* Test Item Value Reference Range Interpretation Comme nts UA COLOR (test code = COLU) Yellow YELLOW UA APPEARANCE (test code = APPU) CLEAR CLEAR UA GLUCOSE DIPSTICK (test code = DGLUU) NEGATIVE mg/dL NEGATIVE UA BILIRUBIN DIPSTICK (test code = BILU) NEGATIVE NEGATIVE UA KETONE DIPSTICK (test cod e = KETU) NEGATIVE mg/dL NEGATIVE UA SPECIFIC GRAVITY (test code = SGU) 1.010 1.001-1.035 N UA BLOOD DIPSTICK (test code = ALAINA) TRACE NEGATIVE UA PH DIPSTICK (test code = NONA) 6.0 5.5-7.0 N UA PROTEIN DIPSTICK (test code = PROU) NEGATIVE mg/dL NEGATIVE UA UROBILINOGEN DIPSTICK (test code = URO) 1.0 mg/dL NORMAL UA NITRITE DIPSTICK (test code = BASIL) NEGATIVE NEGATIVE UA LEUKOCYTE ESTERASE DIPSTICK (test code = LEUU) NEGATIVE NEGATIVE UA COMMENT (test code = COMU) VOLUME 10-12 ML URINE SPECIMEN DESCRIPTION (test code = UASPEC) Clean Catch Indication for culture: RiskForSepsis-no oth srcURINE SOURCE: Clean Catch- CT ABD PELVIS [id number] 15:58:00 [facility] 1970 Sex: M Patient Name: JD COOMBS Unit No: [id number] EXAMS: CPT CODE: [id number] CT ABD PELVIS W/CONT 20757 Reason: ABD PAIN HISTORY: ABD PAIN TECHNIQUE: Helical imaging of the abdomen and pelvis is performedwith intravenous contrast. Approximately 100 mL of intravenous contrast was administered. No oral contrast is administered. Sagittal and coronal reconstructions reviewed. CT DLP dose: 1234 mGy-cm. One or more of the following dose reduction techniques were used: Automated exposure control, adjustment of the mA and/or kV according to patient size, and/or utilization of iterative reconstruction technique. Location: W1 Comparison study: None FINDINGS: The images of the lung bases demonstrate no masses, effusions or infiltrates. Heart size is normal. There is no pericardial effusion. The liver is homogeneous, free of focal masses and dilated intrahepatic ducts. The gallbladder is contracted. The spleen is normal in size and contour. The pancreas is morphologically normal. No mass, pancreaticduct dilatation or peripancreatic edema is visible. The [...] not confidently seen. There is no pericecal inflammation.There is mild stranding in the root of mesentery. No retroperitoneal lymphadenopathy is present. The aorta is of normal caliber. The IVC is patent. The portal vein is patent. No evidence of ascites. Abdominal wall is intact. No significant bone lesions. IMPRESSION: 1. Mild nonspecific stranding along the root of the mesentery. Consider possibility of mesenteritis. [place] FSED NAME: JD COOMBS [address] [place] [address] PHYS: RODRIGUEMA.[place] [address] : 1970 AGE: 52 SEX: M LOC: D.RER PHONE #: EXAM DATE: 06/28/2022 STATUS: REG ER FAX #: RAD NO:DC Dt: PAGE 1 Signed Report (CONTINUED) Patient Name: JD COOMBS Unit No: [id number] EXAMS: CPTCODE: [id number] CT ABD PELVIS W/CONT 28414 (Continued) Reason: ABD PAIN at 1558 Reported and signed by: Elias Rogers MD CC: Germania Murray DO Technologist: SHREYA Ferrari Trscrpt Dt/ (1558)[email or web address] Orig Print D/T: S: 06/28/2022 (1602) CTDI: DLP: [place] FSED NAME: JD COOMBS [address] [place] [address] PHYS: [email or web address] - [place] [address] : 1970 AGE: 52 SEX: M LOC: D.RER PHONE #: EXAM DATE: 06/28/2022 STATUS: REG ER FAX #: RAD NO: DC Dt: PAGE2 Signed Report- CT ABD PELVIS [id number] 15:58:00 [facility] : 1970 Sex: M Patient Name: JD COOMBS Unit No: [id number] EXAMS: CPT CODE: [id number] CT ABD PELVIS W/CONT 42356 Reason: ABD PAIN HISTORY: ABD PAIN TECHNIQUE: [...] patient size, and/or utilization of iterative reconstruction technique. Location: W1 Comparison study: None FINDINGS: The images of the lung bases demonstrate no masses, effusions or infiltrates. Heart size is normal. There is no pericardial effusion. The liver is homogeneous, free of focal masses and dilated intrahepatic ducts. The gallbladder is contracted. The spleen is normal in size and contour. The pancreas is morphologically normal. No mass, pancreaticduct dilatation or peripancreatic edema is visible. The [...] not confidently seen. There is no pericecal inflammation.There is mild stranding in the root of mesentery. No retroperitoneal lymphadenopathy is present. The aorta is of normal caliber. The IVC is patent. The portal vein is patent. No evidence of ascites. Abdominal wall is intact. No significant bone lesions. IMPRESSION: 1. Mild nonspecific stranding along the root of the mesentery. Consider possibility of mesenteritis. [place] FSED NAME: JD COOMBS [address] [place] [address] PHYS: [email or web address] - [place] [address] : 1970 AGE: 52 SEX: M LOC: D.RER PHONE #: EXAM DATE: 06/28/2022 STATUS: DEP ER FAX #: RAD NO: DC Dt: PAGE 1 Signed Report (CONTINUED) Patient Name: JD COOMBS Unit No: [id number] EXAMS: CPTCODE: [id number] CT ABD PELVIS W/CONT 27767 (Continued) Reason: ABD PAIN at 1558 Reported and signed by: Elias Rogers MD CC: Germania Kirkpatrick; Emiliano Murray DO Technologist: SHREYA Ferrari Trscrpt Dt/ (1558)[email or web address] Orig Print D/T: S: 06/28/2022 (1602) CTDI: DLP: [place] FS[facility] NAME: JD COOMBS [address] [place] [address] PHYS: [email or web address] - [place] [address] : 1970 AGE: 52 SEX: M LOC: D.RER PHONE #: EXAM DATE: 06/28/2022 STATUS: DEP ER FAX #: RAD NO: DC Dt: PAGE 2 Signed ReportTROPONIN I [id number] 14:59:00* Test Item Value Reference Range Interpretation Comme nts TROPONIN I RAPID (test code = TROPIRAP) 0.02 NG/ML 0.00-0.08 N Performed by cer tified packaging operator at [facility] - The use of serial sampling and testing protocol is a recommended practice.- An elevated troponin level alone is often not sufficient for diagnosis of myocardial infarction. CBC W/AUTO [id number] 14:52:00* Test Item Value Reference Range Interpretation Comme nts WHITE BLOOD CELL (test code = WBC) 11.50 x10 3/uL 4.80-10.80 H RED BLOOD CELL (test code = RBC) 5.65 x10 6/uL 4.7-6.1 N HEMOGLOBIN (test code = HGB) 15.5 G/DL 14.0-17.0 N HEMATOCRIT (test code = HCT) 47.5 % 42-52 N MEAN CELL VOLUME (test code = MCV) 84.1 FL 80-94 N MEAN CELL HGB (test code = MCH) 27.4 PG 27-31 N MEAN CELL HGB CONCENTRATION (test code = MCHC) 32.6 G/DL 33-37 L RED CELL DISTRIBUTION WIDTH (test code = RDW) 13.1 % 11.5-14.5 N PLATELET COUNT (test code = PLT) 227 x10 3/uL 150-450 N MEAN PLATELET VOLUME (test code = MPV) 10.7 FL 7.4-10.4 H NEUTROPHIL % (test code = NT%) 69.3 % 42-86 N LYMPHOCYTE % (test code = LY%) 24.5 % 24-44 N MIXED % (test code = MX%) 6.2 % MIXED PERCENTAGE AND ABSOLUTE INCLUDE MONOCYTE, BASOPHIL ANDEOSINOPHIL COUNTS. NEUTROPHIL # (test code = NT#) 8.00 x10 3/uL 1.8-7.7 H LYMPHOCYTE # (test code = LY#) 2.80 x10 3/uL 1.0-4.8 N MIXED # (test code = MX#) 0.7 k/mm3 MIXED PERCENTAGE AND ABSOLUTE INCLUDE MONOCYTE, BASOPHIL ANDEOSINOPHIL COUNTS. Notes Date/Time Note Provider Source 2023-03-25 15:57:00 [facility] ([facility]) OR A CAMPUS OF [facility] EMERGENCY PROVIDER REPORT REPORT#:[id number] REPORT STATUS: Signed DATE:03/25/23 TIME: 1556 PATIENT: JD COOMBS UNIT #: [id number] ROOM/BED: AGE: 52 SEX: M PCP PHYS: Undefined Provider SERVICE AUTHOR: Ayla Vences * ALL edits or amendments must be made on the electronic/computer document * Ru,Sarah 03/25/23 3167: HPI-Abd Pain M 40 and Over Free Text HPI Notes Free Text HPI Notes Patient is a 52-year-old male who presents to the ED with complaints of abdominal pain, diarrhea, and belching since 4 AM this morning. States the pain is located in his umbilical region and is cramping. States he tried Imodium at 6:30 AM without symptom relief. Denies blood in stool, nausea, vomiting, fever, chills, or any other complaints at this time. General Confirmed Patient Yes Initial Greet Date/Time 03/25/23 1532 Presentation Chief Complaint Abdominal pain, Diarrhea moderate Sudden in Onset? Yes Risk-Abd Pain M 40 and Over )( Abdominal Aortic Aneurysm Risk factors reviewed Past Medical History - Adult Stated Complaint ABDOMINAL PAIN-DIARRHEA Allergies Coded Allergies: Penicillins (HIVES 09/19/14) Home Medications Active Scripts KETOROLAC (TORADOL) 10 MG PO Q6H PRN PRN PAIN KETOROLAC (TORADOL) 10 MG PO Q6H PRN PRN PAIN #20 TABS Prov: 06/28/22 NAPROXEN (NAPROSYN) 500 MG PO BID PRN PRN PAIN NAPROXEN (NAPROSYN) 500 MG PO BID PRN PRN PAIN #15 TABS Prov: 10/16/22 CYCLOBENZAPRINE (FLEXERIL) 10 MG PO Q8H PRN PRN MUSCLE SPASMS/PAIN CYCLOBENZAPRINE (FLEXERIL) 10 MG PO Q8H PRN PRN MUSCLE SPASMS/PAIN #15 TABS Prov: 10/16/22 LIDOCAINE (LIDODERM 5%) 1 PATCH TRANSDERM DAILY LIDOCAINE (LIDODERM 5%) 1 PATCH TRANSDERM DAILY #30 PATCHES Prov: 10/16/22 GEMFIBROZIL (LOPID) 600 MG PO BID Reported Medications LISINOPRIL/HCTZ (ZESTORETIC 20/12.5 MG) Review of Nursing Notes Rev avail, and agree Past Medical History: Reports: Hypertension. Additional Medical History Hypertension, sleep apnea, dyslipidemia Physical Exam Vital Signs Review of Vital Signs Reviewed, Vital signs normal Focused PE General/Const General/Const Awake, Alert, No acute distress, Well appearing, Well developed , Well hydrated, Well nourished, Cooperative, Not toxic appearing Resp/Chest Respiratory/Chest Atraumatic, Breath sounds NL, Breath sounds = bilat, No respiratory distress, No rales, No rhonchi, No wheezing, No retractions, No stridor, No chest tenderness, No chest wall deformity, No crepitus Cardiovascular Cardiovascular Heart rate NL, Regular rhythm, Heart sounds NL, No gallop, No murmurs, No rubs, Cap refill not delayed, Peripheral circulation NL, Pulses = bilaterally, No gross BP differential Abdomen/GI Tenderness/Guarding/Rebound Tender diffuse. Organomegaly/Mass/Hernia Negative: Hepatomegaly, Splenomegaly, Pulsatile mass, Aortic bruit, Mass present, Hernia inguinal R, Hernia inguinal L, Hernia umbilical, Hernia ventral, Hernia is reducible, Hernia not reducible, Hernia is incarcerated, Hernia is strangulated, Hernia is tender, Hernia is erythematous. Bowel Sounds/Distention Bowel sounds hyperactive, Distention mild. MS Back Back Atraumatic, Inspection NL, Full range of motion, Painless range of motion, Non-tender, No midline vertebral tend, No paraspinal tenderness, No muscle spasm, Straight leg raise neg, No CVA tenderness Interpretation Diagnostics Lab Results Interpretation Results Laboratory Tests 03/25/23 1614: [Embedded Image Not Available] Laboratory Tests: 03/25 03/25 03/25 1620 1614 1614 Chemistry Sodium (133 - 145 MMOL/L) 137 Potassium (3.6 - 5.2 MMOL/L) 4.1 Chloride (100 - 108 MMOL/L) 101 Carbon Dioxide (22 - 32 MMOL/L) 25 BUN (6 - 20 MG/DL) 21 H Creatinine (0.60 - 1.00 MG/DL) 1.09 H Estimated GFR (MDRD) (56 - 130) 81 Glucose (65 - 99 MG/DL) 110 H Lactic Acid (0.5 - 2.2 MMOL/L) 0.6 Calcium (8.7 - 10.5 MG/DL) 10.0 Total Bilirubin (0.0 - 1.0 MG/DL) 0.9 Direct Bilirubin (0.0 - 0.3 MG/DL) 0.2 Indirect Bilirubin (0.0 - 0.7 MG/DL) 0.7 AST (15 - 37 Units/L) 27 ALT (30 - 65 Units/L) 80 H Alkaline Phosphatase (50 - 136 Units/L) 153 H Troponin I High Sens (< 76 ng/L) 10 Total Protein (6.4 - 8.2 G/DL) 7.7 Albumin (3.4 - 5.0 G/DL) 4.3 Globulin (1.5 - 3.8 G/DL) 3.4 Albumin/Globulin Ratio (1.1 - 2.2) 1.3 Lipase (16 - 77 U/L) 31 Hematology WBC (4.80 - 10.80 x10 3/uL) 12.27 H RBC (4.7 - 6.1 x10 6/uL) 5.67 Hgb (14.0 - 17.0 G/DL) 15.6 Hct (42 - 52 %) 47.2 MCV (80 - 94 FL) 83.2 MCH (27 - 31 PG) 27.5 MCHC (33 - 37 G/DL) 33.1 RDW Coeff of Rosa Elena (11.5 - 14.5 %) 13.5 Plt Count (150 - 450 x10 3/uL) 238 MPV (7.4 - 10.4 FL) 11.2 H Neut % (Auto) (42 - 86 %) 79.6 Lymph % (Auto) (24 - 44 %) 13.3 L C[place]ay % (Auto) (0.0 - 4.0 %) 5.9 H Eos % (Auto) (0.0 - 2.7 %) 0.9 Baso % (Auto) (0.0 - 0.5 %) 0.3 Eos # (Auto) (0.0 - 0.5 x10 3/uL) 0.11 Baso # (Auto) (0.0 - 0.2 x10 3/uL) 0.04 Absolute Neuts (auto) (1.8 - 7.7 x10 3/uL) 9.76 H Absolute Lymphs (auto) (1.0 - 4.8 x10 3/uL) 1.63 Absolute Monos (auto) (0.0 - 0.8 x10 3/uL) 0.73 Urines Ur Spec Description Clean Catch Urine Color (YELLOW) YELLOW Urine Appearance (CLEAR) HAZY Urine pH (5.5 - 7.0) 5.0 L Ur Specific [place] (1.001 - 1.035) 1.020 Urine Protein (NEGATIVE mg/dL) NEGATIVE Urine Glucose (UA) (NEGATIVE mg/dL) NEGATIVE Urine Ketones (NEGATIVE mg/dL) NEGATIVE Urine Blood (NEGATIVE) 1+ H Urine Nitrite (NEGATIVE) NEGATIVE Urine Bilirubin (NEGATIVE) 1+ H Urine Urobilinogen (NORMAL mg/dL) NORMAL Ur Leukocyte Esterase (NEGATIVE) NEGATIVE Urine RBC (NONE SEEN #/hpf) 2-5 H Urine WBC (<10 #/hpf) < 10 Ur Squamous Epith Cells (<100 #/lpf) 80 - 100 Urine Bacteria (NONE SEEN #/hpf) 1+ Urine Mucus (NONE SEEN #/lpf) 1+ Urine Culture Screen Criteria not met Urine Comment VOLUME 10-12 ML Recent Impressions: CAT SCAN - CT ABD PELVIS W/CONT 03/25 1716 Report Impression - Status: SIGNED Entered: 03/25/2023 1992 IMPRESSION: 1. Normal appendix. No evidence of bowel obstruction. 2. Minimal haziness involving central mesentery nonspecific in nature. Findings could represent sequelae of prior enteritis versus mesenteritis. No fluid collection or abscess. No other acute inflammatory process demonstrated. Impression By: [email or web address] - Sukhdev Mccatry MD Re-Evaluation MDM Free Text MDM Notes Additional Text Urinalysis shows increased blood, increased bilirubin, increase RBCs, bacteria, and mucus. Will treat for urinary tract infection. WBC 12.27. CT abdomen and pelvis shows normal appendix. No evidence of bowel obstruction. Minimal haziness involving central mesentery nonspecific in nature. Findings could represent sequelae of prior enteritis versus mesenteritis. No fluid collection or abscess. No other acute inflammatory process demonstrated. Discussed findings with patient and Dr. Webster. Will treat patient with ciprofloxacin and Flagyl for antimicrobial coverage. Will give Bentyl for abdominal cramping, Zofran for nausea, and Imodium for diarrhea. Discharge and follow-up discussed with patient. He expressed understanding and was agreeable with plan. )( Re-Evaluation/Progress #1 )( Re-Eval Status Improved Differential Diagnosis )( Differential Diagnosis Acute abdominal pain, Appendicitis, Constipation, Diarrhea, Diverticular disease, Gastroenteritis, Inflam bowel disease, Ischemic bowel, Peritonitis, Urinary tract infection Patient Discharge Departure Clinical Impression Clinical Impression Primary Impression: Enteritis Disposition Decision Discharge )( Discharged to Home Yes )( Time 1920 )( Date 03/25/23 Discharge/Care Plan Counseled Regarding Diagnosis, Lab results, Imaging studies, Prescriptions, Need for follow-up, When to return to ED (Auto) Prescriptions Current Visit Scripts CIPROFLOXACIN (CIPRO) 250 MG PO BID CIPROFLOXACIN (CIPRO) 250 MG PO BID #14 TABS UNTIL FINISHED metroNIDAZOLE (FLAGYL) 250 MG PO TID metroNIDAZOLE (FLAGYL) 250 MG PO TID #30 TABS FOR 10 DAYS DICYCLOMINE (BENTYL) 20 MG PO QID DICYCLOMINE (BENTYL) 20 MG PO QID #30 TABS ONDANSETRON (ZOFRAN) 4 MG PO Q6H PRN PRN NAUSEA/VOMITING ONDANSETRON (ZOFRAN) 4 MG PO Q6H PRN PRN NAUSEA/VOMITING #15 TABS LOPERAMIDE (IMODIUM) 2 MG PO ASDIR LOPERAMIDE (IMODIUM) 2 MG PO ASDIR #20 CAPS Prescriptions Reviewed Risks, Benefits, Alternative treatment Patient Instructions ED Gastroenteritis, Viral (Adult), Urinary Tract Infections in Men Additional Instructions Discussed with patient strict return precautions for any new or worsening signs or symptoms please return to the emergency department for further evaluation and treatment. Follow up: Please follow-up with your primary care doctor in the next 1-2 days. Please call tomorrow for an appointment. If you cannot follow-up with your primary care doctor please return to the ED for any urgent issues. Instructions: If you have any worsening of symptoms or any other concerns please return to the ED immediately. Please continue taking your home medications as directed. If you were given any prescriptions, please take them as directed. Do not drive or operate heavy machinery while taking narcotic medications. Do not drink alcohol while taking antibiotics or narcotics. Keep in mind that all X-Rays, CT's, MRI's and Ultrasounds read after hours may be over-read the following day by the staff radiologist DO NOT DRIVE AFTER TAKING NARCOTICS, SEDATIVES, OR OTHER MEDICATIONS THAT MAY CAUSE SEDATION. RETURN TO THE EMERGENCY DEPARTMENT NEEDED FOR WORSENING SYMPTOMS. THANK YOU FOR CHOOSING [facility] FOR YOUR EMERGENCY NEEDS. LUBA ROWAN EDITH CON BALLARD DOCTOR PARA VERLO EN 1 A 2 STILES. SI EMPEORAN BEN SINTOMAS REGRESE A LA EMERGENCIA. CIRA POR ELEGIR EL [facility] PARA BALLARD NECESIDADES DE LA EMERGENCIA. CLINICS: [facility] - [phone] [address] [place] [address] [facility] - [phone] [address] [place] [address] DENTAL CLINIC: [id number] (MUST ARRANGE NUECES AIDE FIRST) [phone] [facility] CLINIC: [id number] [address] ([place]) OPEN EVERY MONDAY - [phone] [facility]: [address] [place], [place] [phone] IF YOU HAVE NO INSURANCE AND LIVE IN [facility], YOU MAY QUALIFY FOR A NUECES AIDE CARE. CALL TO SIGN UP AND/OR CALL FOR A LIST OF REQUIREMENTS. FOR SCHEDULING APPOINTMENTS CALL . IF YOU LIVE IN [facility] AND DO NOT QUALIFY FOR NUECES AIDE, CONTACT [facility]: [address], [address], [place], [place] [phone] IF YOU LIVE IN [facility] AND HAVE NO INSURANCE, YOU MAY BE ABLE TO BE SEEN AT THE [facility] HEALTH DEPARTMENT LOCATED AT [address] [place] [address]. CALL [phone] TO SEE IF YOU QUALITY AND/OR TO SCHEDULE AN APPOINTMENT. [facility]: [address], [address], [place] [facility]: [address], [address], [place] [facility]: [address], [place] [facility]: [address], [place]: [address], [place]: [address] [facility] [place], [place] Discharge Note I have spoken with the patient and/or caregivers. I have explained the patient's condition, diagnoses and treatment plan based on the information available to me at this time. I have answered the patient's and/or caregiver's questions and addressed any concerns. The patient and/or caregivers have as good an understanding of the patient's diagnosis, condition and treatment plan as can be expected at this point. The vital signs have been stable. The patient's condition is stable and appropriate for discharge from the emergency department. The patient will pursue further outpatient evaluation with the primary care physician or other designated or consulting physician as outlined in the discharge instructions. The patient and/or caregivers are agreeable to this plan of care and follow-up instructions have been explained in detail. The patient and/or caregivers have received these instructions in written format and have expressed an understanding of the discharge instructions. The patient and/or caregivers are aware that any significant change in condition or worsening of symptoms should prompt an immediate return to this or the closest emergency department or a call to 911. Kamron Websterjamaal Resendiz 03/25/23 1619: Physical Exam Vital Signs Vital Signs First Documented: Result Date Time O2 Delivery Room air 03/25 1532 Pulse Ox 96 03/25 1552 B/P 167/95 03/25 1552 B/P Mean 119.2 03/25 1552 Temp 99.1 03/25 1552 Pulse 104 03/25 1552 Resp 17 03/25 1552 Last Documented: Result Date Time Pulse Ox 96 03/25 1552 B/P 167/95 03/25 1552 B/P Mean 119.2 03/25 1552 Temp 99.1 03/25 1552 Pulse 104 03/25 1552 Resp 17 03/25 1552 O2 Delivery Room air 03/25 1532 Interpretation Diagnostics Point of Care Testing Pulse Oximetry Pulse Ox % 97 On: Room air Interpretation Interpreted by me, Pulse oximetry normal Time 1603 ECG #1 Interpretation ECG Documented in MUSE Yes Date 03/25/23 Time 1603 Interpreted by and reviewed by me, Independently interpreted, ED physician NL ECG Interpretation Normal rate, Normal sinus rhythm, No acute ischemic changes, No STEMI, Normal QRS, Normal ST waves, Normal T waves, Normal axis, Normal intervals, No change from prior ECGs, Adequate tracing Rate 100 Re-Evaluation MDM Free Text MDM Notes Free Text MDM Notes 52-year-old male presents with diffuse abdominal cramping with diarrhea which started at 0400 this morning. Patient has a history of EGD and colonoscopy showing ulcers. Will provide IV fluids, IV pain medicine, IV Zofran and proceed with full abdominal pain workup. Partial differential includes appendicitis, inguinal hernia, SBO, intussusception, cholecystitis, choledocholithiasis, pancreatitis, gastritis, esophagitis, gastroenteritis, diverticulitis, colitis, constipation, UTI, ureterolithiasis, pyelonephritis, urinary retention, hydronephrosis, etc. ED Course Medication(s) Ordered Medication(s) Ordered: Antihistamine Drugs Sig/Benja Start time Last Medication Dose Route Stop Time Status Admin Diphenhydramine HCl 25 MG X1ED STA 03/25 1555 DC 03/25 IV 03/25 1556 1630 Autonomic Drugs Sig/Benja Start time Last Medication Dose Route Stop Time Status Admin Multi-Ingredient GI 40 ML X1ED STA 03/25 1555 DC 03/25 Drug PO 03/25 1556 1627 Central Nervous System Agents Sig/Benja Start time Last Medication Dose Route Stop Time Status Admin Acetaminophen 1,000 MG X1ED STA 03/25 1555 DC 03/25 PO 03/25 1556 1628 Diagnostic Agents Sig/Benja Start time Last Medication Dose Route Stop Time Status Admin Iopamidol 0 .STK-MED ONE 03/25 1705 DCr 03/25 IV 1738 Iopamidol 0 .STK-MED ONE 03/25 1705 DCr 03/25 IV 1738 Iopamidol 0 .STK-MED ONE 03/25 1704 DC 03/25 IV 1738 Electrolytic, Caloric, And Ismael Sig/Benja Start time Last Medication Dose Route Stop Time Status Admin Sodium Chloride 1,000 ML X1ED STA 03/25 1555 DC 03/25 IV 03/25 1654 1629 Gastrointestinal Drugs Sig/Benja Start time Last Medication Dose Route Stop Time Status Admin Famotidine 20 MG X1ED STA 03/25 1555 AC 03/25 Sodium Chloride 10 ML IV 03/26 0354 1632 Metoclopramide HCl 10 MG X1ED STA 03/25 1555 CAN IV 03/25 1556 Ondansetron Base 8 MG ONCE PRN 03/25 1555 DC 03/25 PO 1628 Patient Discharge Departure Vital Signs/Condition Vital Signs First Documented: Result Date Time O2 Delivery Room air 03/25 1532 Pulse Ox 96 03/25 1552 B/P 167/95 03/25 1552 B/P Mean 119.2 03/25 155 Temp 99.1 03/25 155 Pulse 104 03/25 1552 Resp 17 03/25 155 Last Documented: Result Date Time Pulse Ox 96 03/25 1552 B/P 167/95 03/25 155 B/P Mean 119.2 03/25 155 Temp 99.1 03/25 155 Pulse 104 03/25 155 Resp 17 03/25 155 O2 Delivery Room air 03/25 1532 All vital signs available at the time of this entry have been reviewed. Supervising Physician Note MidLv/Doc Saw Pt 1 I have personally seen the patient and I evaluated the patient along with involvement of the PA/STEAM FITTER SUPERVISOR. I agree with the PA/transit mechanic findings and plan. I have performed all aspects of MDM as documented including: evaluation of the patient/ patient's condition(s), review and analysis of available data, and determination of risk of patient management decisions. at 1824 at 0712 RPT #[id number] END OF REPORT [facility] 2022-10-16 20:00:00 [facility] ([facility] OR A CAMPUS OF [facility] EMERGENCY PROVIDER REPORT REPORT#:[id number] REPORT STATUS: Signed DATE:10/16/22 TIME: 1999 PATIENT: JD COOMBS UNIT #: [id number] ROOM/BED: AGE: 52 SEX: M PCP PHYS: No Primary or Family Physician SERVICE AUTHOR: Ever Smith III DO * ALL edits or amendments must be made on the electronic/computer document * HPI-Back Pain 40 and Over General Initial Greet Date/Time 10/16/221950 Presentation Chief Complaint Pain, lumbar Sudden in Onset? No Onset Occurred Today Symptom Duration Since onset Progression since Onset Constant Location Spinal lumbar area, Paraspinal lumbar Radiation Leg R, above knee. Migration/Movement None Pain/Sev: Onset Moderate Pain/Sev: Current Moderate Associated with Denies: Abdominal pain, Chest pain, Dyspnea, Dysuria, Hematuria, Inability to walk, Incontinence bladder, Incontinence bowel, Numbness, both lower ext, Tingling, both lower ext, Weakness, both lower ext. Exacerbated by Movement Relieved by Nothing Free Text HPI Notes Free Text HPI Notes 52-year-old male complaining of low back pain. He reports the pain started after he was attempting to catch a morbidly obese patient reportedly was falling from a stretcher Review of Systems ROS Statements All systems rev neg except as marked. Basic Review of Systems Basic ROS EYES: No redness, ENT: No sore throat, SKIN: No rash, PSYCH: NL thought content Past Medical History - Adult Stated Complaint INJURY Allergies Coded Allergies: Penicillins (HIVES 09/19/14) Home Medications Active Scripts KETOROLAC (TORADOL) 10 MG PO Q6H PRN PRN PAIN KETOROLAC (TORADOL) 10 MG PO Q6H PRN PRN PAIN #20 TABS Prov: 06/28/22 GEMFIBROZIL (LOPID) 600 MG PO BID Reported Medications LISINOPRIL/HCTZ (ZESTORETIC 20/12.5 MG) Review of Nursing Notes Rev avail, and agree Past Medical History: Reports: Hypertension. Additional Medical History Hypertension, sleep apnea, dyslipidemia Physical Exam Vital Signs Vital Signs First Documented: Result Date Time Pulse Ox 95 10/16 1946 B/P 120/85 10/16 1946 B/P Mean 96 10/16 1946 O2 Delivery Room air 10/16 1946 Temp 37.0 10/16 1946 Pulse 104 10/16 1946 Resp 18 10/16 1946 Last Documented: Result Date Time Pulse Ox 95 10/16 1946 B/P 120/85 10/16 1946 B/P Mean 96 10/16 1946 O2 Delivery Room air 10/16 1946 Temp 37.0 10/16 1946 Pulse 104 10/16 1946 Resp 18 10/16 1946 Review of Vital Signs Reviewed Focused PE General/Const General/Const Awake, Alert MS Neck Neck Atraumatic, Supple, No meningismus, Full range of motion, No swelling, Non-tender, No midline vertebral tend, No masses, No crepitus Resp/Chest Respiratory/Chest Breath sounds NL, Breath sounds = bilat, No respiratory distress, No rales, No rhonchi, No wheezing Cardiovascular Cardiovascular Heart rate NL, Regular rhythm, Heart sounds NL, No murmurs, Peripheral circulation NL Abdomen/GI Abdomen/GI Soft, Non-tender, No guarding, No rebound, No distention, No palpable mass, No pulsatile mass MS Back Flank/Spine/Paraspinal Lumbar paraspinal tend. MS Lower Extrem Lower Ext/Pelvis/MS Inspection NL, No swelling, Non-tender, No erythema, No deformity, Neurologic intact, Vascular intact, No edema Skin Skin Color NL, Warm, Dry, Turgor NL Rectum Rectum/Perineum Blood - occult heme neg, business unit controller passed, No gross blood, No fissures, No hemorrhoids, Sphincter tone NL Neurologic Neurologic Oriented X3, Speech NL, No motor deficits, No sensory deficits, Reflexes equal bilat Interpretation Diagnostics Lab Results Interpretation Results Recent Impressions: RADIOLOGY - XR L-SPINE 4+VIEWS 10/16 2000 Report Impression - Status: SIGNED Entered: 10/16/20222029 IMPRESSION: No evidence of acute osseous abnormality. Mild to moderate multilevel spondylosis. Impression By: [email or web address] - Sukhdev Joaquin MD Imaging Statement Radiographic studies reviewed and considered in the medical decision-making. Re-Evaluation MDM Re-Evaluation/Progress #1 Back Pain MDM Note The patient presented with acute back pain. The patient is now resting comfortably and feels better, is alert, talkative, interactive and in no distress. The repeat examination is unremarkable and benign. The patient is neurologically intact and is ambulatory in the ED. The patient has no fever, no bowel or bladder incontinence, no saddle anesthesia, and is otherwise alert and well-appearing. The history, physical examination, and diagnostics (if any) do not suggest the presence of acute spinal epidural abscess, acute spinal epidural bleed, cauda equina syndrome, abdominal aortic aneurysm, aortic dissection or other process requiring further testing, treatment or consultation in the emergency department. The vital signs have been stable. The patient's condition is stable and appropriate for discharge. The patient will pursue further outpatient evaluation with the primary care physician or other designated or consulting physician as indicated in the discharge instructions. ED Course Medication(s) Ordered Medication(s) Ordered: Central Nervous System Agents Sig/Benja Start time Last Medication Dose Route Stop Time Status Admin Ketorolac 60 MG X1ED STA 10/17 1999 DC 10/16 Tromethamine IM 10/16 Patient Discharge Departure Vital Signs/Condition Vital Signs First Documented: Result Date Time Pulse Ox 95 10/16 1946 B/P 120/85 10/16 1946 B/P Mean 96 10/16 1946 O2 Delivery Room air 10/16 1946 Temp 37.0 10/16 1946 Pulse 104 10/16 1946 Resp 18 10/16 1946 Last Documented: Result Date Time Pulse Ox 95 10/16 1946 B/P 120/85 10/16 1946 B/P Mean 96 10/16 1946 O2 Delivery Room air 10/16 1946 Temp 37.0 10/16 1946 Pulse 104 10/16 1946 Resp 18 10/16 1946 All vital signs available at the time of this entry have been reviewed. Clinical Impression Clinical Impression Primary Impression: Low back pain Disposition Decision Discharge )( Discharged to Home Yes )( Time 2034 )( Date 10/16/22 Discharge/Care Plan Counseled Regarding Diagnosis, Prescriptions, Need for follow-up (Auto) Prescriptions Current Visit Scripts NAPROXEN (NAPROSYN) 500 MG PO BID PRN PRN PAIN NAPROXEN (NAPROSYN) 500 MG PO BID PRN PRN PAIN #15 TABS CYCLOBENZAPRINE (FLEXERIL) 10 MG PO Q8H PRN PRN MUSCLE SPASMS/PAIN CYCLOBENZAPRINE (FLEXERIL) 10 MG PO Q8H PRN PRN MUSCLE SPASMS/PAIN #15 TABS LIDOCAINE (LIDODERM 5%) 1 PATCH TRANSDERM DAILY LIDOCAINE (LIDODERM 5%) 1 PATCH TRANSDERM DAILY #30 PATCHES Patient Instructions ED Back Pain (Acute or Chronic) Discharge Note I have spoken with the patient and/or caregivers. I have explained the patient's condition, diagnoses and treatment plan based on the information available to me at this time. I have answered the patient's and/or caregiver's questions and addressed any concerns. The patient and/or caregivers have as good an understanding of the patient's diagnosis, condition and treatment plan as can be expected at this point. The vital signs have been stable. The patient's condition is stable and appropriate for discharge from the emergency department. The patient will pursue further outpatient evaluation with the primary care physician or other designated or consulting physician as outlined in the discharge instructions. The patient and/or caregivers are agreeable to this plan of care and follow-up instructions have been explained in detail. The patient and/or caregivers have received these instructions in written format and have expressed an understanding of the discharge instructions. The patient and/or caregivers are aware that any significant change in condition or worsening of symptoms should prompt an immediate return to this or the closest emergency department or a call to 911. Quality Measures BP F/U for HTN BP in normal range Smoking Cessation Screened, non user at 0032 RPT #[id number] END OF REPORT [facility] 2022-06-28 14:40:00 [facility] OR A [facility]AMPUS OF [facility] EMERGENCY PROVIDER REPORT REPORT#:[id number] REPORT STATUS: Signed DATE:06/28/22 TIME: 1439 PATIENT: JD COOMBS UNIT #: [id number] ROOM/BED: AGE: 52 SEX: M PCP PHYS: Undefined Provider SERVICE AUTHOR: Germania Kirkpatrick APRNNP * ALL edits or amendments must be made on the electronic/computer document * Germania Kirkpatrick 06/28/22 1440: HPI-Abd Pain M 40 and Over Free Text HPI Notes Free Text HPI Notes 52-year-old, obese male with a history of hypertension, sleep apnea and dyslipidemia arrives to the emergency department stating that he had bloating on Monday with nonradiating lower abdominal pain and nausea accompanied with burping. States notes that on Monday he did notice that he was having diarrhea which has increased over the last 24 hours. Patient states diarrhea x10 over the last 24 hours. Denies any chest pain or shortness of breath. For his history of hypertension he does take lisinopril 20 mg but has not taken this today due to the fact that he felt this would just go straight through him with a history of diarrhea. Denies any bloody stool or vomiting. General Confirmed Patient Yes Initial Greet Date/Time 06/28/227 Presentation Chief Complaint Abdominal pain, Diarrhea moderate Hx Obtained From Patient Sudden in Onset? No Risk-Abd Pain M 40 and Over )( Abdominal Aortic Aneurysm Risk factors reviewed Review of Systems Free Text ROS Notes Free Text ROS Notes CONSTITUTIONAL: No fever, fatigue or weight loss. SKIN: No rash. HENT: No congestion, ear pain, or sore throat. EYES: No recent vision problems or eye pain. ENDOCRINE: No thyroid problems. No polyuria or polydipsia. CARDIOVASCULAR: No chest pain or edema. RESPIRATORY: No cough, shortness of breath, congestion, or wheezing. GASTROINTESTINAL: No vomiting, bloody stools or diarrhea. GENITOURINARY: No dysuria. MUSCULOSKELETAL: No joint pain or swelling. LYMPHATIC: No swollen glands. NEUROLOGIC: No seizures. No headache, focal weakness or sensory changes. HEMATOLOGIC: No unusual bruising or bleeding. PSYCHIATRIC: No depression or anxiety. Past Medical History - Adult Stated Complaint ABDOMINAL PAIN Allergies Coded Allergies: Penicillins (UNKNOWN 06/28/22) Review of Nursing Notes Rev avail, and agree Additional Medical History Hypertension, sleep apnea, dyslipidemia Physical Exam Vital Signs Vital Signs First Documented: Result Date Time Pulse Ox 97 06/28 1425 B/P 189/107 / 1425 B/P Mean 134 / 1425 O2 Delivery Room air 06/28 1425 Temp 98.7 06/28 1425 Pulse 99 06/28 1425 Resp 16 06/28 1425 Last Documented: Result Date Time Pulse Ox 95 06/28 1709 B/P 168/90 06/28 1709 B/P Mean 116 / 1709 Pulse 83 04/ 1709 Resp 16 06/28 1709 O2 Delivery Room air 06/28 1425 Temp 98.7 06/28 1425 Review of Vital Signs Reviewed Free Text PE Notes Free Text PE Notes GENERAL: No acute distress, non-toxic appearance. HEAD: Normal with no signs of head trauma. EYES: PERRLA, EOMI, conjunctiva normal, no discharge. EARS: Hearing grossly intact. NOSE: Normal. THROAT: Oropharynx is normal. NECK: Normal range of motion, no tenderness, supple, no lymphadenopathy, No adenopathy, no JVD. CHEST: Clear breath sounds bilaterally. No wheezes, rales, or rhonchi. CARDIAC: Regular rate and rhythm. S1 and S2, without murmurs, gallops, or [...] Alert and oriented x 3. No focal sensory or strength deficits. Speech normal. Follows commands appropriately. PSYCHIATRIC: Normal Affect, judgement and mood. SKIN: Normal appearance with no rashes or lesions. Interpretation Diagnostics Lab Results Interpretation Results Laboratory [...] Lymphs (auto) (1.0 - 4.8 x10 3/uL) 2.80 Urines Ur Spec Description Clean Catch Urine Color (YELLOW) Yellow Urine Appearance (CLEAR) CLEAR Urine pH (5.5 - 7.0) 6.0 Ur Specific [place] (1.001 - 1.035) 1.010 Urine Protein (NEGATIVE [...] Patient to be treated today for mesenteric adenitis via CT scan results. He does have pain located to the lower aspect of his right and left quadrant as a "burning" sensation. Diarrhea approximately x10 without any vomiting. Complains of some continued nausea therefore will be provided with antiemetic for home use. NSAIDs provided for anti-inflammatory purposes, discussed risks such as bowel obstruction and when to return to the emergency room. Encouraged to follow with primary care provider or local community center, resources provided at time of discharge. Patient verbalizes understanding, agrees to plan of care and discharge )( Re-Evaluation/Progress #1 )( Re-Eval Status Improved Re-Eval Abdomen Soft, Non-tender, No guarding, No rebound Abd Pain MDM Note M > 40 The patient is resting comfortably and feels better, is alert and in no distress. The repeat examination is unremarkable and benign; in particular, there is no discomfort at McBurney's point and there is no pulsatile mass. The history, exam, diagnostic testing, and current condition do not suggest acute appendicitis, bowel obstruction, acute cholecystitis, bowel perforation, major gastrointestinal bleeding, severe diverticulitis, abdominal aortic aneurysm, mesenteric ischemia, volvulus, sepsis, or other significant pathology to warrant further testing, continued ED treatment, admission, or surgical evaluation at this point. The vital signs have been stable. The patient does not have uncontrollable pain, intractable vomiting, or other significant symptoms. The patient's condition is stable and appropriate for discharge from the emergency department. The patient will pursue further outpatient evaluation with the primary care physician or other designated or consulting physician as indicated in the discharge instructions. ED Course Medication(s) Ordered Medication(s) Ordered: Autonomic Drugs Sig/Benja Start time Last Medication Dose Route Stop Time Status Admin Hyoscyamine Sulfate 0.125 MG X1ED STA 06/28 1436 DC 06/28 SL 06/28 1437 1448 Cardiovascular Drugs Sig/Benja Start time Last Medication Dose Route Stop Time Status Admin Metoprolol Tartrate 25 MG X1ED STA 06/28 1440 DC 06/28 PO 06/28 1441 1448 Central Nervous System Agents Sig/Benja Start time Last Medication Dose Route Stop Time Status Admin Ketorolac 30 MG X1ED STA 06/28 1724 DC 06/28 Tromethamine IV 06/28 1725 1742 Diagnostic Agents Sig/Benja Start time Last Medication Dose Route Stop Time Status Admin Iopamidol 0 .STK-MED ONE 06/28 1507 DC 04 IV 1518 Electrolytic, Caloric, And Ismael Sig/Benja Start time Last Medication Dose Route Stop Time Status Admin Sodium Chloride 1,000 ML X1ED STA 06/28 1436 DC 04 IV 06/28 1535 1447 Gastrointestinal Drugs Sig/Benja Start time Last Medication Dose Route Stop Time Status Admin Ondansetron HCl 4 MG ONCE PRN 06/28 1440 DC 04 IV 1448 Patient Discharge Departure Vital Signs/Condition [...] air 06/28 1425 Temp 98.7 06/28 1425 All vital signs available at the time of this entry have been reviewed. Condition Stable Clinical Impression Clinical Impression Primary Impression: Mesenteric adenitis Time of Impression 1728 Disposition Decision Discharge )( Discharged to Home Yes )( Time 1728 )( Date 06/28/22 Discharge/Care Plan Counseled Regarding Diagnosis, Imaging studies, Prescriptions, Need for follow- up, When to return to ED (Auto) Prescriptions Current Visit Scripts KETOROLAC (TORADOL) 10 MG PO Q6H PRN PRN PAIN KETOROLAC (TORADOL) 10 MG PO Q6H PRN PRN PAIN #20 TABS Prescriptions Reviewed Risks, Benefits, Alternative treatment Patient Instructions ED Adenitis, Mesenteric Additional Instructions Take your anti-inflammatories as prescribed. Follow up: Please follow-up with your primary care doctor in the next 1-2 days. Please call tomorrow for an appointment. If you cannot follow-up with your primary care doctor please return to the ED for any urgent issues. Instructions: If you have any worsening of symptoms or any other concerns please return to the ED immediately. Please continue taking your home medications as directed. If you were given any prescriptions, please take them as directed. Do not drive or operate heavy machinery while taking narcotic medications. Do not drink alcohol while taking antibiotics or narcotics. Keep in mind that all X-Rays, CT's, MRI's and Ultrasounds read after hours may be over-read the following day by the staff radiologist DO NOT DRIVE AFTER TAKING NARCOTICS, SEDATIVES, OR OTHER MEDICATIONS THAT MAY CAUSE SEDATION. RETURN TO THE EMERGENCY DEPARTMENT NEEDED FOR WORSENING SYMPTOMS. THANK YOU FOR CHOOSING [facility] FOR YOUR EMERGENCY NEEDS. LUBA ROWAN EDITH CON BALLARD DOCTOR PARA VERLO EN 1 A 2 STILES. SI EMPEORAN BEN SINTOMAS REGRESE A LA EMERGENCIA. CIRA POR ELEGIR EL [facility] PARA BALLARD NECESIDADES DE LA EMERGENCIA. CLINICS: [facility] - [phone] [address] [place] [address] [facility] CLINIC - [phone] [address] [place] [address] D[facility]AL CLINIC: [address] (MUST ARRANGE NUECES AIDE FIRST) [phone] [facility]: [address] (FLOUR BLUFF) OPEN EVERY MONDAY - [phone] [facility]: [address] [place], [place] [phone] IF YOU HAVE NO INSURANCE AND LIVE IN [facility], YOU MAY QUALIFY [facility]. CALL TO SIGN UP AND/OR CALL FOR A LIST OF REQUIREMENTS. FOR SCHEDULING APPOINTMENTS CALL . IF YOU LIVE IN [facility] AND DO NOT QUALIFY FOR [facility] AIDE, CONTACT MONIKA DAVE: [address], [address], [place], [place] [phone] IF YOU LIVE IN [facility] AND HAVE NO INSURANCE, YOU MAY BE ABLE TO BE SEEN AT THE [facility] HEALTH DEPARTMENT LOCATED AT [facility] [place]. CALL [phone] TO SEE IF YOU QUALITY AND/OR TO SCHEDULE AN APPOINTMENT. [facility]: [address], [address], [place] [facility]: [address], [address] [facility]: [address], [place] [facility]: [address], [place]: [address], [place]: [address] [facility], [facility] [place], [place] Discharge Note I have spoken with the patient and/or caregivers. I have explained the patient's condition, diagnoses and treatment plan based on the information available to me at this time. I have answered the patient's and/or caregiver's questions and addressed any concerns. The patient and/or caregivers have as good an understanding of the patient's diagnosis, condition and treatment plan as can be expected at this point. The vital signs have been stable. The patient's condition is stable and appropriate for discharge from the emergency department. The patient will pursue further outpatient evaluation with the primary care physician or other designated or consulting physician as outlined in the discharge instructions. The patient and/or caregivers are agreeable to this plan of care and follow-up instructions have been explained in detail. The patient and/or caregivers have received these instructions in written format and have expressed an understanding of the discharge instructions. The patient and/or caregivers are aware that any significant change in condition or worsening of symptoms should prompt an immediate return to this or the closest emergency department or a call to 911. Emiliano Murray 06/30/22 1031: Patient Discharge Departure Supervising Physician Note MidLv Saw Pt Alone I have reviewed the PA/STEAM FITTER SUPERVISOR's note and plan of care. I was available for consultation as needed at all times during the patient's visit in the emergency department. I agree with the clinical impression, plan and disposition. at [phone] at [phone] [facility] #:[id number] END OF REPORT [facility]
--- NOTE | 2024-01-15 12:27 | RAD REPORT ---
EXAM: Extremity Nonvascular Limited HISTORY: right tricep, mass? RIGHT COMPARISON: None TECHNIQUE: Sonographic grayscale and color flow imaging of the medial left elbow including the region of interest as described by the patient. FINDINGS: Mildly expansile echogenic mostly well-circumscribed mass in the area of palpable abnormality, measur ing 2.5 x 2.5 x 1.3 cm, with internal echotexture similar to adjacent subcutaneous fat. There is mild central heterogeneity, and mild vascularity on color duplex imaging. IMPRESSION: Mildly expansile mass with internal architecture suggestive of lipomatous tissue, although centrally there is mild heterogeneity and mild vascularity. Superimposed infection or additional soft tissue component centrally, which may relate to mixed mesenchymal pathology versus malignancy may be possibl e. Additional evaluation by contrast-enhanced MRI would be helpful, which can be performed on an outpatient basis.
--- NOTE | 2024-01-15 12:30 | RAD REPORT ---
EXAMINATION: UPPER EXTREMITY VENOUS UNILATE CLINICAL INDICATION: Male, 53 years old. [facility] MAIN Pain;Swelling Bed Name: [facility] TECHNIQUE: Complete venous duplex sonography of the left upper extremity was performed. The examinati on included compression for vein patency, color Doppler imaging and flow augmentation in response to distal compression of the internal jugular, brachiocephalic, subclavian, axillary, brachial, radia l, ulnar, cephalic and basilic veins. COMPARISON: No prior exam. FINDINGS: Duplex sonography testing of the veins of the left upper extremity is completed. Color flow imaging s hows all veins to be compressible with appropriate color filling. Pulsatile and phasic flow is present within the upper extremity deep and superficial veins examined. IMPRESSION: There is no deep vein or superficial vein thrombosis.
--- NOTE | 2024-01-15 12:32 | EDPHYS ---
Physician Documentation [facility] Name: Jd Devries Age: 53 yrs Sex: Male : 1970 Arrival Date: 01/15/2024 Time: 11:12 Bed IW1 Private MD: ED Physician Jose Eisenberg HPI: 01/14 12:29 This 53 yrs old Male presents to ER via Ambulatory with complaints of Arm Pain. sb4 12:47 The patient or guardian complains of pain, that is acute. The complaints affect the sb4 right tricep. Context: resulted from nothing. Onset: The symptoms/episode began/occurred 2.5 month(s) ago. Treatment prior to arrival includes: over the counter medications. The patient has not experienced similar symptoms in the past. Patient reports pain in his arm for 2-1/2 months. He states that it comes and goes and is typically worse with exertion. He states that a few weeks ago, he noticed a lump area on his tricep. He is concerned about it being a blood clot. Historical: - Allergies: 11:15 PENICILLINS; ll1 - PMHx: 11:15 Arthritis; BPH; Depression/Anxiety; High Cholesterol; Hypertension; Sleep Apnea; ll1 11:17 Diabetes mellitus; ll1 - PSHx: 11:15 heart cath; ll1 11:17 colonoscopy/endoscopy; ll1 - Immunization history:: Adult Immunizations up to date. - Infectious Disease History:: Denies. - Social history:: Smoking status: Patient reports the use of cigarette tobacco products, cigars. ROS: 12:47 Constitutional: Negative for fever, chills, and weight loss, sb4 12:47 MS/extremity: Positive for pain, swelling, 12:47 All other systems are negative, Exam: 12:47 Constitutional: This is a well developed, well nourished patient who is awake, alert, sb4 and in no acute distress. Head/Face: Normocephalic, atraumatic. Eyes: Extra-ocular motions intact. Periorbital areas with no swelling, redness, or edema. ENT: Mucous membranes moist. Skin: Warm, dry with normal turgor. Normal color with no rashes, no lesions, and no evidence of cellulitis. 12:47 Musculoskeletal/extremity: DVT Exam: no appreciated bluish discoloration, no erythema, no increased warmth, pain, swelling, tenderness, moderate unfixed mass noted right lower tricep region. Vital Signs: 11:18 BP 155 / 97; Pulse 77; Resp 17; Temp 97; Pulse Ox 97% ; Weight 163.29 kg; Height 5 ft. ll1 10 in. ; Pain 3/10; 12:48 BP 151 / 91; Pulse 71; Resp 17; Pulse Ox 97% ; ll1 11:18 Body Mass Index 51.65 (163.29 kg, 177.8 cm) ll1 11:18 Pain Scale: Adult ll1 MDM: 11:21 Medical Screening Exam initiated sb4 12:50 Data reviewed: vital signs, nurses notes, radiologic studies, and as a result, I will sb4 discharge patient. Counseling: I had a detailed discussion with the patient and/or guardian regarding the historical points, exam findings, and any diagnostic results supporting the discharge/admit diagnosis, radiology results, the need for outpatient follow up, for definitive care. Special discussion: Further emergent ED testing is not indicated at this point in time. I discussed with the patient/guardian in detail the need to arrange with the PCP or specialist further outpatient testing, MRI. 01/14 11:27 Order name: US Extrmty Nonvasular Limited; Complete Time: 12:27 sb4 01/14 11:32 Order name: UPPER EXTREMITY VENOUS UNILATE; Complete Time: 12:30 EDMS Administered Medications: No medications were administered Disposition Summary: 01/15/24 12:31 Discharge Ordered Notes: Location: Home sb4 Problem: an ongoing problem sb4 Symptoms: are unchanged sb4 Condition: Stable sb4 Diagnosis - Pain in left upper arm sb4 - Localized swelling, mass and lump, left upper limb sb4 Followup: sb4 - With: Private Physician - When: 1 week - Reason: Further diagnostic work-up Discharge Instructions: - Discharge Summary Sheet sb4 - [place] sb4 Forms: - Patient Portal Instructions sb4 - Leadership Thank You Letter sb4 Signatures: Dispatcher [employer] Sully Belle, RN RN ll1 Sadia May PA-C PA-C sb4 Corrections: (The following items were deleted from the chart) 11:27 11:27 Extremity Venous Uni Ltd+US.RAD.BRZ ordered. EDMS EDMS 11:27 11:27 Extrmty Nonvasular Limited+US.RAD.BRZ ordered. EDMS EDMS
--- NOTE | 2024-01-15 12:32 | ER ---
Nurse's Notes [facility] Name: Jd Devries Age: 53 yrs Sex: Male : 1970 Arrival Date: 01/15/2024 Time: 11:12 Bed IW1 Private MD: Diagnosis: Pain in left upper arm;Localized swelling, mass and lump, left upper limb Presentation: 01/14 11:15 Chief complaint: Chief complaint: Patient states: L arm pain for 2.5 months. No fever. ll1 Coronavirus screen: Client denies travel out of the [place] in the last 14 days. At this time, the client does not indicate any symptoms associated with coronavirus-19. Ebola Screen: Patient denies travel to an Ebola-affected area in the 21 days before illness onset. Initial Sepsis Screen: Does the patient meet any 2 criteria? No. Patient's initial sepsis screen is negative. Does the patient have a suspected source of infection? No. Patient's initial sepsis screen is negative. Risk Assessment: Do you want to hurt yourself or someone else? Patient reports no desire to harm self or others. 11:15 Method Of Arrival: Ambulatory 1 11:18 Onset of symptoms was October 26, 2023. ll1 11:18 Acuity: PARRIS 3 ll1 Triage Assessment: 11:20 General: Appears in no apparent distress. Behavior is calm, cooperative, appropriate ll1 for age. Pain: Complains of pain in left arm. Musculoskeletal: Circulation, motion, and sensation intact. Capillary refill < 3 seconds, in left fingers. Reports pain in left arm. Historical: - Allergies: 11:15 PENICILLINS; ll1 - PMHx: 11:15 Arthritis; BPH; Depression/Anxiety; High Cholesterol; Hypertension; Sleep Apnea; ll1 11:17 Diabetes mellitus; ll1 - PSHx: 11:15 heart cath; ll1 11:17 colonoscopy/endoscopy; ll1 - Immunization history:: Adult Immunizations up to date. - Infectious Disease History:: Denies. - Social history:: Smoking status: Patient reports the use of cigarette tobacco products, cigars. Screenin:49 [facility] ED Fall Risk Assessment (Adult) History of falling in the last 3 months, ll1 including since admission No falls in past 3 months (0 pts) Confusion or Disorientation No (0 pts) Intoxicated or Sedated No (0 pts) Impaired Gait No (0 pts) Mobility Assist Device Used No (0 pt) Altered Elimination No (0 pt) Score/Fall Risk Level 0 - 2 = Low Risk Maintained a safe environment, Hourly rounding (assess needs \T\ fall precautionary measures) done. Abuse screen: Denies threats or abuse. Nutritional screening: No deficits noted. Tuberculosis screening: No symptoms or risk factors identified. Assessment: 12:49 Reassessment: No changes from previously documented assessment. Patient and/or family ll1 updated on plan of care and expected duration. Pain level reassessed. Patient is alert, oriented x 3, equal unlabored respirations, skin warm/dry/pink. Vital Signs: 11:18 BP 155 / 97; Pulse 77; Resp 17; Temp 97; Pulse Ox 97% ; Weight 163.29 kg; Height 5 ft. ll1 10 in. ; Pain 3/10; 12:48 BP 151 / 91; Pulse 71; Resp 17; Pulse Ox 97% ; ll1 11:18 Body Mass Index 51.65 (163.29 kg, 177.8 cm) ll1 11:18 Pain Scale: Adult ll1 ED Course: 11:15 Patient arrived in ED. ll1 11:15 Arm band placed on. ll1 11:17 Sadia May PA-C is [facility]. sb4 11:17 Jose Eisenberg MD is Attending Physician. sb4 11:19 Triage completed. ll1 11:51 US Extrmty Nonvasular Limited In Process Unspecified. EDMS 11:51 UPPER EXTREMITY VENOUS UNILATE In Process Unspecified. EDMS 12:49 No provider procedures requiring assistance completed. Patient did not have IV access ll1 during this emergency room visit. 12:50 Patient has correct armband on for positive identification. Provided Education on: ll1 return to worsening symptoms. Administered Medications: No medications were administered Medication: 12:50 VIS not applicable for this client. ll1 Outcome: 12:31 Discharge ordered by . sb4 12:49 Discharged to home ambulatory, ll1 12:49 Condition: stable 12:49 Discharge instructions given to patient, Instructed on discharge instructions, follow up and referral plans. Demonstrated understanding of instructions, follow-up care, 12:50 Patient left the ED. ll1 Signatures: Dispatcher [employer] EDSully Carter RN RN ll1 Sadia May PA-C PAQue sb4 Corrections: (The following items were deleted from the chart) 11:15 Chief complaint: nettie sheffield
[2024-01-15 15:12] VITALS: TEMP 97; O2SAT 97
[2024-01-15 15:14] VITALS: BP 151/91
== END 2024-01-15 12:50 | disposition home or self-care (01) ==
LOC: ER 11:12
DX: R22.32 Localized swelling, mass and lump, left upper limb (principal); Z72.0 Tobacco use
CPT/HCPCS: 76882; 93971; 99282

== ENCOUNTER 2024-06-13 21:19 | Emergency (ER) | payer BC ==
--- OUTSIDE RECORDS SUMMARY | 2024-06-13 21:22 | XMS REPORT | Continuity of Care Document ---
Author Name Unknown Address [address] [facility] [place] [address] [facility] Address [address] [place] [address] Care Team Providers Care Environmental Associate Name Role Phone Lenore Roper Attending Clinician Unavailable Meron Jaquez Attending Clinician Unavailable RACHID GO Attending Clinician UnaARSH Sarkar Attending Clinician Unavailable Agusto Webster Attending Clinician Unavailable Ever Smith Attending Clinician Unavailable Emiliano Murray Attending Clinician Unavailab le Physician, No Primary or Family Admitting Clinic cuate Unavailable UNDEFINED Admitting Clinician Unavailable Payers Payer Name Policy Type Policy Number Effective Date Expirati on Date Source BCBS COMM [id number] 2023 00:00:00 [facility] 6 [id number] [place] [id number] [facility] 6 [id number] 2019 00:00:00 [facility] Problems Condition Name Condition Details Condition Category Status Onset Date Resolution Date Last Treatment Date Treating Clinician Comments Source Arthralgia of the lower leg Pain in right knee Problem [facility] [id number] ED (erectile dysfunctio n) of organic origin Problem [facility] [id number] BMI 45.0-49.9, adult Problem [facility] [id number] Morbid obesity Problem [facility] [id number] Hyperhidro sis Problem [facility] [id number] Chronic GERD Problem [facility] [id number] Type 2 diabetes mellitus with hyperglyce ramon, without long-term current use of insulin Problem [facility] Low back pain Low back pain Problem [facility] [id number] Essential hypertensi on Problem [facility] [id number] Hyperchole sterolemia Problem [facility] [id number] Depression with anxiety Problem [facility] [id number] Back muscle spasm Problem [facility] [id number] Low testostero ne in male Problem [facility] [id number] Urethritis Problem Comm on [facility] Chronic pain Other chronic pain Problem [facility] [id number] Arthritis of knee, right Problem [facility] Kidney stone Kidney stones Problem [facility] [id number] Other stricture of overlappin g sites of 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 Problem [facility] [id number] BPH loc w urin obs/LUTS Problem [facility] [id number] 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 Problem [facility] Allergies, Adverse Reactions, Alerts Allergy Name Allergy Type Status Severity Reaction(s) Onset Date Inactive Date Treating Clinician Comments Source Penicill ins DA Active U UNKNOWN 06-28 00:00: 00 [facility] Penicill ins DA Active U HIVES 09-19 00:00: 00 [facility] 0 Drug allergy Active hives [facility] Social History Social Habit Start Date Stop Date Quantity Comments Source History of Tobacco Use Current Smoker [facility] Sex Assigned At [facility] Smoking Status Start Date Stop Date Source Current Smoker 2024-02-21 00:00:00 [facility] Medications Ordered Medication Name Filled Medication Name Start Date Stop Date Current Medication? Ordering Clinician Indication Dosage Frequency Signature (SIG) Comments Components Source Pregabalin 100 MG Pregabalin 100 MG 2023-03 00:00: 00 No 1{capsu le} BID Pregabalin 100 MG Lisinopril- hydroCHLORO thiazide 20-12.5 MG Lisinopril- hydroCHLORO thiazide 20-12.5 MG 2023-03 00:00: 00 No 1{table t} QD Lisinopril -hydroCHLO ROthiazide 20-12.5 MG Rosuvastati n Calcium 40 MG Rosuvastati n Calcium 40 MG 2023-03 00:00: 00 No 1{table t} QD Rosuvastat in Calcium 40 MG metFORMIN HCl ER 750 MG metFORMIN HCl ER 750 MG 07-24 00:00: 00 No 1{table t_with_ evening _meal} BID metFORMIN HCl ER 750 MG Tamsulosin HCl 0.4 MG Tamsulosin HCl 0.4 MG 09-06 00:00: 00 No 1{capsu le} QD Tamsulosin HCl 0.4 MG Bupivicaine Rutherford Bupivicaine Rutherford 07-28 00:00: 00 No 2.5mg [facility] Kenalog (Triamcinol one) Kenalog (Triamcinol one) 07-28 00:00: 00 No 40mg [facility] Methocarbam ol 750 MG Methocarbam ol 750 MG No 2{table ts} BID Methocarba mol 750 MG Lisinopril 20 MG Lisinopril 20 MG [...] 40 MG No QD Omeprazole 40 MG Immunizations Ordered Immunization Name Filled Immunization Name Date Status Comments Source Bupivicaine Rutherford Bupivicaine Rutherford 2020-07-28 15:28:00 Completed [facility] Kenalog (Triamcinolone) Kenalog (Triamcinolone) 2020-07-28 15:28:00 Completed [facility] Bupivicaine Rutherford Bupivicaine Rutherford 2020-07-28 15:28:00 Completed [facility] Kenalog (Triamcinolone) Kenalog (Triamcinolone) 2020-07-28 15:28:00 Completed [facility] Moderna COVID-19 Vaccine Moderna COVID-19 Vaccine 2020-04-29 09:26:00 Completed [facility] Moderna COVID-19 Vaccine Moderna COVID-19 Vaccine 2020-04-29 09:26:00 Completed [facility] Moderna COVID-19 Vaccine Moderna COVID-19 Vaccine 2020-04-29 09:26:00 Completed [facility] Moderna COVID-19 Vaccine Moderna COVID-19 Vaccine 2020-04-29 09:26:00 Completed [facility] Moderna COVID-19 Vaccine Moderna COVID-19 Vaccine 2020-03-24 09:26:00 Completed [facility] Moderna COVID-19 Vaccine Moderna COVID-19 Vaccine 2020-03-24 09:26:00 Completed [facility] Moderna COVID-19 Vaccine Moderna COVID-19 Vaccine 2020-03-24 09:26:00 Completed [facility] Moderna COVID-19 Vaccine Moderna COVID-19 Vaccine 2020-03-24 09:26:00 Completed [facility] Moderna COVID-19 Vaccine Moderna COVID-19 Vaccine Unknown Completed [facility] Moderna COVID-19 Vaccine Moderna COVID-19 Vaccine Unknown Completed [facility] Moderna COVID-19 Vaccine Moderna COVID-19 Vaccine Unknown Completed [facility] Moderna COVID-19 Vaccine Moderna COVID-19 Vaccine Unknown Completed [facility] Moderna COVID-19 Vaccine Moderna COVID-19 Vaccine Unknown Completed [facility] Moderna COVID-19 Vaccine Moderna COVID-19 Vaccine Unknown Completed [facility] Moderna COVID-19 Vaccine Moderna COVID-19 Vaccine Unknown Completed [facility] Moderna COVID-19 Vaccine Moderna COVID-19 Vaccine Unknown Completed [facility] Moderna COVID-19 Vaccine Moderna COVID-19 Vaccine Unknown Completed [facility] Vital Signs Vital Name Observation Time Observation Value Comments S ource height 2024-02-21 10:20:00 70.00 [in_i] Com [facility] weight 2024-02-21 10:20:00 370.4 [lb_av] Co mmon [facility] temperature 2024-02-21 10:20:00 98.2 [degF] Com [facility] bmi 2024-02-21 10:20:00 53.14 kg/m2 Comm on [facility] oximetry 2024-02-21 10:20:00 98 % Commo n [facility] respiratory rate 2024-02-21 10:20:00 16 /min [facility] blood pressure systolic 2024-02-21 10:20:00 134 mm[Hg] [facility] blood pressure diastolic 2024-02-21 10:20:00 72 mm[Hg] [facility] height 2024-01-19 11:20:00 70.00 [in_i] Com [facility] weight 2024-01-19 11:20:00 360 [lb_av] Comm on [facility] temperature 2024-01-19 11:20:00 95.2 [degF] Com [facility] bmi 2024-01-19 11:20:00 51.65 kg/m2 Comm on [facility] respiratory rate 2024-01-19 11:20:00 20 /min Common [facility] height 2024-01-19 11:20:00 70.00 [in_i] Com [facility] weight 2024-01-19 11:20:00 360 [lb_av] Comm on [facility] temperature 2024-01-19 11:20:00 95.2 [degF] Com [facility] bmi 2024-01-19 11:20:00 51.65 kg/m2 Comm on [facility] respiratory rate 2024-01-19 11:20:00 20 /min Common [facility] height 2023-11-22 10:40:00 70.00 [in_i] Com [facility] weight 2023-11-22 10:40:00 368.2 [lb_av] Co mmon [facility] temperature 2023-11-22 10:40:00 97.8 [degF] Com [facility] bmi 2023-11-22 10:40:00 52.83 kg/m2 Comm on [facility] oximetry 2023-11-22 10:40:00 96 % Commo n [facility] respiratory rate 2023-11-22 10:40:00 16 /min [facility] blood pressure systolic 2023-11-22 10:40:00 130 mm[Hg] [facility] blood pressure diastolic 2023-11-22 10:40:00 74 mm[Hg] Common [facility] height 2023-11-22 10:40:00 70.00 [in_i] Com [facility] weight 2023-11-22 10:40:00 368.2 [facility]22 10:40:00 97.8 [degF] Com [facility] bmi 2023-11-22 10:40:00 52.83 kg/m2 Comm on [facility] oximetry 2023-11-22 10:40:00 96 % Commo n [facility] respiratory rate 2023-11-22 10:40:00 16 /min [facility] blood pressure systolic 2023-11-22 10:40:00 130 mm[Hg] Common [facility] blood pressure diastolic 2023-11-22 10:40:00 74 mm[Hg] Common [facility] height 2023-07-25 10:40:00 70.00 [in_i] Com [facility] weight 2023-07-25 10:40:00 359.4 [lb_av] Co [facility] temperature 2023-07-25 10:40:00 98.0 [degF] Com [facility] bmi 2023-07-25 10:40:00 51.56 kg/m2 Comm on [facility] oximetry 2023-07-25 10:40:00 95 % Commo n [facility] respiratory rate 2023-07-25 10:40:00 15 /min Common [facility] blood pressure systolic 2023-07-25 10:40:00 121 mm[Hg] [facility] blood pressure diastolic 2023-07-25 10:40:00 54 mm[Hg] [facility] height 2023-01-09 14:40:00 70.00 [in_i] Com [facility] weight 2023-01-09 14:40:00 352.0 [lb_av] Co mmon [facility] temperature 2023-01-09 14:40:00 97.5 [degF] Com [facility] bmi 2023-01-09 14:40:00 50.5 kg/m2 Commo n [facility] oximetry 2023-01-09 14:40:00 96 % Commo n [facility] respiratory rate 2023-01-09 14:40:00 16 /min Common [facility] blood pressure systolic 2023-01-09 14:40:00 120 mm[Hg] Common [facility] blood pressure diastolic 2023-01-09 14:40:00 78 mm[Hg] [facility] height 2022-10-05 15:00:00 70.00 [in_i] Com [facility] weight 2022-10-05 15:00:00 336.8 [lb_av] Co mmon [facility] temperature 2022-10-05 15:00:00 98.4 [degF] Com [facility] bmi 2022-10-05 15:00:00 48.32 kg/m2 Comm on [facility] oximetry 2022-10-05 15:00:00 96 % Commo n [facility] respiratory rate 2022-10-05 15:00:00 16 /min Common [facility] blood pressure systolic 2022-10-05 15:00:00 122 mm[Hg] Common [facility] blood pressure diastolic 2022-10-05 15:00:00 78 mm[Hg] [facility] height 2022-09-06 13:40:00 70.00 [in_i] Com [facility] weight 2022-09-06 13:40:00 347.4 [lb_av] Co mmon [facility] temperature 2022-09-06 13:40:00 98.2 [degF] Com [facility] bmi 2022-09-06 13:40:00 49.84 kg/m2 Comm on [facility] oximetry 2022-09-06 13:40:00 94 % Commo n [facility] respiratory rate 2022-09-06 13:40:00 16 /min Common [facility] blood pressure systolic 2022-09-06 13:40:00 138 mm[Hg] [facility] blood pressure diastolic 2022-09-06 13:40:00 76 mm[Hg] Common [facility] height 2022-05-09 15:00:00 70.00 [in_i] Com [facility] weight 2022-05-09 15:00:00 335 [lb_av] Comm on [facility] temperature 2022-05-09 15:00:00 97.7 [degF] Com [facility] bmi 2022-05-09 15:00:00 48.06 kg/m2 Comm on [facility] oximetry 2022-05-09 15:00:00 97 % Commo n [facility] respiratory rate 2022-05-09 15:00:00 17 /min [facility] blood pressure systolic 2022-05-09 15:00:00 148 mm[Hg] Common [facility] blood pressure diastolic 2022-05-09 15:00:00 88 mm[Hg] Common [facility] height 2021-09-10 08:40:00 70.00 [in_i] Com [facility] weight 2021-09-10 08:40:00 348.8 [lb_av] Co mmon [facility] temperature 2021-09-10 08:40:00 97.3 [degF] Com [facility] bmi 2021-09-10 08:40:00 50.04 kg/m2 Comm on [facility] oximetry 2021-09-10 08:40:00 94 % Commo n [facility] respiratory rate 2021-09-10 08:40:00 18 /min Common [facility] blood pressure systolic 2021-09-10 08:40:00 138 mm[Hg] [facility] blood pressure diastolic 2021-09-10 08:40:00 88 mm[Hg] [facility] height 2021-01-07 10:00:00 70.00 [in_i] Com [facility] weight 2021-01-07 10:00:00 332 [lb_av] Comm on [facility] temperature 2021-01-07 10:00:00 98.1 [degF] Com [facility] bmi 2021-01-07 10:00:00 47.63 kg/m2 Comm on [facility] oximetry 2021-01-07 10:00:00 96 % Commo n [facility] blood pressure systolic 2021-01-07 10:00:00 161 mm[Hg] Common [facility] blood pressure diastolic 2021-01-07 10:00:00 97 mm[Hg] [facility] height 2021-01-07 10:00:00 70.00 [in_i] Com [facility] weight 2021-01-07 10:00:00 332 [lb_av] Comm on [facility] temperature 2021-01-07 10:00:00 98.1 [degF] Com [facility] bmi 2021-01-07 10:00:00 47.63 kg/m2 Comm on [facility] oximetry 2021-01-07 10:00:00 96 % Commo n [facility] blood pressure systolic 2021-01-07 10:00:00 161 mm[Hg] Common [facility] blood pressure diastolic 2021-01-07 10:00:00 97 mm[Hg] Common [facility] height 2020-12-29 10:20:00 70.00 [in_i] Com [facility] weight 2020-12-29 10:20:00 334 [lb_av] Comm on [facility] temperature 2020-12-29 10:20:00 97.0 [degF] Com [facility] bmi 2020-12-29 10:20:00 47.92 kg/m2 Comm on [facility] oximetry 2020-12-29 10:20:00 97 % Commo n [facility] respiratory rate 2020-12-29 10:20:00 16 /min [facility] blood pressure systolic 2020-12-29 10:20:00 134 mm[Hg] [facility] blood pressure diastolic 2020-12-29 10:20:00 88 mm[Hg] [facility] height 2020-11-11 09:00:00 70.00 [in_i] Com [facility] weight 2020-11-11 09:00:00 339 [lb_av] Comm on [facility] temperature 2020-11-11 09:00:00 97.9 [degF] Com [facility] bmi 2020-11-11 09:00:00 48.64 kg/m2 Comm on [facility] oximetry 2020-11-11 09:00:00 97 % Commo n [facility] respiratory rate 2020-11-11 09:00:00 18 /min Common [facility] blood pressure systolic 2020-11-11 09:00:00 140 mm[Hg] Common [facility] blood pressure diastolic 2020-11-11 09:00:00 89 mm[Hg] [facility] height 2020-10-08 11:30:00 70.00 [in_i] Com [facility] weight 2020-10-08 11:30:00 320 [lb_av] Comm on [facility] temperature 2020-10-08 11:30:00 98.6 [degF] Com [facility] bmi 2020-10-08 11:30:00 45.91 kg/m2 Comm on [facility] oximetry 2020-10-08 11:30:00 96 % Commo n [facility] blood pressure systolic 2020-10-08 11:30:00 144 mm[Hg] [facility] blood pressure diastolic 2020-10-08 11:30:00 90 mm[Hg] Common [facility] height 2020-09-25 10:20:00 70.00 [in_i] Com [facility] weight 2020-09-25 10:20:00 333 [lb_av] Comm on [facility] temperature 2020-09-25 10:20:00 97.2 [degF] Com [facility] bmi 2020-09-25 10:20:00 47.78 kg/m2 Comm on [facility] oximetry 2020-09-25 10:20:00 95 % Commo n [facility] respiratory rate 2020-09-25 10:20:00 16 /min [facility] blood pressure systolic 2020-09-25 10:20:00 127 mm[Hg] [facility] blood pressure diastolic 2020-09-25 10:20:00 74 mm[Hg] Common [facility] height 2020-08-04 15:40:00 70.00 [in_i] Com [facility] weight 2020-08-04 15:40:00 334.8 [lb_av] Co mmon [facility] temperature 2020-08-04 15:40:00 95.9 [degF] Com [facility] bmi 2020-08-04 15:40:00 48.03 kg/m2 Comm on [facility] oximetry 2020-08-04 15:40:00 96 % Commo n [facility] blood pressure systolic 2020-08-04 15:40:00 142 mm[Hg] [facility] blood pressure diastolic 2020-08-04 15:40:00 114 mm[Hg] [facility] Procedures Procedure Date / Time Performed Performing Clinicia n Source PVR [facility] Encounters Start Date/Time End Date/Time Encounter Type Admission Type Attending [facility] Care Department Encounter ID Source 2024-01-31 12:06:00 Outpatient Lenore Roper STLMLC ST[facility] [id number] [facility] 2024-01-17 07:53:00 Outpatient Lenore Roper STLMLC STL[facility]C [id number] [facility] 2023-11-21 15:34:00 Outpatient Lenore Roper STLMLC STL[facility] [id number] [facility] 2023-07-05 15:45:00 Outpatient Lenore Roper STLMLC STLMLC [id number] [facility] 2023-05-11 07:38:00 Outpatient Lenore Roper STLMLC STLMLC [id number] [facility] 2023-01-30 10:24:00 Outpatient Lenore Roper STLMLC STL[facility]C [id number] [facility] 2022-05-09 14:37:01 Outpatient Lenore Roper STLMLC ST[facility] [id number] [facility] 2021-09-02 09:23:01 Outpatient Lenore Roper STLMLC STL[facility]C [id number] [facility] 2021-04-21 14:01:47 Outpatient Lenore Roper STLMLC STL[facility]C [id number] [facility] 2021-04-21 13:48:20 Outpatient Lenore Roper STLMLC STL[facility]C [id number] [facility] 2021-04-21 13:39:41 [place] [facility] [id number] [facility] 2021-04-21 13:39:34 [place] [facility] ST[facility] [id number] [facility] 2021-04-21 13:26:31 [place] [facility] ST[facility] [id number] [facility] 2021-04-21 13:21:35 [place] [facility] [id number] [facility] 2021-04-21 12:59:15 [place] [facility] ST[facility] [id number] [facility] 2021-04-21 12:58:26 Outpatient Lenore Roper STLMLC STLMLC [id number] [facility] 2021-04-21 12:57:42 Outpatient Lenore Roper STLMLC STL[facility]C [id number] [facility] 2021-04-21 12:48:56 Outpatient Lenore Roper STLMLC STL[facility]C [id number] [facility] 2021-04-21 12:48:19 [place] [facility] ST[facility] [id number] [facility] 2021-04-21 12:47:50 Outpatient Lenore Roper STL[facility]C STL[facility]C [id number] [facility] 2021-04-21 12:11:30 Outpatient STLMLC STL[facility]C [id number] [facility] 2021-04-21 11:48:33 Outpatient Meron Jaquez STLMLC STLMLC [id number] [facility] 2024-05-07 21:04:00 2024-05-07 21:49:00 Emergency Emergency RACHID GO [facility] General Medicine [id number] ESL 2024-03-01 00:00:00 2024-03-01 00:00:00 (TEL) STLMLC STLMLC [id number] [facility] 2024-02-21 00:00:00 2024-02-21 00:00:00 OFFICE VISIT ESTAB PT LEVEL 4 STLMLC STLMLC [id number] [facility] 2024-02-12 00:00:00 2024-02-12 00:00:00 (TEL) STLMLC STLMLC [id number] [facility] 2024-02-01 00:00:00 2024-02-01 00:00:00 (TEL) STLMLC STLMLC [id number] [facility] 2024-01-22 00:00:00 2024-01-22 00:00:00 (TEL) STLMLC STLMLC [id number] [facility] 2024-01-19 00:00:00 2024-01-19 00:00:00 OFFICE VISIT ESTAB PT LEVEL 3 STLMLC STLMLC [id number] [facility] 2024-01-16 00:00:00 2024-01-16 00:00:00 (TEL) STLMLC STLMLC [id number] [facility] 2023-12-08 13:42:50 2023-12-08 14:50:11 Outpatient Elective ARSH CORDOVA EOUT EOUT [id number] EOUT 2023-11-22 00:00:00 2023-11-22 00:00:00 OFFICE VISIT ESTAB PT LEVEL 4 STLMLC STLMLC [id number] [facility] 2023-11-21 00:00:00 2023-11-21 00:00:00 (TEL) STLMLC STLMLC [id number] [facility] 2023-09-20 00:00:00 2023-09-20 00:00:00 (TEL) STLMLC STLMLC [id number] [facility] 2023-07-25 00:00:00 2023-07-25 00:00:00 OFFICE VISIT ESTAB PT LEVEL 4 STLMLC STLMLC [id number] [facility] 2023-07-20 00:00:00 2023-07-20 00:00:00 (TEL) STLMLC STLMLC [id number] [facility] 2023-03-25 15:32:00 2023-03-25 19:33:00 Emergency EM Agusto Webster [facility] ER [id number] 25 [facility] 2023-01-30 00:00:00 2023-01-30 00:00:00 (TEL) STLMLC STLMLC [id number] [facility] 2023-01-25 00:00:00 2023-01-25 00:00:00 (TEL) STLMLC STLMLC [id number] [facility] 2023-01-09 00:00:00 2023-01-09 00:00:00 OFFICE VISIT ESTAB PT LEVEL 3 STLMLC STLMLC [id number] [facility] 2022-10-16 19:47:00 2022-10-16 20:45:00 Emergency EM Ever Smith [facility] ER [id number] 92 [facility] 2022-10-05 00:00:00 2022-10-05 00:00:00 OFFICE VISIT ESTAB PT LEVEL 3 STLMLC STLMLC [id number] [facility] 2022-09-06 00:00:00 2022-09-06 00:00:00 OFFICE VISIT ESTAB PT LEVEL 3 STLMLC STLMLC [id number] [facility] 2022-06-28 14:25:00 2022-06-28 17:40:00 Emergency EM Emiliano Murray [facility] ER [id number] 15 [facility] 2022-06-28 14:25:00 2022-06-28 17:40:00 Emergency EM Emiliano Murray [facility] ER [id number] 15 [facility] 2022-05-09 00:00:00 2022-05-09 00:00:00 OFFICE VISIT ESTAB PT LEVEL 3 STLMLC STLMLC [id number] [facility] 2022-04-27 00:00:00 2022-04-27 00:00:00 (TEL) STLMLC STLMLC [id number] [facility] 2021-09-10 00:00:00 2021-09-10 00:00:00 OFFICE VISIT EST PT LEVEL 3 STLMLC STLMLC [id number] [facility] 2021-03-25 00:00:00 2021-03-25 00:00:00 (TEL) STLMLC STLMLC [id number] [facility] 2021-01-28 00:00:00 2021-01-28 00:00:00 OL DIG E/M SVC 11-20 MIN STLMLC STLMLC [id number] [facility] 2021-01-07 00:00:00 2021-01-07 00:00:00 OFFICE VISIT ESTAB PT LEVEL 4 STLMLC STLMLC [id number] [facility] 2020-12-29 00:00:00 2020-12-29 00:00:00 OFFICE VISIT ESTAB PT LEVEL 4 STLMLC STLMLC [id number] [facility] 2020-12-17 00:00:00 2020-12-17 00:00:00 (TEL) STLMLC STLMLC [id number] [facility] 2020-11-11 00:00:00 2020-11-11 00:00:00 OFFICE VISIT EST PT LEVEL 3 STLMLC STLMLC [id number] [facility] 2020-10-29 00:00:00 2020-10-29 00:00:00 (TEL) STLMLC STLMLC [id number] [facility] 2020-10-08 00:00:00 2020-10-08 00:00:00 OFFICE VISIT ESTAB PT LEVEL 4 STLMLC STLMLC [id number] [facility] 2020-09-25 00:00:00 2020-09-25 00:00:00 OFFICE VISIT ESTAB PT LEVEL 4 STLMLC STLMLC [id number] [facility] 2020-09-03 00:00:00 2020-09-03 00:00:00 Outpatient STLMLC STLMLC [id number] [facility] 2020-08-26 00:00:00 2020-08-26 00:00:00 Outpatient STLMLC STLMLC [id number] [facility] 2020-08-04 00:00:00 2020-08-04 00:00:00 OFFICE VISIT NEW PT LEVEL 3 STLMLC STLMLC [id number] [facility] 2020-07-28 00:00:00 2020-07-28 00:00:00 Outpatient STLMLC STLMLC [id number] [facility] 2020-07-21 00:00:00 2020-07-21 00:00:00 Outpatient STLMLC STLMLC [id number] [facility] 2020-07-13 00:00:00 2020-07-13 00:00:00 Outpatient STLMLC STLMLC [id number] [facility] 2020-07-01 00:00:00 2020-07-01 00:00:00 Outpatient STLMLC STLMLC [id number] [facility] 2020-06-30 00:00:00 2020-06-30 00:00:00 Outpatient STLMLC STLMLC [id number] [facility] 2020-06-26 00:00:00 2020-06-26 00:00:00 Outpatient STLMLC STLMLC [id number] [facility] 2020-05-26 00:00:00 2020-05-26 00:00:00 Outpatient STLMLC STLMLC [id number] [facility] 2020-04-22 00:00:00 2020-04-22 00:00:00 Outpatient STLMLC STLMLC [id number] [facility] 2020-04-09 00:00:00 2020-04-09 00:00:00 Outpatient [facility] [id number] [facility] 2020-04-08 00:00:00 2020-04-08 00:00:00 Outpatient [facility] STLC [id number] [facility] 2020-03-25 00:00:00 2020-03-25 00:00:00 Outpatient [facility] [id number] [facility] 2019-12-18 00:00:00 2019-12-18 00:00:00 Outpatient [facility] [id number] [facility] 2019-12-18 00:00:00 2019-12-18 00:00:00 Outpatient [facility] [id number] [facility] Results Test Description Test Time Test Comments Results Result Co mments Source HEMOGLOBIN [id number] 00:00:00* Test Item Value Reference Range Interpretation Comme nts HEMOGLOBIN A1c (test code = 4548-4) 6.5 - CT ABD PELVIS [id number] 18:48:00 [facility] 1970 Sex: M Patient Name: JD COOMBS Unit No: [id number] EXAMS: CPT CODE: [id number] CT ABD PELVIS W/CONT 40160 Reason: ABDOMINAL DISTENTION, ABDOMINAL EXAM: - CT ABD PELVIS W/CONT INDICATION: 52 years -old Male with ABDOMINAL DISTENTION, ABDOMINAL PAIN TECHNIQUE: Contrast - IV contrast was given. No oral contrast was given Portal venous phase - abdomen and pelvis No delayed phase images were obtained. Reconstructions - coronal and sagittal planes Automated exposure reduction (Auto mA/Smart mA)was utilized in compliance with ACR Image Wisely COMPARISON: None FINDINGS: Statements: None. Thoracic: Included images of the lower chest demonstrate no abnormalities. Hepatobiliary: The liver is normal without focal lesion. The gallbladder is normal. No biliary dilation. Pancreas: Normal. Spleen:Normal. Adrenals: Normal. Genitourinary: The kidneys are normal. [...] abscess. No other acute inflammatory process demonstrated. [facility] NAME: JD COOMBS [address] [facility] PHYS: [place] [address] : 1970 AGE: 52 SEX: M LOC: YOVANA PHONE #: [phone] EXAM DATE: 03/25/2023 STATUS: REG FAX #: RAD NO: DC Dt: PAGE 1 Signed Report (CONTINUED) Patient Name: JD COOMBS Unit No: [id number] EXAMS: CPT CODE: [id number] CT ABD PELVIS W/CONT 34397 (Continued) Reason: ABDOMINAL DISTENTION, ABDOMINAL at 1848 Reported and signed by: Sukhdev Mccarty MD CC: Ayla MEJIAS; Agusto Webster MD Technologist: SHREYA Stapleton Trscrpt Dt/ (1847)[id number] Orig Print D/T: S: 03/25/2023 (185) CTDI: DLP: [facility] NAME: JD COOMBS [id number] [facility] PHYS: [place] [address] : 1970 AGE: 52 SEX: M LOC: YOVANA PHONE #: [phone] EXAM DATE: 023 STATUS: REG ER FAX #: RAD NO: DC Dt: PAGE 2 Signed ReportBASIC METABOLIC [id number] 16:59:00* Test Item Value Reference Range Interpretation [...] CA) 10.0 MG/DL 8.7-10.5 N HEPATIC FUNCTION [id number] 16:59:00* Test Item Value Reference Range Interpretation [...] code = ALKP) 153 Units/L 50-136 H [id number] 16:59:00* Test Item Value Reference Range Interpretation Comme nts LIPASE (test code = LIP) 31 U/L 16-77 N New Reference Ranges of 16-77 U/L please reviewrevised from 73-393 U/L on 01/10/2023 TROP-I HIGH [id number] 16:59:00* Test Item Value Reference Range Interpretation [...] troponin from other clinical conditions, the Fourth [place] Definition of Myocardial Infarction stresses clinical assessment and demonstration of a rise and/or fall in serial troponin results above the upper reference limit.Results of this assay method may be falsely depressed orelevated if patient is taking high doses of Biotin. LACTIC [id number] 16:59:00* Test Item Value Reference Range Interpretation Comme nts LACTIC ACID (test code = LACT) 0.6 MMOL/L 0.5-2.2 N UA RFLX MICROSCOPIC [id number] 16:38:00* Test Item Value Reference Range Interpretation [...] culture: RiskForSepsis-no oth srcURINE SOURCE: Clean CatchUA [id number] 16:38:00* Test Item Value Reference Range Interpretation Comme nts UA RBC (test code = RBCU) 2-5 #/hpf NONE SEEN A UA BACTERIA (test code = BACU) 1+ #/hpf NONE SEEN UA MUCUS (test code = MUCU) 1+ #/lpf NONE SEEN Indication for culture: RiskForSepsis-no oth srcURINE SOURCE: Clean CatchCBC W/AUTO [id number] 16:36:00* Test Item Value Reference Range Interpretation Comme nts WHITE BLOOD CELL (test code = WBC) 12.27 x10 3/uL 4.80-10.80 H Results called t o and read back by DAWN STEELE RN;1635, 03/25/23, [id number]. RED BLOOD CELL (test code = RBC) [...] x10 3/uL 0.0-0.2 N - XR L-SPINE 4+[id number] 20:26:00 [facility] : 1970 Sex: M Patient Name: JD COOMBS Unit No: [id number] EXAMS: CPT CODE: [id number] XR L-SPINE 4+VIEWS 42524 Reason: back pain STUDY: Lumbar spine radiograph HISTORY: Back pain COMPARISON: No Prior TECHNIQUE:AP, oblique, lateral, and lateral coned down views of the lumbar spine. LOCATION: H19 FINDINGS: There are 5 nonrib-bearing lumbar vertebral bodies. There is no significant scoliosis or listhesis. The vertebral body heights are maintained. There is mild to moderate intervertebral disc space narrowing. Prominent anterior marginal spurs are demonstrated throughout the lumbar spine, greatest at L1-2and L2-3. The pedicles and sacroiliac joints appear symmetric. IMPRESSION: No evidence of acute osseous abnormality. Mild to moderate multilevel spondylosis. at 2025 Reported and signed by: Sukhdev Joaquin MD CC: Ever Smith III, DO Technologist: SHREYA Cr Trscrpt Dt/ (2025)[id number] Orig Print D/T: S: 10/16/2022 (2029) [place] [facility] NAME: JD COOMBS [address] [place] [address] PHYS: [email or web address] [place] [address] : 1970 AGE: 52 SEX: M LOC: D.RER PHONE #: EXAM DATE: 10/16/2022 STATUS: REG ER FAX #: RAD NO: DC Dt: PAGE 1 Signed ReportCOMPREHENSIVE METABOLIC [id number] 17:31:00* Test Item Value Reference Range Interpretation [...] code = ALKP) 149 Units/L 50-136 H [id number] 16:40:00* Test Item Value Reference Range Interpretation Comme nts MAGNESIUM (test code = MAG) 2.1 MG/DL 1.8-2.4 N [id number] 16:40:00* Test Item Value Reference Range Interpretation Comme nts LIPASE (test code = LIP) 118 Units/L 73-393 N URINALYSIS W/O [id number] 16:34:00* Test Item Value Reference Range Interpretation [...] srcURINE SOURCE: Clean Catch- CT ABD PELVIS [id number] 15:58:00 [facility] : 1970 Sex: M Patient Name: JD COOMBS Unit No: [id number] EXAMS: CPT CODE: [id number] CT ABD PELVIS W/CONT 83179 Reason: ABD PAIN HISTORY: ABD PAIN TECHNIQUE: [...] unremarkable without evidence of bowel thickening or obstruction.The colon is unremarkable. The appendix is not [...] of the mesentery. Consider possibility of mesenteritis. [place] [facility] NAME: JD COOMBS [address] [place] [address] PHYS: MCC. - [place] [address] : 1970 AGE: 52SEX: M LOC: D.RER PHONE #: EXAM DATE: 06/28/2022 STATUS: REG ER FAX #: RAD NO: DC Dt: PAGE 1 Signed Report (CONTINUED) Patient Name: JD COOMBS Unit No: [id number] EXAMS: CPT CODE: [id number] CT ABD PELVIS W/CONT 75466 (Continued) Reason: ABD PAIN at 1558 Reported and signed by: Elias Rogers MD CC: Germania [place] DO Technologist: SHREYA Ferrari Trscrpt Dt/ (1458)t.REECER.NB16 Orig Print D/T: S: 06/28/2022 (1602) CTDI: DLP: [place] [facility] NAME: JD COOMBS [address] PHYS: KEERTHI - [place] [address] : 1970 AGE: 52 SEX: M LOC: D.RER PHONE #: EXAM DATE: 06/28/2022 STATUS: REG ER FAX #: RAD NO: DC Dt: PAGE 2Signed Report- CT ABD PELVIS [id number] 15:58:00 [facility] : 1970 Sex: M Patient Name: JD COOMBS Unit No: [id number] EXAMS: CPT CODE: [id number] CT ABD PELVIS W/CONT 05647Wperuj: ABD PAIN HISTORY: ABD PAIN TECHNIQUE: Helical imaging of the abdomen and pelvis is performed with intravenous contrast. Approximately 100 mL of intravenous contrast was administered. No oralcontrast is administered. Sagittal and coronal reconstructions reviewed. CT DLP dose: 1234 mGy-cm. One or more of the following dose reduction techniques were used: Automated exposure control, adjustment of the mA and/or kV according to patient size, and/or utilization of iterative reconstruction technique. Location: W1 Comparison study: None FINDINGS: The images of the lung bases demonstrate nomasses, effusions or infiltrates. Heart size is normal. There is no pericardial effusion. The liveris homogeneous, free of focal masses and dilated intrahepatic ducts. The gallbladder is contracted.The spleen is normal in size and contour. The pancreas is morphologically normal. No mass, pancreatic duct dilatation or peripancreatic edema is visible. The adrenal glands are normal in size and con tour. Neither cystic nor solid renal masses are [...] of the mesentery. Consider possibility of mesenteritis. [place] [facility] NAME: JD COOMBS [facility] PHYS: JETHRO. - [place] [address] : 1970 AGE: 52 SEX: M LOC: D.RER PHONE #: EXAM DATE: 06/28/2022 STATUS: DEP ER FAX #: RA D NO: DC Dt: PAGE 1 Signed Report (CONTINUED) Patient Name: JD COOMBS Unit No: [id number] EXAMS: CPT CODE: [id number] CT ABD PELVIS W/CONT 25185 (Continued) Reason: ABD PAIN at 1558 Reported and signed by: Elias Rogers MD CC: Germania [place] DO Technologist: SHREYA Ferrari Trscrpt Dt/ (1558)t.REECER.[email or web address] Orig Print D/T: S: 06/28/2022 (1602) CTDI: DLP: [place] [facility] NAME: JD COOMBS [address] [place] [address] PHYS: [email or web address] - [place] [address] : 1970 AGE: 52 SEX: M LOC: D.RER PHONE #: EXAM DATE: 06/28/2022 STATUS: DEP ER FAX #: RAD NO: DC Dt:PAGE 2 Signed ReportTROPONIN I [id number] 14:59:00* Test Item Value Reference Range Interpretation Comme nts TROPONIN I RAPID (test code = TROPIRAP) 0.02 NG/ML 0.00-0.08 N Performed by cer tified high pressure kettle operator at [facility] - The use of serial sampling and testing protocol is a recommended practice.- An elevated troponin level alone is often not sufficient for diagnosis of myocardial infarction. CBC W/AUTO [id number] 14:52:00* Test Item Value Reference Range Interpretation [...] Notes Date/Time Note Provider Source 2023-03-25 15:57:00 [facility] ([facility]) OR A CAMPUS OF [facility] EMERGENCY PROVIDER REPORT REPORT#:[id number] REPORT STATUS: Signed DATE:03/25/23 TIME: 1556 PATIENT: JD COOMBS UNIT #: [id number] ROOM/BED: AGE: 52 SEX: M PCP PHYS: Undefined Provider SERVICE AUTHOR: Ayla Vences * ALL edits or amendments must be made on the electronic/computer document * Ayla Vences 03/25/231556: HPI-Abd Pain M 40 and Over Free [...] General Confirmed Patient Yes Initial Greet Date/Time 03/25/231531 Presentation Chief Complaint Abdominal pain, Diarrhea moderate [...] (Auto) (24 - 44 %) 13.3 L [place] % (Auto) (0.0 - 4.0 %) 5.9 [...] (5.5 - 7.0) 5.0 L Ur Specific [place] (1.001 - 1.035) 1.020 Urine Protein (NEGATIVE [...] Report Impression - Status: SIGNED Entered: 03/25/2023 4965 IMPRESSION: 1. Normal appendix. No evidence of bowel obstruction. 2. Minimal haziness involving central mesentery nonspecific in nature. Findings could represent sequelae of prior enteritis versus mesenteritis. No fluid collection or abscess. No other acute inflammatory process demonstrated. Impression By: [email or web address] - Sukhdev Mccarty MD Re-Evaluation MDM Free Text MDM Notes [...] )( Discharged to Home Yes )( Time 192 )( Date 03/25/23 Discharge/Care Plan Counseled Regarding [...] FOR WORSENING SYMPTOMS. THANK YOU FOR CHOOSING [facility] FOR YOUR [facility]ENCY NEEDS. LUBA ROWAN EDITH CON BALLARD DOCTOR PARA VERLO EN 1 A 2 STILES. SI EMPEORAN BEN SINTOMAS REGRESE A LA EMERGENCIA. CIRA POR ELEGIR EL [facility] PARA BALLARD NECESIDADES DE LA EMERGENCIA. CLINICS: [facility] - [phone] [address] [place] [address] [facility] - [phone] [address] [place] [address] DENTAL CLINIC: [address] (MUST ARRANGE NUECES AIDE FIRST) [phone] [facility]: [address] SPID (FLOUR BLUFF) OPEN EVERY MONDAY - [phone] [facility]: [address] [facility], [place], [place] [phone] IF YOU HAVE NO INSURANCE AND LIVE IN [facility], YOU MAY QUALIFY FOR A NUECES AIDE CARE. CALL TO SIGN UP AND/OR CALL FOR A LIST OF REQUIREMENTS. FOR SCHEDULING APPOINTMENTS CALL . IF YOU LIVE IN [facility] AND DO NOT QUALIFY FOR [facility], CONTACT [facility]: [address], [address], [place], [place] [phone] IF YOU LIVE IN [facility] AND HAVE NO INSURANCE, YOU MAY BE ABLE TO BE SEEN AT THE [facility] HEALTH DEPARTMENT LOCATED AT [address] [place] [address]. CALL [phone] TO SEE IF YOU QUALITY AND/OR TO SCHEDULE AN APPOINTMENT. [facility]: [address], [address], [place], [place] DENTAL MOBILE UNIT: [address], [address], [place], [place] [facility]: [address], [place] [facility]: [address] [facility] [place], [place]: [address] [place], [place]: [address] [facility], [address], [place], [place] Discharge Note I have spoken with [...] emergency department or a call to 911. [email or web address] Resendiz 03/25/23 1619: Physical Exam Vital Signs [...] 1,000 ML X1ED STA 03/25 1555 DC 30 IV 03/25 1654 1629 Gastrointestinal Drugs Sig/Benja [...] 1552 O2 Delivery Room air 03/25 1532 All vital signs available at the time of this entry have been reviewed. Supervising Physician Note MidLv/Doc Saw Pt 1 I have personally seen the patient and I evaluated the patient along with involvement of the PA/WELLNESS RN. I agree with the PA/trucksmith findings and plan. I have performed all aspects of MDM as documented including: evaluation of the patient/ patient's condition(s), review and analysis of available data, and determination of risk of patient management decisions. at 1824 at 0712 RPT #:[id number] END OF REPORT [facility] 2022-10-16 20:00:00 [facility] ([facility]) OR A CAMPUS OF [facility] EMERGENCY PROVIDER REPORT REPORT#:[id number] REPORT STATUS: Signed DATE:10/16/22 TIME: 1999 PATIENT: JD COOMBS UNIT #: [id number] ROOM/BED: AGE: 52 SEX: M PCP PHYS: [...] Rectum Rectum/Perineum Blood - occult heme neg, credit control officer passed, No gross blood, No fissures, No [...] 10/16 1946 Pulse 104 10/16 1946 Resp 10/16 Last Documented: Result Date Time Pulse Ox 95 10/16 1946 B/P 120/85 10/16 1946 B/P Mean 96 10/16 1946 O2 Delivery Room air 10/16 1946 Temp 37.0 10/16 1946 Pulse 104 10/16 1946 Resp 10/16 All vital signs available at the time [...] Cessation Screened, non user at 0032 RPT #:[id number] END OF REPORT [facility] 2022-06-28 14:40:00 [facility] ([facility]) OR A CAMPUS OF [facility] EMERGENCY PROVIDER REPORT REPORT#:[id number] REPORT STATUS: Signed DATE:06/28/22 TIME: 1440 PATIENT: JD COOMBS UNIT #: [id number] ROOM/BED: AGE: 52 SEX: M PCP PHYS: [...] General Confirmed Patient Yes Initial Greet Date/Time 06/28/22 1427 Presentation Chief Complaint Abdominal pain, Diarrhea moderate [...] Documented: Result Date Time Pulse Ox 97 / 1425 B/P 189/107 / 1425 B/P Mean 134 / 1425 O2 Delivery Room air 06/28 1425 Temp 98.7 / 1425 Pulse 99 04/ 1425 Resp 16 04/04 1425 Last Documented: Result Date Time Pulse Ox 95 / 1709 B/P 168/90 04/ 1709 B/P Mean 116 04/04 1709 Pulse 83 04/04 1709 Resp 16 04/04 1709 O2 Delivery Room air 06/28 1425 Temp 98.7 04/ 1425 Review of Vital Signs Reviewed Free [...] pH (5.5 - 7.0) 6.0 Ur Specific [place] (1.001 - 1.035) 1.010 Urine Protein (NEGATIVE [...] 4 MG ONCE PRN 06/28 1440 DC 06/28 IV 1448 Patient Discharge Departure Vital Signs/Condition Vital Signs First Documented: Result Date Time Pulse Ox 97 06/28 1425 B/P 189/107 06/28 1425 B/P Mean 134 06/28 1425 O2 Delivery Room air 06/28 1425 Temp 98.7 06/28 142 Pulse 99 06/28 1425 Resp 16 06/28 1425 Last Documented: Result Date Time Pulse Ox 95 06/28 1708 B/P 168/90 06/28 1708 B/P Mean 116 06/28 1708 Pulse 83 06/28 170 Resp 16 06/28 1709 O2 Delivery Room air 06/28 1425 Temp 98.7 06/28 1425 All vital signs available at the time of this entry have been reviewed. Condition Stable Clinical Impression Clinical Impression Primary Impression: Mesenteric adenitis Time of Impression 172 Disposition Decision Discharge )( Discharged to Home [...] FOR WORSENING SYMPTOMS. THANK YOU FOR CHOOSING [facility] FOR YOUR EMERGENCY NEEDS. LUBA ROWAN EDITH CON BALLARD DOCTOR PARA VERLO EN 1 A 2 STILES. SI EMPEORAN BEN SINTOMAS REGRESE A LA EMERGENCIA. CIRA POR ELEGIR [facility] PARA BALLARD NECESIDADES DE LA EMERGENCIA. CLINICS: [facility] - [phone] [address] [place] [address] [facility] - [phone] [address] [place] [address] DENTAL CLINIC: [address] (MUST ARRANGE NUECES AIDE FIRST) [phone] [facility] CLINIC: [address] SP[address] ([place] BLUFF) OPEN EVERY MONDAY - [phone] [facility]: [address] [place], [place] [phone] IF YOU HAVE NO INSURANCE AND LIVE IN [facility], YOU MAY QUALIFY FOR A NUECES AIDE CARE. CALL TO SIGN UP AND/OR CALL FOR A LIST OF REQUIREMENTS. FOR SCHEDULING APPOINTMENTS CALL . IF YOU LIVE IN [facility] AND DO NOT QUALIFY FOR NUECES AIDE, CONTACT [facility] [place]: [address], [address], [place], [place] [phone] IF YOU LIVE IN [facility] AND HAVE NO INSURANCE, YOU MAY BE ABLE TO BE SEEN AT THE [facility] HEALTH DEPARTMENT LOCATED AT [facility] [place]. CALL [phone] TO SEE IF YOU QUALITY AND/OR TO SCHEDULE AN APPOINTMENT. [facility]: [address], [address] DENTAL MOBILE UNIT: [address], [address], [place], [place] [facility]: [address], [place] [facility]: [address], [place] [address] [place], [place] [address], [facility] [place], [place] Discharge Note I have spoken with [...] Saw Pt Alone I have reviewed the PA/WELLNESS RN's note and plan of care. I was available for consultation as needed at all times during the patient's visit in the emergency department. I agree with the clinical impression, plan and disposition. at [phone] at 1038 [facility] #:[id number] END OF REPORT [facility]
[2024-06-13 23:20] LABS: Eosinophils % 1.2 % (0-4.4); Hematocrit 39.8 % (39.6-49.0); Hemoglobin 13.5 g/dL (13.6-17.9); MCH 27.7 pg (27.0-35.0); MCV 81.4 fL (80-100); MPV 9.4 fL (7.6-11.3); Monocytes % 7.9 % (3.3-12.3); Platelets 197 thou/uL (152-406); RBC Red Blood Cell Count 4.89 M/uL (4.33-5.43); Red Cell Distribution Width 13.7 % (12.1-15.2)
[2024-06-13 23:21] LABS: Absolute Basophils 0.1 K/uL (0-0.5); Absolute Eosinophils 0.1 K/uL (0-0.5); Absolute Monocytes 0.7 K/uL (0.1-1.3); Absolute Neutrophil 5.4 K/uL (1.8-8.0); Basophils % 0.9 % (0-1.3); Nucleated Red Blood Cells % 0.1 % (0-0)
[2024-06-13 23:28] LABS: Albumin 3.5 g/dL (3.4-5.0); Anion Gap 4.9 mEq/L (5.0-15.0); Bilirubin Total 0.4 mg/dL (0.2-1.0); Globulin 3.4 g/dL (2.3-3.5); Potassium 3.9 mEq/L (3.5-5.1); Protein, Total 6.9 g/dL (6.4-8.2)
--- NOTE | 2024-06-14 01:44 | RAD REPORT ---
EXAM: US UPPER EXTREMITY VEINS LIMITED FOLLOW-UP UNILATERAL LEFT HISTORY: 4-year-old male with left arm swelling. COMPARISON: No relevant imaging studies available for comparison. FINDINGS: Grayscale, color-flow, and spectral Doppler analysis was performed upon the veins. Left int ernal jugular vein, subclavian vein, axillary vein, brachial vein, and visualized portions of the cephalic and basilic veins are patent. Normal compressibility, augmentation, and flow. Left ulnar and radial veins demonstrated normal compressibility. IMPRESSION: No evidence for left upper extremity deep vein thrombosis. Electronically signed by: Amrit Fuentes MD 06/14/2024 01:00 AM CDT RP Due to temporary technical issues with the PACS[employer] reporting system, reports are being signed by the in-house radiologist without review as a courtesy to ensure prompt reporting the interpreting radiologist is fully responsible for the content of the report. Transcribed Date/Time: 06/14/2024 1:43 AM
[2024-06-14] MEDS ORDERED: NA CHLORIDE 0.9% 1,000 ML ONE (01:56)
--- NOTE | 2024-06-14 04:43 | ER ---
Nurse's Notes [facility] Name: Jd Devries Age: 54 yrs Sex: Male : 1970 Arrival Date: 06/13/2024 Time: 21:19 Bed DX4 Private MD: Diagnosis: Left elbow pain, Left elbow muscular mass Presentation: 06/13 21:53 Chief complaint: Patient states: PT DX WITH A MASS ON LEFT UPPER ARM IN JANUARY. PT br2 STATES BEGAN HAVING PAIN AND SWELLING TODAY. HAS BEEN SEEING HIS PCP AND IS SUPPOSED TO HAVE MRI BT CANT [facility] DEDUCTIBLE. Coronavirus screen: Client denies travel out of the [place] in the last 14 days. Ebola Screen: Patient denies exposure to infectious person. Initial Sepsis Screen: Does the patient meet any 2 criteria? No. Patient's initial sepsis screen is negative. Does the patient have a suspected source of infection? No. Patient's initial sepsis screen is negative. Risk Assessment: Do you want to hurt yourself or someone else? Patient reports no desire to harm self or others. Onset of symptoms was June 13, 2024 at 09:00. 21:53 Method Of Arrival: Ambulatory br2 21:53 Acuity: PARRIS 3 br2 Triage Assessment: 21:55 General: Appears in no apparent distress. comfortable, Behavior is calm, cooperative. br2 Pain: Complains of pain in left bicep Pain currently is 5 out of 10 on a pain scale. Historical: - Allergies: 21:55 PENICILLINS; br2 - PMHx: 21:55 Arthritis; Depression/Anxiety; BPH; High Cholesterol; diabetes mellitus; Hypertension; br2 Sleep Apnea; - PSHx: 21:55 colonoscopy/endoscopy; heart cath; br2 - Immunization history:: Adult Immunizations up to date. - Infectious Disease History:: Denies. - Social history:: Smoking status: Patient reports the use of cigarette tobacco products, cigars, Patient uses alcohol, occasionally. - Family history:: not pertinent. Screenin/21 00:00 [facility] ED Fall Risk Assessment (Adult) History of falling in the last 3 months, ha1 including since admission No falls in past 3 months (0 pts) Confusion or Disorientation No (0 pts) Intoxicated or Sedated No (0 pts) Impaired Gait No (0 pts) Mobility Assist Device Used No (0 pt) Altered Elimination No (0 pt) Score/Fall Risk Level 0 - 2 = Low Risk Oriented to surroundings, Maintained a safe environment, Educated pt \T\ family on fall prevention, incl call for assistance when getting out of bed, Hourly rounding (assess needs \T\ fall precautionary measures) done. Abuse screen: Denies threats or abuse. Denies injuries from another. Nutritional screening: No deficits noted. Tuberculosis screening: No symptoms or risk factors identified. Assessment: 06/13 22:00 General: Appears comfortable, Behavior is calm, cooperative. Pain: Complains of pain in ha1 left arm Pain currently is 6 out of 10 on a pain scale. Quality of pain is described as aching. Neuro: Level of Consciousness is awake, alert, obeys commands, Oriented to person, place, time, situation. Cardiovascular: Capillary refill < 3 seconds Patient's skin is warm and dry. Respiratory: Airway is patent Respiratory effort is even, unlabored, Respiratory pattern is regular, symmetrical. GI: No signs and/or symptoms were reported involving the gastrointestinal system. Derm: Skin is pink, warm \T\ dry. Musculoskeletal: Range of motion: intact in all extremities, Reports pain in left arm. 23:00 Reassessment: Patient and/or family updated on plan of care and expected duration. Pain ha1 level reassessed. Patient is alert, oriented x 3, equal unlabored respirations, skin warm/dry/pink. 06/14 00:00 Reassessment: Patient and/or family updated on plan of care and expected duration. Pain ha1 level reassessed. Patient is alert, oriented x 3, equal unlabored respirations, skin warm/dry/pink. 01:00 Reassessment: Patient and/or family updated on plan of care and expected duration. Pain ha1 level reassessed. Patient is alert, oriented x 3, equal unlabored respirations, skin warm/dry/pink. 02:00 Reassessment: Patient and/or family updated on plan of care and expected duration. Pain ha1 level reassessed. Patient is alert, oriented x 3, equal unlabored respirations, skin warm/dry/pink. 03:00 Reassessment: Patient and/or family updated on plan of care and expected duration. Pain ha1 level reassessed. Patient is alert, oriented x 3, equal unlabored respirations, skin warm/dry/pink. 04:00 Reassessment: Patient and/or family updated on plan of care and expected duration. Pain ha1 level reassessed. Patient is alert, oriented x 3, equal unlabored respirations, skin warm/dry/pink. 05:00 Reassessment: Patient and/or family updated on plan of care and expected duration. Pain ha1 level reassessed. Patient is alert, oriented x 3, equal unlabored respirations, skin warm/dry/pink. Patient states feeling better. Patient states symptoms have improved. Vital Signs: 06/13 21:53 BP 172 / 99; Pulse 94; Resp 18; Temp 97.9; Pulse Ox 99% ; Weight 165.56 kg; Height 5 br2 ft. 10 in. ; Pain 5/10; 22:00 BP 167 / 89; Pulse 89; Resp 17 S; Pulse Ox 98% on R/A; ha1 06/14 00:00 BP 165 / 95; Pulse 89; Resp 17 S; Pulse Ox 99% on R/A; ha1 02:00 BP 171 / 85; Pulse 95; Resp 19 S; Pulse Ox 99% on R/A; ha1 05:00 BP 149 / 81; Pulse 85; Resp 17 S; Temp 98(T); Pulse Ox 99% on R/A; ha1 06/13 21:53 Body Mass Index 52.37 (165.56 kg, 177.8 cm) br2 06/13 21:53 Pain Scale: Adult br2 [place] Coma Score: 16:21 Eye Response: spontaneous(4). Motor Response: obeys commands(6). Verbal Response: sp4 oriented(5). Total: 15. ED Course: 06/13 21:21 Patient arrived in ED. im 21:25 Malachi Melo MD is Attending Physician. sp4 21:55 Triage completed. br2 21:55 Arm band placed on. br2 22:00 Patient has correct armband on for positive identification. Bed in low position. Call ha1 light in reach. Side rails up X 1. Adult w/ patient. 22:00 Provided Education on: plan of care . ha1 22:53 Inserted saline lock: 20 gauge in right antecubital area, using aseptic technique. af3 Blood collected. Flushed with 10 mL NS. 23:40 UPPER EXTREMITY VENOUS UNILATE In Process Unspecified. EDMS 06/14 00:26 Upper Extremity W/ Cont In Process Unspecified. EDMS 04:42 Nima Chung MD is Referral Physician. sp4 05:27 No provider procedures requiring assistance completed. IV discontinued, intact, ha1 bleeding controlled, No redness/swelling at site. Pressure dressing applied. Administered Medications: 02:06 Drug: NS 0.9% IV 1000 ml IV at 1 bolus Per protocol; to be given as a bolus over 60 ha1 minutes Route: IV; Rate: 1 bolus; Site: right antecubital; 05:22 Follow up: Response: No adverse reaction; IV Status: Completed infusion ha1 Medication: 05:00 VIS not applicable for this client. ha1 Outcome: 04:43 Discharge ordered by . sp4 05:27 Discharged to home ambulatory, with family, ha1 05:27 Condition: stable 05:27 Discharge instructions given to patient, Instructed on discharge instructions, follow up and referral plans. Demonstrated understanding of instructions, follow-up care, 05:28 Patient left the ED. ha1 Signatures: Dispatcher [employer] EDOR Priti Larson, RN RN ha1 Malachi Melo MD MD sp4 Wendy Hernandes Belinda, RN RN br2 Sushma De Santiago
--- NOTE | 2024-06-14 04:43 | EDPHYS ---
Physician Documentation [facility] Name: Jd Devries Age: 54 yrs Sex: Male : 1970 Arrival Date: 06/13/2024 Time: 21:19 Bed DX4 Private MD: ED Physician Malachi Melo HPI: 06/13 21:25 This 54 yrs old Male presents to ER via Unassigned with complaints of Arm sp4 Pain. 06/14 16:21 54-year-old male presents with left elbow swelling, perception of muscular mass at the sp4 left medial elbow. This has been there since December 2023. The swelling has increased and patient developed pain in the last 24 hours.. Historical: - Allergies: 06/13 21:55 PENICILLINS; br2 - PMHx: :54 Arthritis; Depression/Anxiety; BPH; High Cholesterol; diabetes mellitus; Hypertension; br2 Sleep Apnea; - PSHx: 21:55 colonoscopy/endoscopy; heart cath; br2 - Immunization history:: Adult Immunizations up to date. - Infectious Disease History:: Denies. - Social history:: Smoking status: Patient reports the use of cigarette tobacco products, cigars, Patient uses alcohol, occasionally. - Family history:: not pertinent. ROS: 06/14 16:21 Constitutional: Negative for fever, chills, and weight loss, for left medial elbow sp4 swelling and pain All other systems are negative, Exam: 16:21 Constitutional: This is a well developed, well nourished patient who is awake, alert, sp4 and in no acute distress. Head/Face: Normocephalic, atraumatic. Eyes: Pupils equal round and reactive to light, extra-ocular motions intact. Lids and lashes normal. Conjunctiva and sclera are not injected. Cornea within normal limits. Periorbital areas with no swelling, redness, or edema. ENT: Nares patent. No nasal discharge, no septal abnormalities noted. Tympanic membranes are normal and external auditory canals are clear. Oropharynx with no redness, swelling, or masses, exudates, or evidence of obstruction, uvula midline. Mucous membranes moist. Neck: Trachea midline, no thyromegaly or masses palpated, and no cervical lymphadenopathy. Supple, full range of motion without nuchal rigidity, or vertebral point tenderness. Chest/axilla: Normal chest wall appearance and motion. Nontender with no deformity. No lesions are appreciated. Cardiovascular: Regular rate and rhythm with a normal S1 and S2. No gallops, murmurs, or rubs. Normal PMI, no JVD. No pulse deficits. Respiratory: Lungs have equal breath sounds bilaterally, clear to auscultation and percussion. No rales, rhonchi or wheezes noted. No increased work of breathing, no retractions or nasal flaring. Abdomen/GI: Soft, with normal bowel sounds. No distension or tympany. No guarding or rebound. No evidence of tenderness throughout. Back: No spinal tenderness. No costovertebral tenderness. Skin: Warm, dry with normal turgor. Normal color with no rashes, no lesions, and no evidence of cellulitis. MS/ Extremity: Pulses equal, no cyanosis. Neurovascular intact. Full, normal range of motion. Positive for left elbow swelling on the medial side. No obvious mass palpated. Neuro: Awake and alert, GCS 15, oriented to person, place, time, and situation. Cranial nerves II-XII grossly intact. Motor strength 5/5 in all extremities. Sensory grossly intact. Psych: Awake, alert, with orientation to person, place and time. Behavior, mood, and affect are within normal limits Vital Signs: 06/13 21:53 BP 172 / 99; Pulse 94; Resp 18; Temp 97.9; Pulse Ox 99% ; Weight 165.56 kg; Height 5 br2 ft. 10 in. ; Pain 5/10; 22:00 BP 167 / 89; Pulse 89; Resp 17 S; Pulse Ox 98% on R/A; ha1 06/14 00:00 BP 165 / 95; Pulse 89; Resp 17 S; Pulse Ox 99% on R/A; ha1 02:00 BP 171 / 85; Pulse 95; Resp 19 S; Pulse Ox 99% on R/A; ha1 05:00 BP 149 / 81; Pulse 85; Resp 17 S; Temp 98(T); Pulse Ox 99% on R/A; ha1 06/13 21:53 Body Mass Index 52.37 (165.56 kg, 177.8 cm) br2 06/13 21:53 Pain Scale: Adult br2 [place] Coma Score: 16:21 Eye Response: spontaneous(4). Motor Response: obeys commands(6). Verbal Response: sp4 oriented(5). Total: 15. MDM: 06/13 22:10 Medical Screening Exam initiated sp4 06/14 02:38 ED course: EXAM: US UPPER EXTREMITYVEINS LIMITED FOLLOW-UP UNILATERAL LEFT sp4 HISTORY:54-year-old male with left arm swelling. COMPARISON: No relevant imaging studies available for comparison. FINDINGS: Grayscale, color-flow, and spectral Doppler analysis was performed upon the veins. Left internal jugular vein, subclavian vein, axillary vein, brachial vein, and visualized portions of the cephalic and basilic veins are patent. Normal compressibility, augmentation, and flow. Left ulnar and radial veins demonstrated normal compressibility. IMPRESSION: No evidence for left upper extremity deep vein thrombosis. Electronically signed by: Amrit Fuentes MD 06/14/2024 01:00 AM . 04:41 ED course: 54 years Male Left arm mass TECHNICAL DATA: Axial CT imaging of the left sp4 upper extremity was performed with intravenous contrast. Sagittal and coronal reconstructed images were then performed. The CT study is performed according to ALARA (as low as reasonably achievable) or ALARA/IMAGE GENTLY, with automatic adjustment of mA and/or kV according to patient size. Performed on: 06/14/2024 at 12:35 AM Comparison: Left upper extremity venous Doppler performed on 06/13/2024 FINDINGS: Bones: There is no evidence of fracture or dislocation. Bone mineralization is normal. There are no significant degenerative or arthritic changes. No pathologic lytic or sclerotic bone lesions are identified. There is a probable bone island within the lateral epicondyle of the distal humerus. There are punctate areas of calcification in the proximal left humerus which are nonspecific and may be related to a possible enchondroma. Soft tissues: There is mild infiltration of the subcutaneous fat along the posterior aspect of the elbow joint and proximal forearm. No focal soft tissue mass lesion or discrete fluid collection is identified. There is no evidence of subcutaneous emphysema. No radiopaque foreign body is identified. No joint effusion is seen. IMPRESSION: 1. No evidence of acute osseous injury involving the left upper extremity. 2. Mild infiltration of the subcutaneous fat along the posterior aspect of the elbow joint and proximal forearm. No focal soft tissue mass lesion or discrete fluid collection is identified. This finding may be due to underlying cellulitis. 3. Probable bone island within the lateral epicondyle of the distal humerus. 4. Punctate areas of calcification in the proximal left humerus which are nonspecific and may be related to a possible enchondroma. Electronically signed by: Tessa Dillrudy VELÁSQUEZ 06/14/2024 04:31 AM. 16:21 Differential diagnosis: contusion, abrasion, tendonitis, Muscular mass. Data reviewed: sp4 vital signs, nurses notes, lab test result(s), radiologic studies, CT scan, ultrasound. Consideration of Admission/Observation Escalation of care including admission/observation considered. ED course: Ultrasound revealed no DVT, CT has revealed no sign of a muscular mass. Advised to follow-up with orthopedist for further evaluation.. 06/13 22:33 Order name: CBC with Diff; Complete Time: 02:35 sp4 06/13 22:33 Order name: CMP; Complete Time: 02:35 sp4 06/13 22:33 Order name: Lipase; Complete Time: 02:35 sp4 06/13 22:42 Order name: Upper Extremity W/ Cont [facility] 06/13 23:40 Order name: UPPER EXTREMITY VENOUS UNILATE [facility] 06/13 22:33 Order name: IV Saline Lock; Complete Time: 22:53 sp4 06/13 22:33 Order name: Labs collected and sent; Complete Time: 22:53 sp4 Administered Medications: 02:06 Drug: NS 0.9% IV 1000 ml IV at 1 bolus Per protocol; to be given as a bolus over 60 ha1 minutes Route: IV; Rate: 1 bolus; Site: right antecubital; 05:22 Follow up: Response: No adverse reaction; IV Status: Completed infusion ha1 Disposition: 16:21 Chart complete. sp4 Disposition Summary: 06/14/24 04:43 Discharge Ordered Notes: Please see Orthopedist for further consultation Location: Home sp4 Problem: new sp4 Symptoms: have improved sp4 Condition: Stable sp4 Diagnosis - Left elbow pain, Left elbow muscular mass sp4 Followup: sp4 - With: Nima Chung MD - When: 7 - 10 days - Reason: Recheck today's complaints Discharge Instructions: - Discharge Summary Sheet sp4 - Musculoskeletal Pain sp4 Forms: - Patient Portal Instructions sp4 Signatures: Dispatcher [employer] Priti Salazar RN RN ha1 Malachi Melo MD MD sp4 Luh Good RN RN br2 Corrections: (The following items were deleted from the chart) 06/13 22:42 22:34 Chest Angio+CT.RAD.BRZ ordered. EDMS EDMS 23:40 22:35 Extremity Venous Uni Ltd+US.RAD.BRZ ordered. EDMS EDMS
--- NOTE | 2024-06-14 05:24 | RAD REPORT ---
EXAM: CT left upper extremity with IV contrast CLINICAL DATA: 54 years Male Left arm mass TECHNICAL DATA: Axial CT imaging of the left upper extremity was performed with intravenous contrast. Sagittal and coronal reconstructed images were then performed. The CT study is performed according to ALARA (as low as reasonably achievable) or ALARA/IMAGE GENTLY, with automatic adjustment of mA and/or kV accord ing to patient size. Performed on: 06/14/2024 at 12:35 AM Comparison: Left upper extremity venous Doppler performed on 06/13/2024 FINDINGS: Bones: There is no evidence of fracture or dislocation. Bone mineralization is normal. There are no s ignificant degenerative or arthritic changes. No pathologic lytic or sclerotic bone lesions are identified. There is a probable bone island within the lateral epicondyle of the distal humerus. Ther e are punctate areas of calcification in the proximal left humerus which are nonspecific and may be related to a possible enchondroma. Soft tissues: There is mild infiltration of the subcutaneous fat along the posterior aspect of the el bow joint and proximal forearm. No focal soft tissue mass lesion or discrete fluid collection is identified. There is no evidence of subcutaneous emphysema. No radiopaque foreign body is identified. No joint effusion is seen. IMPRESSION: 1. No evidence of acute osseous injury involving the left upper extremity. 2. Mild infiltration of the subcutaneous fat along the posterior aspect of the elbow joint and prox imal forearm. No focal soft tissue mass lesion or discrete fluid collection is identified. This finding may be due to underlying cellulitis. 3. Probable bone island within the lateral epicondyle of the distal humerus. 4. Punctate areas of calcification in the proximal left humerus which are nonspecific and may be re lated to a possible enchondroma. Electronically signed by: Tessa Thompson DO 06/14/2024 04:31 AM CDT Due to temporary technical issues with the PACS/[employer] reporting system, reports are being loi d by the in-house radiologist without review as a courtesy to ensure prompt reporting the interpreting radiologist is fully responsible for the content of the report. Transcribed Date/Time: 06/14/2024 5:24 AM
[2024-06-14 05:54] VITALS: O2SAT 99
[2024-06-14 05:57] VITALS: BP 149/81; TEMP 98
== END 2024-06-14 05:28 | disposition home or self-care (01) ==
LOC: ER 21:19
DX: M25.822 Other specified joint disorders, left elbow (principal); Z72.0 Tobacco use
CPT/HCPCS: 96361; 85025; 36415; 83690; 80053; 73201; 93971; 96360; 99284; Q9967; J7030